=== PATIENT | female | born 1945 | race Caucasian/White ===

== ENCOUNTER 2018-06-01 12:47 | Emergency (ER) | payer MEDICARE, OTHER ==
--- NOTE | 2018-06-01 13:11 | ED ---
General Adult HPI - General Chief complaint: Extremity Injury, Lower Stated complaint: Lt leg pain Time Seen by Provider: 06/01/18 12:50 Source: EMS, RN notes reviewed Mode of arrival: EMS Limitations: altered mental status - History of Present Illness Initial comments: This is a 73-year-old female was sent to the emergency department to rule out DVT. Patient is unable give any history because she is alert and oriented times one and the only thing that she tells me is that she has no leg pain anymore she would like to go back to her room. According to the reports she has been complaining about leg pain today so the doctor [facility] and to rule out DVT of the left leg. There is been no report of any difficulty breathing leg swelling or leg redness. Patient has not had any reported fevers. There is no caregiver or family member with the patient so no further history is available currently - Related Data Previous Rx's Medication Instructions Recorded Acetaminophen Tab [Tylenol] 650 mg PO Q4HR PRN #0 tab 05/26/15 Ensure Complete 1 can PO TID-W/MEALS liquid 05/26/15 Hydrocortisone Cream 1 applic TOPICAL TID PRN #0 applic 05/26/15 [Hydrocortisone 2.5% Cream] Melatonin 3 mg PO HS tab 05/26/15 Metoprolol Tartrate [Lopressor] 12.5 mg PO BID tab 05/26/15 Levofloxacin [Levaquin] 250 mg PO 1600 #8 tab 05/27/15 Allergies Allergy/AdvReac Type Severity Reaction Status Date / Time aspirin Allergy Mild Nausea Verified 06/01/18 12:49 codeine Allergy Mild Nausea Verified 06/01/18 12:49 Penicillins Allergy Unknown Verified 06/01/18 12:49 cod Allergy Severe Unknown Uncoded 06/01/18 12:49 Review of Systems ROS Statement: Those systems with pertinent positive or pertinent negative responses have been documented in the HPI. ROS Other: All systems not noted in ROS Statement are negative. Past Medical History Past Medical History: Asthma, Chest Pain / Angina, Dementia, Hypertension, Memory Impairment, Sleep Apnea/CPAP/BIPAP Additional Past Medical History / Comment(s): recent fracture humerus/ compression fracture, constipation, diverticulitis(per colonoscopy), ddd lumbar spine, History of Any Multi-Drug Resistant Organisms: None Reported Past Surgical History: Back Surgery, Orthopedic Surgery Past Anesthesia/Blood Transfusion Reactions: No Reported Reaction Past Psychological History: Anxiety, Depression Smoking Status: Former smoker Past Alcohol Use History: Heavy Past Drug Use History: None Reported - Past Family History Father Family Medical History: Cancer Mother Additional Family Medical History / Comment(s): HEART DISEASE General Exam - General Exam Comments Initial Comments: GENERAL: Patient is well-developed and well-nourished. Patient is nontoxic and well- hydrated and is in no acute distress. ENT: Neck is soft and supple. No significant lymphadenopathy is noted. Oropharynx is clear. Moist mucous membranes. EYES: The sclera were anicteric and conjunctiva were pink and moist. Extraocular movements were intact and pupils were equal round and reactive to light. Eyelids were unremarkable. PULMONARY: Unlabored respirations. Good breath sounds bilaterally. No audible rales rhonchi or wheezing was noted. CARDIOVASCULAR: There is a regular rate and rhythm ABDOMEN: Soft and nontender with normal bowel sounds. SKIN: Skin is clear with no lesions or rashes and otherwise unremarkable. NEUROLOGIC: Patient is alert and oriented times one. Cranial nerves II through XII are grossly intact. Motor and sensory are also intact. Normal speech and volume. Symmetrical smile. MUSCULOSKELETAL: Normal extremities with adequate strength and full range of motion. No lower extremity swelling or edema. No calf tenderness. Patient has no calf tenderness and there is no swelling LYMPHATICS: No significant lymphadenopathy is noted PSYCHIATRIC: Normal psychiatric evaluation. Limitations: altered mental status Course Vital Signs 06/01/18 12:48 Temperature 98.5 F Pulse Rate 60 Respiratory 18 Rate Blood Pressure 165/79 O2 Sat by Pulse 95 Oximetry Medical Decision Making - Medical Decision Making Bilateral ultrasounds were negative for DVT. Bilateral legs were done because the daughter stated that the patient complained of right leg pain. The [facility] stated that. Patient complains of left leg pain. I went back in the room and reevaluated the patient the daughter was present patient had no complaints at this time. Patient and full range of motion of both hips knees and ankles. Disposition Clinical Impression: Leg pain Disposition: HOME SELF-CARE Condition: Good Instructions: Leg Pain (ED) Is patient prescribed a controlled substance at d/c from ED?: No Referrals: Rory Ferguson DO [Primary Care Provider] - 1-2 days Time of Disposition: 14:08
--- NOTE | 2018-06-01 14:01 | US ---
EXAMINATION TYPE: US venous doppler duplex LE BI DATE OF EXAM: 06/01/2018 1:53 PM COMPARISON: NONE CLINICAL HISTORY: Pain. Leg pain SIDE PERFORMED: Bilateral TECHNIQUE: The lower extremity deep venous system is examined utilizing real time linear array sonog jerilyn with graded compression, doppler sonography and color-flow sonography. VESSELS IMAGED: External Iliac Vein (EIV) Common Femoral Vein Deep Femoral Vein Greater Saphenous Vein * Femoral Vein Popliteal Vein Small Saphenous Vein * Proximal Calf Veins (* superficial vessels) Right Leg: Appears negative for DVT Left Leg: Appears negative for DVT IMPRESSION: 1. No diagnostic evidence of DVT as visualized.
[2018-06-01 15:57] VITALS: BP 149/79; PULSE 66; RESP 20; TEMP 98
== END 2018-06-01 15:55 | disposition home or self-care (01) ==
LOC: EC 12:47
DX: M79.605 Pain in left leg (principal); G47.30 Sleep apnea, unspecified; Z88.0 Allergy status to penicillin; Z88.5 Allergy status to narcotic agent; Z88.6 Allergy status to analgesic agent; Z91.013 Allergy to seafood; Z87.891 Personal history of nicotine dependence
CPT/HCPCS: 93970; 99284

== ENCOUNTER 2018-08-19 14:48 | Observation (INO) | payer MEDICARE ==
--- NOTE | 2018-08-19 15:40 | ED ---
General Adult HPI - General Chief complaint: Psychiatric Symptoms Stated complaint: Mental Health Time Seen by Provider: 08/19/18 14:54 Source: EMS Mode of arrival: EMS Limitations: altered mental status - History of Present Illness Initial comments: Dictation was produced using [employer] dictation software. please excuse any grammatical, word or spelling errors. Chief Complaint: 33-year-old female past medical history of dementia, memory impairment, sleep apnea, psychiatric disease presents with aggressive and combative behavior at residential. History of Present Illness: Patient is 73-year-old female. Patient has history of psychiatric disease, dementia. She was seen today the swelling abnormal behavior. The report that patient has been more confused and combative recently. Patient has been refusing to take her medications. Daughter who is at bedside with patient reports that she had smeared feces on her room chair. Patient also has been hiding her medications in her mouth and spitting them out. Patient has no complaints at this time. Per daughter patient is acting within reasonable limits. The ROS documented in this emergency department record has been reviewed and confirmed by me. Those systems with pertinent positive or negative responses have been documented in the HPI. All other systems are other negative and/or noncontributory. PHYSICAL EXAM: General Impression: Alert and oriented x3, not in acute distress HEENT: Normocephalic atraumatic, extra-ocular movements intact, pupils equal and reactive to light bilaterally, mucous membranes moist. Cardiovascular: Heart regular rate and rhythm, S1&S2 audible, no murmurs, rubs or gallops Chest: Lungs clear to auscultation bilaterally, no rhonchi, no wheeze, no rales Abdomen: Bowel sounds present, abdomen soft, non-tender, non-distended, no organomegaly Musculoskeletal: Pulses present and equal in all extremities, no peripheral edema Motor: Power 5/5 bilaterally, no focal deficits noted Neurological: CN II-XII grossly intact, no focal motor or sensory deficits noted Skin: Intact with no visualized rashes Psych: Pleasant ED course: 73-year-old female presents with combativeness, medication noncompliance and aggressive behavior at residential. As upon arrival are within acceptable limits.Laboratory evaluation obtained. Leukocytosis of 14.4. Rest of CBC unremarkable. Metabolic panel is grossly unremarkable. Urinalysis consistent with urinary tract infection. Rapid urine drug screen is negative. Given patient's symptoms of acute delirium in abnormal behavior. This is likely secondary to urinary tract infection. Patient be admitted. She is given IV antibiotics. Psychiatry to be on consult. She reevaluated found in stable medical condition. Patient continues to be pleasant and responsive. No aggressive or combative behavior noted while patient was in emergency department. - Related Data Home Medications Medication Instructions Recorded Confirmed Acetaminophen Tab [Tylenol] 500 mg PO QID 06/01/18 08/19/18 Acetaminophen [Tylenol Arthritis] 650 mg PO Q8HR PRN 06/01/18 08/19/18 Albuterol Nebulized [Ventolin 2.5 mg INHALATION RT-Q6H PRN 06/01/18 08/19/18 Nebulized] Cholecalciferol (Vitamin D3) 2,000 unit PO DAILY@1300 06/01/18 08/19/18 [Vitamin D3] Lactulose 10 gm PO Q12HR 06/01/18 08/19/18 Sertraline [Zoloft] 50 mg PO DAILY@0900 06/01/18 08/19/18 risperiDONE [Risperdal M-Tab] 0.5 mg PO DAILY@1700 06/01/18 08/19/18 Metoprolol Tartrate [Lopressor] 12.5 mg PO BID 08/19/18 08/19/18 Multivitamins, Thera [Multivitamin 1 tab PO DAILY 08/19/18 08/19/18 (formulary)] diphenhydrAMINE [Benadryl] 25 mg PO Q8H PRN 08/19/18 08/19/18 Allergies Allergy/AdvReac Type Severity Reaction Status Date / Time aspirin Allergy Mild Nausea Verified 08/19/18 15:07 codeine Allergy Mild Nausea Verified 08/19/18 15:07 Penicillins Allergy Unknown Verified 08/19/18 15:07 cod Allergy Severe Unknown Uncoded 08/19/18 14:59 Review of Systems ROS Statement: Those systems with pertinent positive or pertinent negative responses have been documented in the HPI. ROS Other: All systems not noted in ROS Statement are negative. Past Medical History Past Medical History: Asthma, Chest Pain / Angina, Dementia, Hypertension, Memory Impairment, Sleep Apnea/CPAP/BIPAP Additional Past Medical History / Comment(s): recent fracture humerus/ compression fracture, constipation, diverticulitis(per colonoscopy), ddd lumbar spine, History of Any Multi-Drug Resistant Organisms: None Reported Past Surgical History: Back Surgery, Orthopedic Surgery Past Anesthesia/Blood Transfusion Reactions: No Reported Reaction Past Psychological History: Anxiety, Depression Smoking Status: Former smoker Past Alcohol Use History: Heavy Past Drug Use History: None Reported - Past Family History Father Family Medical History: Cancer Mother Additional Family Medical History / Comment(s): HEART DISEASE General Exam Limitations: altered mental status Course Vital Signs 08/19/18 14:56 Temperature 99.0 F Pulse Rate 77 Respiratory 18 Rate Blood Pressure 150/92 O2 Sat by Pulse 96 Oximetry Medical Decision Making - Lab Data Result diagrams: 08/19/18 17:20 08/19/18 17:20 Lab Results 08/19/18 08/19/18 08/19/18 Range/Units 17:20 17:20 17:50 WBC 14.4 H (3.8-10.6) k/uL RBC 3.81 (3.80-5.40) m/uL Hgb 13.2 (11.4-16.0) gm/dL Hct 39.1 (34.0-46.0) % MCV 102.7 H (80.0-100.0) fL MCH 34.6 (25.0-35.0) pg MCHC 33.7 (31.0-37.0) g/dL RDW 13.5 (11.5-15.5) % Plt Count 395 (150-450) k/uL Neutrophils % 68 % Lymphocytes % 21 % Monocytes % 5 % Eosinophils % 4 % Basophils % 0 % Neutrophils # 9.7 H (1.3-7.7) k/uL Lymphocytes # 3.0 (1.0-4.8) k/uL Monocytes # 0.8 (0-1.0) k/uL Eosinophils # 0.6 (0-0.7) k/uL Basophils # 0.1 (0-0.2) k/uL Macrocytosis Slight Sodium 142 (137-145) mmol/L Potassium 4.0 (3.5-5.1) mmol/L Chloride 108 H (98-107) mmol/L Carbon Dioxide 26 (22-30) mmol/L Anion Gap 8 mmol/L BUN 19 H (7-17) mg/dL Creatinine 0.71 (0.52-1.04) mg/dL Est GFR (CKD-EPI)AfAm >90 (>60 ml/min/1.73 sqM) Est GFR (CKD-EPI)NonAf 86 (>60 ml/min/1.73 sqM) Glucose 125 H (74-99) mg/dL Calcium 9.6 (8.4-10.2) mg/dL Urine Color Yellow Urine Appearance Cloudy H (Clear) Urine pH 5.5 (5.0-8.0) Ur Specific [place] 1.026 (1.001-1.035) Urine Protein Trace H (Negative) Urine Glucose (UA) Negative (Negative) Urine Ketones Negative (Negative) Urine Blood Moderate H (Negative) Urine Nitrite Positive H (Negative) Urine Bilirubin Negative (Negative) Urine Urobilinogen <2.0 (<2.0) mg/dL Ur Leukocyte Esterase Small H (Negative) Urine RBC 8 H (0-5) /hpf Urine WBC 55 H (0-5) /hpf Ur Squamous Epith Cells 4 (0-4) /hpf Amorphous Sediment Occasional H (None) /hpf Urine Bacteria Many H (None) /hpf Urine Mucus Few H (None) /hpf Urine Opiates Screen Not Detected (NotDetected) Ur Oxycodone Screen Not Detected (NotDetected) Urine Methadone Screen Not Detected (NotDetected) Ur Propoxyphene Screen Not Detected (NotDetected) Ur Barbiturates Screen Not Detected (NotDetected) U Tricyclic Antidepress Not Detected (NotDetected) Ur Phencyclidine Scrn Not Detected (NotDetected) Ur Amphetamines Screen Not Detected (NotDetected) U Methamphetamines Scrn Not Detected (NotDetected) U Benzodiazepines Scrn Not Detected (NotDetected) Urine Cocaine Screen Not Detected (NotDetected) U Marijuana (THC) Screen Not Detected (NotDetected) Disposition Clinical Impression: UTI (urinary tract infection), Acute delirium Disposition: ADMITTED IP TO THIS HOSP Condition: Fair Referrals: Luis Wan MD [Primary Care Provider] - 1-2 days Decision Time: 19:07
--- NOTE | 2018-08-19 17:01 | XR ---
EXAMINATION TYPE: XR chest 2V DATE OF EXAM: 08/19/2018 COMPARISON: 05/21/2015 HISTORY: Confusion TECHNIQUE: Frontal and lateral views of the chest are obtained. FINDINGS: There is no heart failure nor confluent pneumonic infiltrate. Costophrenic angles are rodriguez r. Bony thorax is intact. IMPRESSION: No active cardiopulmonary disease. Cardiac silhouette increased compared to last exam. T here is probably mild cardiomegaly.
[2018-08-19 17:44] LABS: Anion Gap 8 mmol/L; Blood Urea Nitrogen 19 mg/dL (7-17); Calcium 9.6 mg/dL (8.4-10.2); Carbon Dioxide 26 mmol/L (22-30); Chloride 108 mmol/L (98-107); Glucose 125 mg/dL (74-99); Sodium 142 mmol/L (137-145)
[2018-08-19 17:45] LABS: Basophils # (A) 0.1 k/uL (0-0.2); Basophils % (A) 0 %; Eosinophils # (A) 0.6 k/uL (0-0.7); Eosinophils % (A) 4 %; HCT 39.1 % (34.0-46.0); HGB 13.2 gm/dL (11.4-16.0); Lymphocytes % (A) 21 %; MCH 34.6 pg (25.0-35.0); MCHC 33.7 g/dL (31.0-37.0); MCV 102.7 fL (80.0-100.0); Macrocytosis Slight; Monocytes # (A) 0.8 k/uL (0-1.0); Monocytes % (A) 5 %; Neutrophils # (A) 9.7 k/uL (1.3-7.7); Neutrophils % (A) 68 %; Platelet Count 395 k/uL (150-450); RBC 3.81 m/uL (3.80-5.40); RDW 13.5 % (11.5-15.5); WBC 14.4 k/uL (3.8-10.6)
[2018-08-19 18:13] LABS: Amorphous Sediment,Urine Occasional /hpf; Appearance,Urine Cloudy (Clear); Bacteria,Urine Many /hpf; Bilirubin,Urine Negative (Negative); Blood,Urine Moderate (Negative); Color,Urine Yellow; Glucose,Urine (UA) Negative (Negative); Ketones,Urine Negative (Negative); Leukocyte Esterase,Urine Small (Negative); Mucus,Urine Few /hpf; Nitrite,Urine Positive (Negative); PH, Urine 5.5 (5.0-8.0); Protein,Urine Trace (Negative); RBC,Urine 8 /hpf (0-5); Specific Gravity,Urine 1.026 (1.001-1.035); Squamous Epithelial Cell,Urine 4 /hpf (0-4); Urobilinogen,Urine <2.0 mg/dL (<2.0)
[2018-08-19 18:20] LABS: Cocaine Screen,Urine Not Detected (NotDetected); Opiate Screen,Urine Not Detected (NotDetected); Phencyclidine Screen,Urine Not Detected (NotDetected); Urn Cannabinoid Scrn Not Detected (NotDetected)
[2018-08-19 18:21] LABS: Amphetamine Screen,Urine Not Detected (NotDetected); Barbiturate Screen,Urine Not Detected (NotDetected); Benzodiazepines Screen,Urine Not Detected (NotDetected); Methadone Screen, Urine Not Detected (NotDetected); Oxycodone Screen, Urine Not Detected (NotDetected); Tricyclic Antidepressant,Urine Not Detected (NotDetected)
[2018-08-19] MEDS ORDERED: NALOXONE 0.4 MG/ML 1 ML VIAL IV PRN (19:07)
[2018-08-19] MEDS ORDERED: NON-FORMULARY DRUG (Acetaminophen [Tylenol Arthritis] 650 MG) PO PRN (19:10)
[2018-08-19] MEDS ORDERED: ALBUTEROL NEBULIZED 2.5 MG/3 ML INHALATION PRN (19:10)
[2018-08-19] MEDS: SODIUM CHLORIDE 0.9% 1,000 ML IV SCH (19:16)
[2018-08-19] MEDS: ACETAMINOPHEN TAB 325 MG TAB PO PRN (22:09)
[2018-08-19] MEDS: METOPROLOL TARTRATE 12.5 MG TAB PO SCH (22:09)
[2018-08-20] MEDS: SERTRALINE 50 MG TAB PO SCH (08:27)
[2018-08-20] MEDS: METOPROLOL TARTRATE 12.5 MG TAB PO SCH ×2 (08:27→20:29)
[2018-08-20] MEDS: ACETAMINOPHEN TAB 325 MG TAB PO PRN ×2 (10:31→20:23)
[2018-08-20 11:53] VITALS: BMI 33.3
[2018-08-20] MEDS ORDERED: ALPRAZolam 0.25 MG TAB PO PRN (15:44)
[2018-08-20] MEDS ORDERED: TEMAZEPAM 15 MG CAP PO PRN (15:44)
[2018-08-20] MEDS ORDERED: LORazepam 2 MG/ML INJ IV PRN (15:44)
[2018-08-20] MEDS ORDERED: LORazepam 0.5 MG TAB PO PRN (15:44)
--- NOTE | 2018-08-20 16:07 | HP ---
HISTORY AND PHYSICAL DATE OF SERVICE: 08/20/2018. CHIEF COMPLAINT: Change in mental status. HISTORY OF PRESENT ILLNESS: This 73-year-old woman with a past medical history of multiple medical problems including history of asthma, history of dementia, hypertension, history of sleep apnea, history of back surgery, history of anxiety and depression, being followed by Dr. Wan in the outpatient setting, was admitted with change in mental status. The patient has multiple psychiatric illness also. The patient was found to be aggressive and combative at the [facility]. The patient has UTI with sepsis. The patient is being closely monitored. There is no history of fevers or rigors. No history of headache, loss of consciousness, seizures. PAST MEDICAL HISTORY: History of asthma, dementia, hypertension, sleep apnea, history of back surgery, anxiety and depression. MEDICATIONS: Prior to admission include home medications of: 1. Risperdal 0.5 mg p.o. daily. 2. Benadryl 25 mg q.i.d. 3. Zoloft 50 mg p.o. daily. 4. Multivitamins daily. 5. Lopressor 2.5 mg b.i.d. 6. Lactulose 10 mg p.o. b.i.d. 7. Vitamin D3, 2000 daily. 8. Ventolin 2.5 every 6 hours p.r.n. 9. Tylenol 500 mg q.i.d. 10.Tylenol 650 every 8 p.r.n. ALLERGIES: ASPIRIN, CODEINE, PENICILLIN. FAMILY HISTORY: History of heart disease in the family. SOCIAL HISTORY: No history of smoking. No history of alcohol intake. REVIEW OF SYSTEMS: ENT: No diminished vision or hearing. CARDIOVASCULAR: No angina. GI: As mentioned. : No dysuria. NERVOUS SYSTEM: No numbness or weakness. MUSCULOSKELETAL: As mentioned. HEMATOLOGY: As mentioned. ENDOCRINE: As mentioned. CONSTITUTIONAL: As mentioned. PSYCHIATRY: As mentioned. PHYSICAL EXAMINATION: Alert, oriented x2. Pulse 74, blood pressure 150/74, respirations 16, temperature 98.3, pulse ox 97% on room air. HEENT/NECK: Conjunctivae normal. CARDIOVASCULAR: S1 and S2 muffled. LUNGS: Breath sounds diminished in the bases. Scattered rhonchi and crackles. ABDOMEN: Soft, nontender. No mass. EXTREMITIES: Legs no edema. No swelling. NERVOUS SYSTEM: Higher functions as mentioned earlier. Moves all 4 limbs. No focal deficits. LYMPHATICS: No lymph nodes palpable in the neck or axillae. SKIN: No bruises. LAB STUDIES: WBC 14.4, sodium 142, potassium 4. UA noted. ASSESSMENT: 1. Acute urinary tract infection with sepsis present on admission. 2. Change in mental status acute on chronic metabolic encephalopathy secondary to urinary tract infection. 3. Increased WBC. 4. History of asthma. 5. History of chest pain. 6. History dementia. 7. Hypertension. 8. History of sleep apnea. 9. History of recent humerus fracture. 10.History of constipation. 11.History of back surgery. 12.Anxiety and depression. RECOMMENDATIONS AND DISCUSSION: In this 73-year-old woman who presented with multiple complex medical issues, at this time I recommend to continue current medications and symptomatic treatment. Otherwise, I would recommend broad-spectrum IV antibiotics. Resume the home medications. Follow the cultures. Otherwise, symptomatic treatment. Further recommendations to follow. MMODL / IJN: [id number] /
[2018-08-20] MEDS ORDERED: risperiDONE ODT 1 MG TAB PO SCH (17:00)
--- NOTE | 2018-08-20 17:26 | P.CN ---
Psychiatric Consult - . Consult date: 08/20/18 Consult:: 08/20/18 17:21 Chief Complaint : Altered Mental status HPI : Ms. Ahn is 73 yo single female with h/o Dementia admitted here secondary to worsening confusion. She is diagnosed with UTI and has been treated accordingly. Patient is pleasantly confused and poor historian. Majority of history provided from her daughter whom I had detailed discussion. She is concerned about her current medications. Patient has long h/o Frontal Lobe dementia and recent UTI. MSE : Alert, awake, interactive. Poor eye contact. Speech few words. Mood anxious with congruent affect Denies having any auditory and visual hallucinations. Has no suicidal ideation. Insight and judgment impaired. Plan : Delirium secondary to UTI Dementia associated behaviors Will discontinue Risperdal due to major side effects and per family wishes. Will start trial of Abilify 2 mg po qam and use Atican 0.5 mg po TOD to help with sun downing. Psychiatry will follow.
[2018-08-20] MEDS: ARIPiprazole 2 MG TAB PO SCH (18:32)
[2018-08-20] MEDS: PHENAZOPYRIDINE 100 MG TAB PO SCH ×2 (18:32→20:24)
[2018-08-20] MEDS: HEPARIN SODIUM,PORCINE 5,000 UNIT/ML 1 ML VIAL SQ SCH (20:23)
[2018-08-20] MEDS: LACTULOSE 20 GM/30 ML CUP PO SCH (20:23)
[2018-08-20] MEDS: SODIUM CHLORIDE 0.9% 1,000 ML IV SCH (20:24)
[2018-08-20 21:28] VITALS: RESP 18
[2018-08-20] MEDS: LORazepam 0.5 MG TAB PO SCH (23:51)
[2018-08-21] MEDS: METOPROLOL TARTRATE 12.5 MG TAB PO SCH ×2 (09:39→21:30)
[2018-08-21] MEDS: LACTULOSE 20 GM/30 ML CUP PO SCH ×2 (09:39→21:25)
[2018-08-21] MEDS: LORazepam 0.5 MG TAB PO SCH ×3 (09:39→21:30)
[2018-08-21] MEDS: PANTOPRAZOLE 40 MG TABLET PO SCH (09:39)
[2018-08-21] MEDS: CHOLECALCIFEROL 1,000 UNIT TAB PO SCH (09:39)
[2018-08-21] MEDS: FOLIC ACID 1 MG TAB PO SCH (09:40)
[2018-08-21] MEDS: PHENAZOPYRIDINE 100 MG TAB PO SCH ×3 (09:40→21:30)
[2018-08-21] MEDS: THIAMINE 100 MG TAB PO SCH (09:40)
[2018-08-21] MEDS: ARIPiprazole 2 MG TAB PO SCH (09:41)
[2018-08-21] MEDS: HEPARIN SODIUM,PORCINE 5,000 UNIT/ML 1 ML VIAL SQ SCH ×2 (09:41→21:32)
[2018-08-21] MEDS: SERTRALINE 50 MG TAB PO SCH (09:41)
[2018-08-21] MEDS: MULTIVITAMINS, THERA 1 EACH TAB PO SCH (09:44)
[2018-08-21] MEDS: cefTRIAXone 1,000 MG VIAL (IM USE) IM SCH (11:22)
[2018-08-21 16:29] LABS: Anion Gap 9 mmol/L; Blood Urea Nitrogen 12 mg/dL (7-17); Calcium 9.6 mg/dL (8.4-10.2); Carbon Dioxide 27 mmol/L (22-30); Chloride 109 mmol/L (98-107); Glucose 124 mg/dL (74-99); Potassium 4.1 mmol/L (3.5-5.1); Sodium 145 mmol/L (137-145)
[2018-08-21 16:37] LABS: Basophils % (A) 0 %; Eosinophils # (A) 0.4 k/uL (0-0.7); Eosinophils % (A) 4 %; HGB 13.3 gm/dL (11.4-16.0); Lymphocytes # (A) 2.4 k/uL (1.0-4.8); Lymphocytes % (A) 22 %; MCH 35.4 pg (25.0-35.0); MCHC 33.1 g/dL (31.0-37.0); MCV 106.9 fL (80.0-100.0); Macrocytosis Moderate; Mean Platelet Volume 7.1; Monocytes # (A) 0.5 k/uL (0-1.0); Monocytes % (A) 5 %; Neutrophils # (A) 7.6 k/uL (1.3-7.7); Neutrophils % (A) 68 %; Platelet Count 365 k/uL (150-450); RBC 3.74 m/uL (3.80-5.40); RDW 13.3 % (11.5-15.5); WBC 11.1 k/uL (3.8-10.6)
--- NOTE | 2018-08-21 17:05 | PN ---
PROGRESS NOTE DATE OF SERVICE: 08/21/2018 This 73-year-old woman who was admitted with acute UTI with sepsis also had change in mental status also. The patient is confused. The patient pulled IV. Psychiatry also saw the patient. Patient is receiving IV Rocephin at this time. The cultures showed gram-negative bacilli. No chest pain. No palpitations. Medications adjusted per Psychiatry. EXAM: Alert and oriented x1. Pulse 82, blood pressure 172/90, respirations 18, temperature 97.2, pulse ox 94% on room air. HEENT: Conjunctivae normal. NECK: No jugular venous distention. CARDIOVASCULAR: S1, S2 muffled. RESPIRATORY: Breath sounds diminished in the bases. Scattered rhonchi. ABDOMEN: Soft. NERVOUS SYSTEM: No focal deficits. LAB STUDIES: WBC 14.4. UA noted. Urine culture noted. ASSESSMENT: 1. Acute urinary tract infection with sepsis, present on admission. 2. Change in mental status acute metabolic secondary to urinary tract infection. 3. Increased WBC. 4. History of asthma. 5. History of dementia. 6. History of chest pain. 7. Hypertension. 8. History of sleep apnea. 9. History of recent humerus fracture. 10.History of constipation. 11.History of back surgery. 12.Anxiety, depression. RECOMMENDATIONS AND DISCUSSION: I recommend to continue current management, continue monitoring and symptomatic treatment. Otherwise at this time I recommend continue the antibiotics. Await culture report. Guarded prognosis. Further recommendations to follow. MMODL / IJN: [id number] /
[2018-08-21] MEDS: SODIUM CHLORIDE 0.9% 1,000 ML IV SCH (21:25)
[2018-08-21] MEDS: ACETAMINOPHEN TAB 325 MG TAB PO PRN (21:30)
[2018-08-22 02:10] LABS: Glucose,Whole Blood 122 mg/dL (75-99)
[2018-08-22] MEDS: LORazepam 0.5 MG TAB PO SCH ×2 (07:56→17:30)
[2018-08-22] MEDS: ACETAMINOPHEN TAB 325 MG TAB PO PRN (07:58)
[2018-08-22] MEDS: PANTOPRAZOLE 40 MG TABLET PO SCH (07:58)
[2018-08-22] MEDS: cefTRIAXone 1,000 MG VIAL (IM USE) IM SCH (08:09)
[2018-08-22] MEDS: HEPARIN SODIUM,PORCINE 5,000 UNIT/ML 1 ML VIAL SQ SCH (08:09)
[2018-08-22] MEDS: ARIPiprazole 2 MG TAB PO SCH (08:10)
[2018-08-22] MEDS: PHENAZOPYRIDINE 100 MG TAB PO SCH ×2 (08:10→17:30)
[2018-08-22] MEDS: SERTRALINE 50 MG TAB PO SCH (08:11)
[2018-08-22] MEDS: METOPROLOL TARTRATE 12.5 MG TAB PO SCH (08:15)
[2018-08-22] MEDS: LACTULOSE 20 GM/30 ML CUP PO SCH (08:15)
[2018-08-22 09:15] LABS: Basophils % (A) 0 %; Eosinophils # (A) 0.6 k/uL (0-0.7); Eosinophils % (A) 6 %; HCT 42.1 % (34.0-46.0); HGB 13.7 gm/dL (11.4-16.0); Lymphocytes % (A) 31 %; MCH 34.3 pg (25.0-35.0); MCHC 32.5 g/dL (31.0-37.0); MCV 105.5 fL (80.0-100.0); Macrocytosis Slight; Mean Platelet Volume 6.6; Monocytes # (A) 0.5 k/uL (0-1.0); Monocytes % (A) 5 %; Neutrophils # (A) 5.5 k/uL (1.3-7.7); Neutrophils % (A) 56 %; Platelet Count 417 k/uL (150-450); RBC 3.99 m/uL (3.80-5.40); RDW 13.3 % (11.5-15.5); WBC 9.8 k/uL (3.8-10.6)
[2018-08-22 09:39] LABS: Anion Gap 11 mmol/L; Blood Urea Nitrogen 14 mg/dL (7-17); Calcium 9.7 mg/dL (8.4-10.2); Carbon Dioxide 26 mmol/L (22-30); Chloride 107 mmol/L (98-107); Glucose 124 mg/dL (74-99); Potassium 3.8 mmol/L (3.5-5.1); Sodium 144 mmol/L (137-145)
--- NOTE | 2018-08-22 11:50 | P.DS ---
Providers Date of admission: 08/19/18 19:07 Expected date of discharge: 08/22/18 Attending physician: Aster Edwards Consults: 08/19/18 19:08 Consult Physician Routine Consulting Provider: Aston Borrego Consult Reason/Comments: altered mental status Do you want consulting provider notified?: Yes 08/21/18 16:35 Consult Physician Routine Consulting Provider: Aston Borrego Consult Reason/Comments: legal guardian would like meds adjusted back to home meds and dose Do you want consulting provider notified?: Yes, Notify in am Primary care physician: Luis Wan Hospital Course: Final Diagnoses: -Sepsis secondary to Acute UTI with E. coli, present on admission -Continue mental status, acute metabolic encephalopathy secondary to acute UTI -Hypertension -History of recurrent humerus fracture -Anxiety, depression Hospital course: This is a 73-year-old female in with acute UTI, E. coli with sepsis, with change in mental status. Pleasantly confused. Evaluated by psychiatry with medications adjusted. Significant clinical improvement. Patient has been cleared by psychiatry for discharge. Patient is being discharged to [facility] subacute rehab in a stable condition with guarded prognosis. EXAM: GENERAL: Alert and oriented 1, no acute distress CARDIOVASCULAR: S1, S2 muffled. No murmur RESPIRATION: Breath sounds diminished in the bases. Scattered rhonchi. ABDOMEN: Soft, nontender . No guarding. Bowel sounds heard. NERVOUS SYSTEM: No focal deficits. The impression and plan of care has been dictated as directed. : I performed a history and examination of this patient, discussed the same with the dictator. I agree with the dictator's note ,documented as a scribe. Any additional findings or plans will be noted. Time taken: 35 minutes Patient Condition at Discharge: Stable Plan - Discharge Summary Discharge Rx Participant: Yes New Discharge Prescriptions: New Amoxicillin/Potassium Clav [Augmentin 875-125 Tablet] 1 tab PO Q12HR #10 tab LORazepam [Ativan] 0.5 mg PO Q8HR #9 tab Continue Albuterol Nebulized [Ventolin Nebulized] 2.5 mg INHALATION RT-Q6H PRN PRN Reason: Shortness Of Breath Acetaminophen Tab [Tylenol] 500 mg PO QID Lactulose 10 gm PO Q12HR Sertraline [Zoloft] 50 mg PO DAILY@0900 Cholecalciferol (Vitamin D3) [Vitamin D3] 2,000 unit PO DAILY@1300 risperiDONE [Risperdal M-Tab] 0.5 mg PO DAILY@1700 Acetaminophen [Tylenol Arthritis] 650 mg PO Q8HR PRN PRN Reason: Pain diphenhydrAMINE [Benadryl] 25 mg PO Q8H PRN PRN Reason: SWELLING Metoprolol Tartrate [Lopressor] 12.5 mg PO BID Multivitamins, Thera [Multivitamin (formulary)] 1 tab PO DAILY Discharge Medication List Acetaminophen Tab [Tylenol] 500 mg PO QID 06/01/18 [History] Acetaminophen [Tylenol Arthritis] 650 mg PO Q8HR PRN 06/01/18 [History] Albuterol Nebulized [Ventolin Nebulized] 2.5 mg INHALATION RT-Q6H PRN 06/01/18 [ History] Cholecalciferol (Vitamin D3) [Vitamin D3] 2,000 unit PO DAILY@1300 06/01/18 [ History] Lactulose 10 gm PO Q12HR 06/01/18 [History] Sertraline [Zoloft] 50 mg PO DAILY@0900 06/01/18 [History] risperiDONE [Risperdal M-Tab] 0.5 mg PO DAILY@1700 06/01/18 [History] Metoprolol Tartrate [Lopressor] 12.5 mg PO BID 08/19/18 [History] Multivitamins, Thera [Multivitamin (formulary)] 1 tab PO DAILY 08/19/18 [History ] diphenhydrAMINE [Benadryl] 25 mg PO Q8H PRN 08/19/18 [History] Amoxicillin/Potassium Clav [Augmentin 875-125 Tablet] 1 tab PO Q12HR #10 tab [Rx] LORazepam [Ativan] 0.5 mg PO Q8HR #9 tab 08/22/18 [Rx] Follow up Appointment(s)/Referral(s): Luis Wan MD [Primary Care Provider] - 3 Days Activity/Diet/Wound Care/Special Instructions: Storm CUEVAS, BMP in 3 days
[2018-08-22 12:04] VITALS: BP 162/84; PULSE 68; TEMP 97.5
[2018-08-22] MEDS: THIAMINE 100 MG TAB PO SCH (13:31)
[2018-08-22] MEDS: MULTIVITAMINS, THERA 1 EACH TAB PO SCH (13:31)
[2018-08-22] MEDS: FOLIC ACID 1 MG TAB PO SCH (13:31)
[2018-08-22] MEDS: CHOLECALCIFEROL 1,000 UNIT TAB PO SCH (13:32)
[2018-08-22] MEDS: SODIUM CHLORIDE 0.9% 1,000 ML IV SCH (13:40)
== END 2018-08-22 19:38 ==
LOC: EC 14:48 → INTOOBSV 19:07 → 3NMEDONC 19:07
PROVIDERS: ADMIT Hospitalist; ATTEND Hospitalist
DX: A41.51 Sepsis due to Escherichia coli [E. coli] (principal); N39.0 Urinary tract infection, site not specified; G93.41 Metabolic encephalopathy; I10 Essential (primary) hypertension; F41.9 Anxiety disorder, unspecified; F32.9 Major depressive disorder, single episode, unspecified; J45.909 Unspecified asthma, uncomplicated; G47.30 Sleep apnea, unspecified; Z99.89 Dependence on other enabling machines and devices; F03.90 Unspecified dementia, unspecified severity, without behavioral disturbance, psychotic disturbance, mood disturbance, and anxiety; K59.00 Constipation, unspecified; R41.3 Other amnesia; Z91.14 Patient's other noncompliance with medication regimen; M51.36 Other intervertebral disc degeneration, lumbar region; Z79.899 Other long term (current) drug therapy; Z87.891 Personal history of nicotine dependence; Z88.5 Allergy status to narcotic agent; Z88.0 Allergy status to penicillin; Z88.6 Allergy status to analgesic agent; Z91.018 Allergy to other foods; Z82.49 Family history of ischemic heart disease and other diseases of the circulatory system; Z80.9 Family history of malignant neoplasm, unspecified
CPT/HCPCS: 96365; 96366; 96372 ×2; 96373; 99285; 51798; 36415; 80048 ×3; 85025 ×3; 81001; 80306; 87086; 87077; 87186; 71046; G0378 ×5; J1644 ×3; J0696 ×4

== ENCOUNTER 2018-11-08 17:35 | Emergency (ER) | payer MEDICARE, OTHER ==
[2018-11-08 17:58] VITALS: PULSE 83; TEMP 97.6
[2018-11-08] MEDS ORDERED: diphenhydrAMINE 25 MG CAP PO STA (18:13)
[2018-11-08] MEDS ORDERED: FAMOTIDINE 20 MG TAB PO STA (18:13)
--- NOTE | 2018-11-08 18:19 | ED ---
General Adult HPI - General Chief complaint: Recheck/Abnormal Lab/Rx Stated complaint: Swollen Lip Time Seen by Provider: 11/08/18 17:48 Source: patient, EMS, RN notes reviewed, old records reviewed Mode of arrival: EMS Limitations: no limitations, altered mental status - History of Present Illness Initial comments: 73-year-old female history of dementia presents with lower lip swelling. History is unable to contribute to history. She has no complaints. She is confused but pleasant. Reveal transfer documentation indicates the patient developed lower lip swelling which is predominantly on the right side. There is no reported dyspnea. Review the medical record is not indicated the use of any PONCE inhibitor's. EMS does not report any trauma. - Related Data Home Medications Medication Instructions Recorded Confirmed Acetaminophen [Tylenol Arthritis] 650 mg PO Q8HR PRN 06/01/18 11/08/18 Cholecalciferol (Vitamin D3) 2,000 unit PO DAILY@1200 06/01/18 11/08/18 [Vitamin D3] Lactulose 10 gm PO BID@0900,2100 06/01/18 11/08/18 Sertraline [Zoloft] 50 mg PO DAILY@0900 06/01/18 11/08/18 Metoprolol Tartrate [Lopressor] 12.5 mg PO BID@0900,2100 08/19/18 11/08/18 Multivitamins, Thera [Multivitamin 1 tab PO DAILY@1200 08/19/18 11/08/18 (formulary)] Pantoprazole [Protonix] 40 mg PO DAILY@0600 11/08/18 11/08/18 Previous Rx's Medication Instructions Recorded Folic Acid 1 mg PO DAILY@1200 tab 08/22/18 Thiamine [Vitamin B-1] 100 mg PO DAILY@1200 tab 08/22/18 Allergies Allergy/AdvReac Type Severity Reaction Status Date / Time aspirin Allergy Mild Nausea Verified 11/08/18 17:40 codeine Allergy Mild Nausea Verified 11/08/18 17:40 Penicillins Allergy Unknown Verified 11/08/18 17:40 cod Allergy Severe Unknown Uncoded 08/19/18 14:59 Review of Systems ROS Statement: Those systems with pertinent positive or pertinent negative responses have been documented in the HPI. ROS Other: All systems not noted in ROS Statement are negative. Past Medical History Past Medical History: Asthma, Chest Pain / Angina, Dementia, Hypertension, Memory Impairment, Sleep Apnea/CPAP/BIPAP Additional Past Medical History / Comment(s): recent fracture humerus/compression fracture, constipation, diverticulitis(per colonoscopy), ddd lumbar spine, History of Any Multi-Drug Resistant Organisms: None Reported Past Surgical History: Back Surgery, Orthopedic Surgery Past Anesthesia/Blood Transfusion Reactions: No Reported Reaction Past Psychological History: Anxiety, Depression Smoking Status: Unknown if ever smoked Past Alcohol Use History: Heavy Past Drug Use History: None Reported - Past Family History Father Family Medical History: Cancer Mother Additional Family Medical History / Comment(s): HEART DISEASE General Exam Limitations: no limitations, altered mental status General appearance: alert, in no apparent distress Head exam: Present: atraumatic, normocephalic Eye exam: Present: normal appearance ENT exam: Present: other (Bright lower lip swelling, no laceration, no dental injury, no bony tenderness on the mandible or maxilla. No signs of facial trauma.) Respiratory exam: Present: normal lung sounds bilaterally. Absent: respiratory distress, wheezes Cardiovascular Exam: Present: regular rate, normal rhythm GI/Abdominal exam: Present: soft. Absent: distended, tenderness, guarding Extremities exam: Present: normal inspection, normal capillary refill. Absent: pedal edema Neurological exam: Present: alert. Absent: motor sensory deficit Psychiatric exam: Present: normal affect, normal mood Skin exam: Present: warm, dry, intact. Absent: cyanosis, diaphoretic Course Vital Signs 11/08/18 17:54 Temperature 97.6 F Pulse Rate 83 O2 Sat by Pulse 96 Oximetry Medical Decision Making - Medical Decision Making 73 presenting with lower lip swelling. No respiratory compromise, no tongue or uvular swelling. No current PONCE inhibitor's on review the medical record. Patient may have had minor trauma versus ALLERGIC reaction. She is well- appearing in her usual state of health, pleasant, no acute distress. She is observed in the emergency department for 90 minutes. There is no deterioration in her status. There is no change in her lip swelling. She will return to the [place] [facility], can be observed in the [place] [facility] and should return with worsening or changing symptoms. Disposition Clinical Impression: Contusion, lip Disposition: HOME SELF-CARE Condition: Good Instructions (If sedation given, give patient instructions): Contusion in Adults (ED) Is patient prescribed a controlled substance at d/c from ED?: No Referrals: Luis Wan MD [Primary Care Provider] - 1-2 days Time of Disposition: 18:54
== END 2018-11-08 21:18 | disposition home or self-care (01) ==
LOC: EC 17:35
DX: S00.531A Contusion of lip, initial encounter (principal); R41.0 Disorientation, unspecified; I10 Essential (primary) hypertension; F41.9 Anxiety disorder, unspecified; F32.9 Major depressive disorder, single episode, unspecified; G47.30 Sleep apnea, unspecified; Z87.81 Personal history of (healed) traumatic fracture; Z87.19 Personal history of other diseases of the digestive system; Z98.890 Other specified postprocedural states; Z99.89 Dependence on other enabling machines and devices; Z79.899 Other long term (current) drug therapy; Z88.0 Allergy status to penicillin; Z88.5 Allergy status to narcotic agent; Z88.6 Allergy status to analgesic agent; Z91.013 Allergy to seafood; X58.XXXA Exposure to other specified factors, initial encounter
CPT/HCPCS: 99283

== ENCOUNTER 2019-10-04 12:22 | Inpatient (IN) | payer MEDICARE, OTHER ==
[2019-10-04] MEDS ORDERED: diphenhydrAMINE 50 MG/ML 1 ML VIAL IVP STA (12:36)
[2019-10-04] MEDS ORDERED: methylPREDNISolone SOD SUCCI 125 MG/2 ML VIAL IV STA (12:46)
[2019-10-04] MEDS ORDERED: FAMOTIDINE 20 MG/2 ML VIAL IV STA (12:46)
--- NOTE | 2019-10-04 12:50 | ED ---
General Adult HPI - General Chief complaint: Allergic Reaction Stated complaint: Allergic reaction Time Seen by Provider: 10/04/19 12:37 Source: patient, EMS, RN notes reviewed Mode of arrival: EMS Limitations: altered mental status - History of Present Illness Initial comments: Patient is a pleasantly demented 74-year-old female presenting to the emergency Department with swelling. Onset of symptoms was reported as this morning after taking her medications. Patient is a extremely poor historian and unable to provide any significant history. Patient has no complaints at this time. Patient denies any dyspnea. Unclear if there is history of similar symptoms previously. - Related Data Home Medications Medication Instructions Recorded Confirmed Lactulose 10 gm PO BID@0900,209906/01/18 10/04/19 Metoprolol Tartrate [Lopressor] 12.5 mg PO BID@0900,209908/19/18 10/04/19 Atorvastatin [Lipitor] 20 mg PO HS@209910/04/19 10/04/19 Famotidine 20 mg PO HS@209910/04/19 10/04/19 Folic Acid 1 mg PO DAILY@0900 10/04/19 10/04/19 buPROPion HCL [Wellbutrin XL] 150 mg PO DAILY@0900 10/04/19 10/04/19 diphenhydrAMINE HCL [Benadryl] 25 mg PO Q6H PRN 10/04/19 10/04/19 metFORMIN HCL [Glucophage] 500 mg PO BID@0900,2100 10/04/19 10/04/19 Allergies Allergy/AdvReac Type Severity Reaction Status Date / Time aspirin Allergy Mild Nausea Verified 10/04/19 12:57 codeine Allergy Mild Nausea Verified 10/04/19 12:57 Penicillins Allergy Unknown Verified 10/04/19 12:57 cod Allergy Severe Unknown Uncoded 08/19/18 14:59 Review of Systems ROS Statement: Those systems with pertinent positive or pertinent negative responses have been documented in the HPI. ROS Other: All systems not noted in ROS Statement are negative. Constitutional: Denies: fever Eyes: Denies: eye pain ENT: Reports: other (Tongue swelling). Denies: ear pain Respiratory: Denies: cough, dyspnea Cardiovascular: Denies: chest pain Endocrine: Denies: fatigue Gastrointestinal: Denies: abdominal pain Genitourinary: Denies: dysuria Musculoskeletal: Denies: back pain Skin: Denies: rash Neurological: Denies: weakness Past Medical History Past Medical History: Asthma, Chest Pain / Angina, Dementia, Hypertension, Memory Impairment, Sleep Apnea/CPAP/BIPAP Additional Past Medical History / Comment(s): recent fracture humerus/compression fracture, constipation, diverticulitis(per colonoscopy), ddd lumbar spine, History of Any Multi-Drug Resistant Organisms: None Reported Past Surgical History: Back Surgery, Orthopedic Surgery Past Anesthesia/Blood Transfusion Reactions: No Reported Reaction Past Psychological History: Anxiety, Depression Smoking Status: Unknown if ever smoked Past Alcohol Use History: Heavy Past Drug Use History: None Reported - Past Family History Father Family Medical History: Cancer Mother Additional Family Medical History / Comment(s): HEART DISEASE General Exam Limitations: no limitations General appearance: alert, in no apparent distress Head exam: Present: normocephalic Eye exam: Present: PERRL, EOMI, other (Trace edema inferior orbital region) ENT exam: Present: other (Moderate edema of the tongue. Normal posterior pharynx and uvula on limited exam secondary to patient noncompliance. No edema of the lips.) Neck exam: Present: normal inspection, other (No edema or swelling of the neck). Absent: tenderness Respiratory exam: Present: normal lung sounds bilaterally. Absent: respiratory distress Cardiovascular Exam: Present: regular rate, normal rhythm GI/Abdominal exam: Present: soft. Absent: tenderness Extremities exam: Present: normal inspection Neurological exam: Present: alert Psychiatric exam: Present: normal affect, normal mood Skin exam: Present: normal color Course Vital Signs 10/04/19 10/04/19 12:24 12:26 Temperature 98.7 F Pulse Rate 78 Respiratory 16 16 Rate Blood Pressure 159/100 132/90 O2 Sat by Pulse 98 Oximetry Medical Decision Making - Medical Decision Making Patient reevaluated and is improved however not completely resolved. Patient updated on plan. Patient is not in the restaurant compromise however not feel comfortable with discharge of patient without hospital observation. Case was d iscussed in detail with Dr. Todd, who will admit covering for Dr. Wan. Disposition Clinical Impression: Angioedema Disposition: ADMITTED IP TO THIS HOSP Is patient prescribed a controlled substance at d/c from ED?: No Referrals: Luis Wan MD [Primary Care Provider] - 1-2 days Decision Time: 13:55
[2019-10-04] MEDS ORDERED: LORazepam 2 MG/ML INJ IV STA (12:56)
[2019-10-04] MEDS ORDERED: NALOXONE 0.4 MG/ML 1 ML VIAL IV PRN (13:55)
[2019-10-04 14:20] LABS: Basophils % (A) 0 %; Eosinophils # (A) 1.9 k/uL (0-0.7); Eosinophils % (A) 13 %; HCT 41.6 % (34.0-46.0); HGB 13.6 gm/dL (11.4-16.0); Lymphocytes % (A) 21 %; MCH 33.5 pg (25.0-35.0); MCHC 32.6 g/dL (31.0-37.0); MCV 102.7 fL (80.0-100.0); Macrocytosis Slight; Mean Platelet Volume 8.1; Monocytes # (A) 0.6 k/uL (0-1.0); Monocytes % (A) 4 %; Neutrophils # (A) 8.9 k/uL (1.3-7.7); Neutrophils % (A) 61 %; Platelet Count 443 k/uL (150-450); RBC 4.05 m/uL (3.80-5.40); RDW 13.1 % (11.5-15.5); WBC 14.5 k/uL (3.8-10.6)
[2019-10-04] MEDS: SODIUM CHLORIDE 0.9% 1,000 ML IV SCH (14:24)
[2019-10-04 14:29] LABS: African American GFR (CKD) >90 (>60 ml/min/1.73 sqM); Anion Gap 11 mmol/L; Blood Urea Nitrogen 14 mg/dL (7-17); Calcium 9.4 mg/dL (8.4-10.2); Carbon Dioxide 23 mmol/L (22-30); Chloride 106 mmol/L (98-107); Glucose 109 mg/dL (74-99); Non-African American GFR(CKD) 88 (>60 ml/min/1.73 sqM); Sodium 140 mmol/L (137-145)
[2019-10-04 14:30] LABS: Potassium 4.8 mmol/L (3.5-5.1)
[2019-10-04] MEDS ORDERED: diphenhydrAMINE 25 MG CAP PO PRN (14:58)
[2019-10-04] MEDS: diphenhydrAMINE 50 MG/ML 1 ML VIAL IVP SCH ×2 (17:53→23:46)
[2019-10-04] MEDS: methylPREDNISolone SOD SUCCI 125 MG/2 ML VIAL IV SCH ×2 (17:53→23:46)
[2019-10-04 20:09] LABS: Appearance,Urine Cloudy (Clear); Bilirubin,Urine Negative (Negative); Blood,Urine Moderate (Negative); Color,Urine Yellow; Glucose,Urine (UA) Negative (Negative); Ketones,Urine Negative (Negative); Leukocyte Esterase,Urine Trace (Negative); Nitrite,Urine Positive (Negative); PH, Urine 6.5 (5.0-8.0); Protein,Urine Trace (Negative); RBC,Urine 154 /hpf (0-5); Specific Gravity,Urine 1.017 (1.001-1.035); Sperm,Urine Few /hpf; Squamous Epithelial Cell,Urine 30 /hpf (0-4); Urobilinogen,Urine <2.0 mg/dL (<2.0); WBC,Urine 9 /hpf (0-5)
[2019-10-04] MEDS ORDERED: LACTULOSE 200 GM/300 ML (FROM 1/2 GAL JUG) PO SCH (21:00)
[2019-10-04] MEDS: FAMOTIDINE 20 MG/2 ML VIAL IV SCH (22:23)
[2019-10-04] MEDS: ATORVASTATIN 20 MG TAB PO SCH (22:23)
[2019-10-04] MEDS: LACTULOSE 20 GM/30 ML CUP PO SCH (22:24)
[2019-10-04] MEDS: METOPROLOL TARTRATE 12.5 MG TAB PO SCH (22:24)
[2019-10-04] MEDS: metFORMIN 500 MG TAB PO SCH (22:24)
[2019-10-04] MEDS ORDERED: LEVOFLOXACIN IVPB SCH (23:00)
[2019-10-04] MEDS ORDERED: WATER IVPB SCH (23:00)
[2019-10-04] MEDS ORDERED: DEXTROSE IVPB SCH (23:00)
[2019-10-04] MEDS ORDERED: PMX IVPB SCH (23:00)
--- NOTE | 2019-10-05 00:28 | P.HPIM ---
History of Present Illness This is a pleasant 74 years old female with past medical history of dementia, hyperlipidemia, hypertension, osteoarthritis, sleep apnea, diabetes mellitus, recurrent UTI. Was sent from [facility] because of tongue swelling, patient receives treatment in the emergency room included steroids, Benadryl and Pepcid, her tongue swelling is improved however ED attending did not feel comfortable sending the patient back to [facility] so I decided to admit her to the hospital for monitoring. Patient is poor historian and what ever question we asked her she just smiles and knots inverted as he is. She cannot come to [facility] and she does not follow commands however she looks with normal activities. Sitter at bedside for safety and patient was trying to get out of bed, the orientation is provided. Her airway looks patent and she has mild tongue swelling Patient is breathing quietly, no cough or dyspnea is noted, no abdominal pain or tenderness on examination Vitals stable, labs showed leukocytosis of 14.5 K, rest of labs were unremarkable including BMP, urinalysis is suspicious for infection Review of Systems n/a Past Medical History Past Medical History: Chest Pain / Angina, Dementia, Hyperlipidemia, Hypertension, Memory Impairment, Osteoarthritis (OA), Sleep Apnea/CPAP/BIPAP Additional Past Medical History / Comment(s): Frontal lobe impairment, confused most of the time, impulsive, NIDDM type II, UTIs, UTI with sepsis, protein calorie malnutrition, iron anemia, hypokalemia, vitamin D deficiency, constipation, diverticular disease, DDD, low back pain, occasional incontinence, ubaldo denied hx of asthma. History of Any Multi-Drug Resistant Organisms: None Reported Past Surgical History: Back Surgery Additional Past Surgical History / Comment(s): Colonoscopy Past Anesthesia/Blood Transfusion Reactions: No Reported Reaction Smoking Status: Former smoker - Past Family History Father Family Medical History: Cancer Additional Family Medical History / Comment(s): Ubaldo does not know type of cancer. Mother Additional Family Medical History / Comment(s): HEART DISEASE Medications and Allergies Home Medications Medication Instructions Recorded Confirmed Type Lactulose 10 gm PO BID@0900,2100 06/01/18 10/04/19 History Metoprolol Tartrate [Lopressor] 12.5 mg PO BID@0900,2100 08/19/10/04/19 H istory Atorvastatin [Lipitor] 20 mg PO HS@209910/04/19 10/04/19 History Famotidine 20 mg PO HS@2100 10/04/19 10/04/19 History Folic Acid 1 mg PO DAILY@0900 10/04/19 10/04/19 History buPROPion HCL [Wellbutrin XL] 150 mg PO DAILY@0900 10/04/19 10/04/19 History diphenhydrAMINE HCL [Benadryl] 25 mg PO Q6H PRN 10/04/19 10/04/19 History metFORMIN HCL [Glucophage] 500 mg PO BID@0900,2100 10/04/19 10/04/19 History Allergies Allergy/AdvReac Type Severity Reaction Status Date / Time aspirin Allergy Mild Nausea Verified 10/04/19 12:57 codeine Allergy Mild Nausea Verified 10/04/19 12:57 Penicillins Allergy Unknown Verified 10/04/19 12:57 cod Allergy Severe Unknown Uncoded 08/19/18 14:59 Physical Exam Vitals: Vital Signs Temp Pulse Pulse Resp BP BP Pulse Ox 10/04/19 16:00 81 16 10/04/19 15:00 98.6 F 81 16 136/80 95 10/04/19 12:26 78 16 132/90 98 10/04/19 12:24 98.7 F 16 159/100 Intake and Output 10/04/19 10/04/19 10/04/19 06:59 14:59 22:59 Other: Voiding Method Toilet Weight 99.79 kg 99.79 kg -GENERAL: The patient is alert but confused which looks like it is her baseline, however patient looks pleasant and smiling, not in any acute distress. Obese HEENT: Pupils are round and equally reacting to light. EOMI. No scleral icterus. No conjunctival pallor. Normocephalic, atraumatic. No pharyngeal erythema. No thyromegaly. CARDIOVASCULAR: S1 and S2 present. No murmurs, rubs, or gallops. PULMONARY: Chest is clear to auscultation, no wheezing or crackles. ABDOMEN: Soft, nontender, nondistended, normoactive bowel sounds. No palpable organomegaly. MUSCULOSKELETAL: No joint swelling or deformity. EXTREMITIES: No cyanosis, clubbing, or pedal edema. NEUROLOGICAL: Gross neurological examination did not reveal any focal deficits. SKIN: No rashes. No petechiae Results CBC & Chem 7: 10/04/19 12:43 10/04/19 12:43 Labs: Abnormal Lab Results - Last 24 Hours (Table) 10/04/19 10/04/19 Range/Units 12:43 12:43 WBC 14.5 H (3.8-10.6) k/uL MCV 102.7 H (80.0-100.0) fL Neutrophils # 8.9 H (1.3-7.7) k/uL Eosinophils # 1.9 H (0-0.7) k/uL Glucose 109 H (74-99) mg/dL Thrombosis Risk Factor Assmnt - Choose All That Apply Any of the Below Risk Factors Present?: Yes Each Factor Represents 1 point: Obesity (BMI >25) Other Risk Factors: Yes Each Risk Factor Represents 2 Points: Age 61-74 years Other congenital or acquired thrombophilia - If yes, enter type in comment: No Thrombosis Risk Factor Assessment Total Risk Factor Score: 3 Thrombosis Risk Factor Assessment Level: Moderate Risk Assessment and Plan Assessment: Tongue swelling, suspicious for angioedema Acute urinary tract infection Dementia Hypertension Hyperlipidemia Primary osteoarthritis Sleep apnea Diabetes mellitus The current UTI Plan: This is a pleasant 74 resulting female who presents with tongue swelling and UTI. She got steroids, we'll keep monitoring her tongue. Also she was started on Levaquin for UTI, her penicillin ALLERGY limits the number of antibiotics can be safely used. Follow-up urine culture Labs and medication were reviewed.. Continue same treatment. Continue with symptomatic treatment. Resume home medication. Monitor lytes and vitals. DVT and GI prophylaxis. Further recommendations of the clinical course of the patient DVT prophylaxis: Subcutaneous heparin GI Prophylaxis: Pepcid Prognosis is guarded
[2019-10-05] MEDS: MELATONIN 5 MG TABLET PO PRN ×2 (01:36→20:49)
[2019-10-05] MEDS: diphenhydrAMINE 50 MG/ML 1 ML VIAL IVP SCH (05:27)
[2019-10-05] MEDS: methylPREDNISolone SOD SUCCI 125 MG/2 ML VIAL IV SCH (05:27)
[2019-10-05] MEDS: SODIUM CHLORIDE 0.9% 1,000 ML IV SCH ×2 (05:28→23:21)
[2019-10-05 06:24] LABS: Basophils % (A) 0 %; Eosinophils # (A) 0.1 k/uL (0-0.7); Eosinophils % (A) 1 %; HCT 41.3 % (34.0-46.0); HGB 13.4 gm/dL (11.4-16.0); Lymphocytes # (A) 1.7 k/uL (1.0-4.8); Lymphocytes % (A) 16 %; MCH 33.4 pg (25.0-35.0); MCHC 32.5 g/dL (31.0-37.0); MCV 102.9 fL (80.0-100.0); Macrocytosis Slight; Mean Platelet Volume 7.9; Monocytes # (A) 0.2 k/uL (0-1.0); Monocytes % (A) 2 %; Neutrophils # (A) 8.9 k/uL (1.3-7.7); Neutrophils % (A) 82 %; Platelet Count 473 k/uL (150-450); RBC 4.01 m/uL (3.80-5.40); WBC 10.9 k/uL (3.8-10.6)
[2019-10-05 06:54] LABS: Glucose,Whole Blood 171 mg/dL (75-99)
[2019-10-05] MEDS: LACTULOSE 20 GM/30 ML CUP PO SCH ×2 (08:27→20:44)
[2019-10-05] MEDS: METOPROLOL TARTRATE 12.5 MG TAB PO SCH ×2 (08:27→20:44)
[2019-10-05] MEDS: FAMOTIDINE 20 MG/2 ML VIAL IV SCH (08:27)
[2019-10-05] MEDS: buPROPion XL 150 MG TAB.ER.24H PO SCH (08:27)
[2019-10-05] MEDS: HEPARIN SODIUM,PORCINE 5,000 UNIT/ML 1 ML VIAL SQ SCH ×2 (08:28→20:43)
[2019-10-05] MEDS: metFORMIN 500 MG TAB PO SCH ×2 (08:28→20:44)
[2019-10-05] MEDS ORDERED: LORazepam 0.5 MG TAB PO PRN (08:47)
[2019-10-05] MEDS ORDERED: LACTULOSE 20 GM/30 ML CUP PO SCH (09:00)
[2019-10-05] MEDS ORDERED: predniSONE 20 MG TAB PO SCH (11:00)
[2019-10-05 11:19] LABS: Glucose,Whole Blood 180 mg/dL (75-99)
--- NOTE | 2019-10-05 14:21 | P.PN ---
Subjective This is a pleasant 74 years old female with past medical history of dementia, hyperlipidemia, hypertension, osteoarthritis, sleep apnea, diabetes mellitus, recurrent UTI. Was sent from [facility] because of tongue swelling, patient receives treatment in the emergency room included steroids, Benadryl and Pepcid, her tongue swelling is improved however ED attending did not feel comfortable sending the patient back to [facility] so I decided to admit her to the hospital for monitoring. Patient is poor historian and what ever question we as ked her she just smiles and knots inverted as he is. She cannot come to [facility] and she does not follow commands however she looks with normal activities. Sitter at bedside for safety and patient was trying to get out of bed, the orientation is provided. Her airway looks patent and she has mild tongue swelling Patient is breathing quietly, no cough or dyspnea is noted, no abdominal pain or tenderness on examination Vitals stable, labs showed leukocytosis of 14.5 K, rest of labs were unremarkable including BMP, urinalysis is suspicious for infection 10/05/2019 Patient is getting agitation at times since last night, mostly related to her metabolic encephalopathy from her UTI, sitter at bedside, patient is on Benadryl and Ativan as needed. However patient is fully awake and looks pleasant and calm most of the time. No more tongue swelling. And switch some withdrawal to per oral prednisone with short taper upon discharge Leukocytosis is improving Continue with Rocephin and follow-up urine culture Review of system: N/a Active Medications Generic Name Dose Route Start Last Admin Trade Name Freq PRN Reason Stop Dose Admin Atorvastatin Calcium 20 mg 10/04/19 21:00 10/04/19 22:23 Lipitor PO 20 mg HS@2100 KOREY Administration Bupropion HCl 150 mg 10/05/19 09:00 10/05/19 08:27 Wellbutrin Xl PO 150 mg DAILY@0900 KOREY Administration Diphenhydramine HCl 25 mg 10/04/19 14:58 Benadryl PO Q6H PRN Allergy Symptoms Famotidine 20 mg 10/05/19 21:00 Pepcid PO Q12HR KOREY Heparin Sodium (Porcine) 5,000 unit 10/05/19 09:00 10/05/19 08:28 Heparin SQ 5,000 unit Q12HR KOREY Administration Sodium Chloride 1,000 mls @ 50 mls/hr 10/04/19 14:00 10/05/19 05:28 Saline 0.9% IV 50 mls/hr .Q20H KOREY Administration Lactulose 10 gm 10/04/19 22:00 10/05/19 08:27 Cephulac PO 10 gm BID@0900,2100 KOREY Administration Levofloxacin 500 mg 10/05/19 23:00 Levaquin PO 2300 KOREY Lorazepam 0.5 mg 10/05/19 08:47 Ativan PO Q6HR PRN Anxiety Melatonin 5 mg 10/05/19 01:29 10/05/19 01:36 Melatonin PO 5 mg HS PRN Administration Insomnia Metformin HCl 500 mg 10/04/19 21:00 10/05/19 08:28 Glucophage PO 500 mg BID@0900,2100 KOREY Administration Metoprolol Tartrate 12.5 mg 10/04/19 21:00 10/05/19 08:27 Lopressor PO 12.5 mg BID@0900,2100 KOREY Administration Naloxone HCl 0.2 mg 10/04/19 13:55 Narcan IV Q2M PRN Opioid Reversal Prednisone 40 mg 10/05/19 11:00 10/05/19 12:15 PO 40 mg DAILY KOREY Administration Objective - Vital Signs Vital signs: Vital Signs Temp 98.9 F 10/05/19 11:48 Pulse 98 10/05/19 11:48 Resp 18 10/05/19 11:48 BP 167/98 10/05/19 11:48 Pulse Ox 97 10/05/19 11:48 Intake & Output 10/04/19 10/05/19 10/05/19 18:59 06:59 18:59 Intake Total 360 1180 Balance 360 1180 Weight 99.79 kg Intake: Oral 360 1180 Other: Voiding Method Toilet Toilet # Voids 2 - Exam -GENERAL: The patient is alert but confused which looks like it is her baseline, however patient looks pleasant and smiling, not in any acute distress. Obese. Sitter at bedside HEENT: Pupils are round and equally reacting to light. EOMI. No scleral icterus. No conjunctival pallor. Normocephalic, atraumatic. No pharyngeal erythema. No thyromegaly. CARDIOVASCULAR: S1 and S2 present. No murmurs, rubs, or gallops. PULMONARY: Chest is clear to auscultation, no wheezing or crackles. ABDOMEN: Soft, nontender, nondistended, normoactive bowel sounds. No palpable organomegaly. MUSCULOSKELETAL: No joint swelling or deformity. EXTREMITIES: No cyanosis, clubbing, or pedal edema. NEUROLOGICAL: Gross neurological examination did not reveal any focal deficits. SKIN: No rashes. No petechiae - Labs CBC & Chem 7: 10/05/19 05:47 10/04/19 12:43 Labs: Abnormal Lab Results - Last 24 Hours (Table) 10/04/19 10/04/19 10/04/19 Range/Units 12:43 12:43 19:45 WBC 14.5 H (3.8-10.6) k/uL MCV 102.7 H (80.0-100.0) fL Plt Count (150-450) k/uL Neutrophils # 8.9 H (1.3-7.7) k/uL Eosinophils # 1.9 H (0-0.7) k/uL Glucose 109 H (74-99) mg/dL POC Glucose (mg/dL) (75-99) mg/dL Urine Appearance Cloudy H (Clear) Urine Protein Trace H (Negative) Urine Blood Moderate H (Negative) Urine Nitrite Positive H (Negative) Ur Leukocyte Esterase Trace H (Negative) Urine RBC 154 H (0-5) /hpf Urine WBC 9 H (0-5) /hpf Ur Squamous Epith Cells 30 H (0-4) /hpf Urine Sperm Few H (None) /hpf 10/05/19 10/05/19 10/05/19 Range/Units 05:47 06:52 11:16 WBC 10.9 H (3.8-10.6) k/uL MCV 102.9 H (80.0-100.0) fL Plt Count 473 H (150-450) k/uL Neutrophils # 8.9 H (1.3-7.7) k/uL Eosinophils # (0-0.7) k/uL Glucose (74-99) mg/dL POC Glucose (mg/dL) 171 H 180 H (75-99) mg/dL Urine Appearance (Clear) Urine Protein (Negative) Urine Blood (Negative) Urine Nitrite (Negative) Ur Leukocyte Esterase (Negative) Urine RBC (0-5) /hpf Urine WBC (0-5) /hpf Ur Squamous Epith Cells (0-4) /hpf Urine Sperm (None) /hpf Microbiology - Last 24 Hours (Table) 10/04/19 19:41 Urine Culture - Preliminary Urine,Voided Assessment and Plan Assessment: Tongue swelling, suspicious for angioedema, improving Acute urinary tract infection Dementia Hypertension Hyperlipidemia Primary osteoarthritis Sleep apnea Diabetes mellitus The current UTI Plan: This is a pleasant 74 resulting female who presents with tongue swelling and UTI. She got steroids, we'll keep monitoring her tongue. Also she was started on Levaquin for UTI, her penicillin ALLERGY limits the number of antibiotics can be safely used. Follow-up urine culture Labs and medication were reviewed.. Continue same treatment. Continue with symptomatic treatment. Resume home medication. Monitor lytes and vitals. DVT and GI prophylaxis. Further recommendations of the clinical course of the patient DVT prophylaxis: Subcutaneous heparin GI Prophylaxis: Pepcid Prognosis is guarded
[2019-10-05 17:05] LABS: Glucose,Whole Blood 183 mg/dL (75-99)
[2019-10-05 20:01] LABS: Glucose,Whole Blood 227 mg/dL (75-99)
[2019-10-05] MEDS: FAMOTIDINE 20 MG TAB PO SCH (20:43)
[2019-10-05] MEDS: ATORVASTATIN 20 MG TAB PO SCH (20:43)
[2019-10-05] MEDS ORDERED: MELATONIN 5 MG TABLET PO SCH (21:00)
[2019-10-05] MEDS: LEVOFLOXACIN 500 MG TAB PO SCH (23:19)
[2019-10-06 06:41] LABS: Basophils % (A) 0 %; Eosinophils # (A) 0.2 k/uL (0-0.7); Eosinophils % (A) 1 %; HCT 38.6 % (34.0-46.0); HGB 12.4 gm/dL (11.4-16.0); Lymphocytes # (A) 3.1 k/uL (1.0-4.8); Lymphocytes % (A) 16 %; MCH 33.2 pg (25.0-35.0); MCHC 32.1 g/dL (31.0-37.0); MCV 103.6 fL (80.0-100.0); Macrocytosis Slight; Monocytes # (A) 0.8 k/uL (0-1.0); Monocytes % (A) 4 %; Neutrophils # (A) 15.7 k/uL (1.3-7.7); Neutrophils % (A) 78 %; Platelet Count 478 k/uL (150-450); RBC 3.72 m/uL (3.80-5.40); RDW 13.2 % (11.5-15.5); WBC 20.1 k/uL (3.8-10.6)
[2019-10-06 07:06] LABS: Glucose,Whole Blood 114 mg/dL (75-99)
[2019-10-06] MEDS ORDERED: predniSONE 20 MG TAB PO SCH (09:00)
[2019-10-06] MEDS: buPROPion XL 150 MG TAB.ER.24H PO SCH (09:07)
[2019-10-06] MEDS: METOPROLOL TARTRATE 12.5 MG TAB PO SCH (09:07)
[2019-10-06] MEDS: metFORMIN 500 MG TAB PO SCH ×2 (09:07→21:48)
[2019-10-06] MEDS: HEPARIN SODIUM,PORCINE 5,000 UNIT/ML 1 ML VIAL SQ SCH ×2 (09:08→21:47)
[2019-10-06] MEDS: FAMOTIDINE 20 MG TAB PO SCH ×2 (09:08→21:48)
[2019-10-06] MEDS: LACTULOSE 20 GM/30 ML CUP PO SCH ×2 (09:08→21:47)
[2019-10-06] MEDS ORDERED: METOPROLOL TARTRATE 12.5 MG TAB PO STA (10:21)
[2019-10-06 11:47] LABS: Glucose,Whole Blood 127 mg/dL (75-99)
--- NOTE | 2019-10-06 11:52 | P.PN ---
Subjective This is a pleasant 74 years old female with past medical history of dementia, hyperlipidemia, hypertension, osteoarthritis, sleep apnea, diabetes mellitus, recurrent UTI. [facility] from [facility] because of tongue swelling, patient receives treatment in the emergency room included steroids, Benadryl and Pepcid, her tongue swelling is improved however ED attending did not feel comfortable sending the patient back to [facility] so I decided to admit her to the hospital for monitoring. Patient is poor historian and what ever question we as ked her she just smiles and knots inverted as he is. She cannot come to [facility] and she does not follow commands however she looks with normal activities. Sitter at bedside for safety and patient was trying to get out of bed, the orientation is provided. Her airway looks patent and she has mild tongue swelling Patient is breathing quietly, no cough or dyspnea is noted, no abdominal pain or tenderness on examination Vitals stable, labs showed leukocytosis of 14.5 K, rest of labs were unremarkable including BMP, urinalysis is suspicious for infection 10/05/2019 Patient is getting agitation at times since last night, mostly related to her metabolic encephalopathy from her UTI, sitter at bedside, patient is on Benadryl and Ativan as needed. However patient is fully awake and looks pleasant and calm most of the time. No more tongue swelling. And switch some withdrawal to per oral prednisone with short taper upon discharge Leukocytosis is improving Continue with Rocephin and follow-up urine culture 10/06/2019 Patient is more, sleepy today, however sitter at bedside remains for safety, patient at baseline confused and tried to get out of bed. Patient cannot come to [facility] and provide information due to her dementia. Vitals are stable, left showing worsening leukocytosis however she is on steroids which is tapered off, today she does prednisone 20 mg only and then stopped. WBCs 20 K. No more tongue swelling. He got to repeat urine analysis well urine culture is growing gram-negative bacilli and final result is pending. She remains on Levaquin for now pending final results of the culture and repeat testing. Patient states is from [facility] and they request and patient to be tested twice negative for covid before she was sent back however patient does not have respiratory symptoms suggesting Covid infection, she does not have upper respiratory symptoms, no dyspnea or cough and or chest pain. She is breathing quietly. She saturating 97% on room air. Discussed with staff and healthcare social worker on the case Review of system: N/a Active Medications Generic Name Dose Route Start Last Admin Trade Name Freq PRN Reason Stop Dose Admin Atorvastatin Calcium 20 mg 10/04/19 21:00 10/05/19 20:43 Lipitor PO 20 mg HS@2100 KOREY Administration Bupropion HCl 150 mg 10/05/19 09:00 10/06/19 09:07 Wellbutrin Xl PO 150 mg DAILY@0900 KOREY Administration Diphenhydramine HCl 25 mg 10/04/19 14:58 10/05/19 17:42 Benadryl PO 25 mg Q6H PRN Administration Allergy Symptoms Famotidine 20 mg 10/05/19 21:00 10/06/19 09:08 Pepcid PO 20 mg Q12HR KOREY Administration Heparin Sodium (Porcine) 5,000 unit 10/05/19 09:00 10/06/19 09:08 Heparin SQ Not Given Q12HR KOREY Sodium Chloride 1,000 mls @ 50 mls/hr 10/04/19 14:00 10/05/19 23:21 Saline 0.9% IV Not Given .Q20H KOREY Lactulose 10 gm 10/04/19 22:00 10/06/19 09:08 Cephulac PO 10 gm BID@0900,2100 KOREY Administration Levofloxacin 500 mg 10/05/19 23:00 10/05/19 23:19 Levaquin PO 500 mg 2300 KOREY Administration Lorazepam 0.5 mg 10/05/19 08:47 Ativan PO Q6HR PRN Anxiety Melatonin 5 mg 10/05/19 01:29 10/05/19 20:49 Melatonin PO 5 mg HS PRN Administration Insomnia Metformin HCl 500 mg 10/04/19 21:00 10/06/19 09:07 Glucophage PO 500 mg BID@0900,2100 KOREY Administration Metoprolol Tartrate 25 mg 10/06/19 21:00 Lopressor PO BID@0900,2100 KOREY Naloxone HCl 0.2 mg 10/04/19 13:55 Narcan IV Q2M PRN Opioid Reversal Objective - Vital Signs Vital signs: Vital Signs Temp 98.0 F 10/06/19 05:29 Pulse 71 10/06/19 05:29 Resp 16 10/06/19 05:29 BP 195/89 04/03/20 05:29 Pulse Ox 97 10/06/19 05:29 Intake & Output 10/05/19 10/06/19 10/06/19 18:59 06:59 18:59 Intake Total 240 Balance 240 Intake: Oral 240 Other: Voiding Method Toilet Toilet # Voids 3 2 - Exam -GENERAL: The patient is alert but confused which looks like it is her baseline, however patient looks pleasant and smiling, not in any acute distress. Obese. Sitter at bedside HEENT: Pupils are round and equally reacting to light. EOMI. No scleral icterus. No conjunctival pallor. Normocephalic, atraumatic. No pharyngeal erythema. No thyromegaly. CARDIOVASCULAR: S1 and S2 present. No murmurs, rubs, or gallops. PULMONARY: Chest is clear to auscultation, no wheezing or crackles. ABDOMEN: Soft, nontender, nondistended, normoactive bowel sounds. No palpable organomegaly. MUSCULOSKELETAL: No joint swelling or deformity. EXTREMITIES: No cyanosis, clubbing, or pedal edema. NEUROLOGICAL: Gross neurological examination did not reveal any focal deficits. SKIN: No rashes. No petechiae - Labs CBC & Chem 7: 10/06/19 05:56 10/04/19 12:43 Labs: Abnormal Lab Results - Last 24 Hours (Table) 10/05/19 10/05/19 10/06/19 Range/Units 17:00 19:59 05:56 WBC 20.1 H (3.8-10.6) k/uL RBC 3.72 L (3.80-5.40) m/uL MCV 103.6 H (80.0-100.0) fL Plt Count 478 H (150-450) k/uL Neutrophils # 15.7 H (1.3-7.7) k/uL POC Glucose (mg/dL) 183 H 227 H (75-99) mg/dL 10/06/19 Range/Units 07:02 WBC (3.8-10.6) k/uL RBC (3.80-5.40) m/uL MCV (80.0-100.0) fL Plt Count (150-450) k/uL Neutrophils # (1.3-7.7) k/uL POC Glucose (mg/dL) 114 H (75-99) mg/dL Microbiology - Last 24 Hours (Table) 10/04/19 19:41 Urine Culture - Preliminary Urine,Voided Gram Neg Bacilli Assessment and Plan Assessment: Tongue swelling, suspicious for angioedema, improved Acute urinary tract infection Dementia Hypertension Hyperlipidemia Primary osteoarthritis Sleep apnea Diabetes mellitus The current UTI Plan: This is a pleasant 74 resulting female who presents with tongue swelling and UTI. stopsteroids, we'll keep monitoring her tongue. Also she was started on Levaquin for UTI, her penicillin ALLERGY limits the number of antibiotics can be safely used. Follow-up urine culture Labs and medication were reviewed.. Continue same treatment. Continue with symptomatic treatment. Resume home medication. Monitor lytes and vitals. DVT and GI prophylaxis. Further recommendations of the clinical course of the patient DVT prophylaxis: Subcutaneous heparin GI Prophylaxis: Pepcid Prognosis is guarded
[2019-10-06 17:09] LABS: Glucose,Whole Blood 146 mg/dL (75-99)
[2019-10-06 17:19] LABS: Appearance,Urine Clear (Clear); Bacteria,Urine Moderate /hpf; Bilirubin,Urine Negative (Negative); Blood,Urine Small (Negative); Calcium Oxalate Crystals,Urine Rare /hpf; Color,Urine Yellow; Glucose,Urine (UA) Negative (Negative); Ketones,Urine Negative (Negative); Leukocyte Esterase,Urine Trace (Negative); Mucus,Urine Rare /hpf; Nitrite,Urine Negative (Negative); PH, Urine 5.5 (5.0-8.0); Protein,Urine Negative (Negative); RBC,Urine 3 /hpf (0-5); Specific Gravity,Urine 1.022 (1.001-1.035); Squamous Epithelial Cell,Urine 1 /hpf (0-4); Urobilinogen,Urine <2.0 mg/dL (<2.0); WBC,Urine 5 /hpf (0-5)
[2019-10-06] MEDS: SODIUM CHLORIDE 0.9% 1,000 ML IV SCH (19:20)
[2019-10-06 20:19] LABS: Glucose,Whole Blood 182 mg/dL (75-99)
[2019-10-06] MEDS: ATORVASTATIN 20 MG TAB PO SCH (21:48)
[2019-10-06] MEDS: METOPROLOL TARTRATE 25 MG TAB PO SCH (21:48)
[2019-10-06] MEDS: LEVOFLOXACIN 500 MG TAB PO SCH (22:00)
[2019-10-07 06:52] LABS: HCT 39.8 % (34.0-46.0); MCH 33.6 pg (25.0-35.0); MCHC 32.7 g/dL (31.0-37.0); MCV 102.7 fL (80.0-100.0); Macrocytosis Slight; Mean Platelet Volume 7.6; Platelet Count 415 k/uL (150-450); RBC 3.87 m/uL (3.80-5.40); RDW 13.1 % (11.5-15.5); WBC 13.7 k/uL (3.8-10.6)
[2019-10-07 06:59] LABS: Glucose,Whole Blood 100 mg/dL (75-99)
[2019-10-07] MEDS: LACTULOSE 20 GM/30 ML CUP PO SCH ×2 (08:10→20:46)
[2019-10-07] MEDS: FAMOTIDINE 20 MG TAB PO SCH ×2 (08:11→20:45)
[2019-10-07] MEDS: metFORMIN 500 MG TAB PO SCH ×2 (08:11→20:46)
[2019-10-07] MEDS: HEPARIN SODIUM,PORCINE 5,000 UNIT/ML 1 ML VIAL SQ SCH ×2 (08:11→20:45)
[2019-10-07] MEDS: METOPROLOL TARTRATE 25 MG TAB PO SCH ×2 (08:11→20:46)
[2019-10-07] MEDS: SODIUM CHLORIDE 0.9% 1,000 ML IV SCH (08:12)
[2019-10-07] MEDS: buPROPion XL 150 MG TAB.ER.24H PO SCH (08:12)
[2019-10-07 11:20] LABS: Eosinophils # (M) 0.14 k/uL (0-0.7); Lymphocytes # (M) 5.34 k/uL (1.0-4.8); Monocytes # (M) 0.69 k/uL (0-1.0); Neutrophils # (M) 7.54 k/uL (1.3-7.7); Neutrophils % (M) 55 %; Nucleated Red Blood Cells 0 /100 WBC (0-0); Total Cells Counted 100
--- NOTE | 2019-10-07 11:44 | P.PN ---
Subjective This is a pleasant 74 years old female with past medical history of dementia, hyperlipidemia, hypertension, osteoarthritis, sleep apnea, diabetes mellitus, recurrent UTI. Was [facility] from [facility] because of tongue swelling, patient receives treatment in the emergency room included steroids, Benadryl and Pepcid, her tongue swelling is improved however ED attending did not feel comfortable sending the patient back to [facility] so I decided to admit her to the hospital for monitoring. Patient is poor historian and what ever question we as ked her she just smiles and knots inverted as he is. She cannot come to [facility] and she does not follow commands however she looks with normal activities. Sitter at bedside for safety and patient was trying to get out of bed, the orientation is provided. Her airway looks patent and she has mild tongue swelling Patient is breathing quietly, no cough or dyspnea is noted, no abdominal pain or tenderness on examination Vitals stable, labs showed leukocytosis of 14.5 K, rest of labs were unremarkable including BMP, urinalysis is suspicious for infection 10/05/2019 Patient is getting agitation at times since last night, mostly related to her metabolic encephalopathy from her UTI, sitter at bedside, patient is on Benadryl and Ativan as needed. However patient is fully awake and looks pleasant and calm most of the time. No more tongue swelling. And switch some withdrawal to per oral prednisone with short taper upon discharge Leukocytosis is improving Continue with Rocephin and follow-up urine culture 10/06/2019 Patient is more, sleepy today, however sitter at bedside remains for safety, patient at baseline confused and tried to get out of bed. Patient cannot come to [facility] and provide information due to her dementia. Vitals are stable, left showing worsening leukocytosis however she is on steroids which is tapered off, today she does prednisone 20 mg only and then stopped. WBCs 20 K. No more tongue swelling. He got to repeat urine analysis well urine culture is growing gram-negative bacilli and final result is pending. She remains on Levaquin for now pending final results of the culture and repeat testing. Patient states is from [facility] and they request and patient to be tested twice negative for covid before she was sent back however patient does not have respiratory symptoms suggesting Covid infection, she does not have upper respiratory symptoms, no dyspnea or cough and or chest pain. She is breathing quietly. She saturating 97% on room air. Discussed with staff and case management social worker on the case 10/07/19 Patient is fully awake and oriented, she looks comfortable and asymptomatic. Vitals and labs are stable. Her urine culture is growing E. coli which is s ensitive to Rocephin and ciprofloxacin, and Levaquin. Continue with Levaquin and monitor WBC which is trending down to 13.1 K Patient is medically stable for discharge, pending placement Objective - Vital Signs Vital signs: Vital Signs Temp 98.6 F 10/07/19 04:59 Pulse 62 10/07/19 04:59 Resp 16 10/07/19 04:59 BP 158/78 10/07/19 04:59 Pulse Ox 97 10/07/19 04:59 Intake & Output 10/06/19 10/07/19 10/07/19 18:59 06:59 18:59 Intake Total 240 900 Balance 240 900 Intake: Oral 240 900 Other: Voiding Method Toilet Toilet Toilet Diaper Diaper # Voids 2 3 # Bowel Movements 2 1 - Exam -GENERAL: The patient is alert but confused which looks like it is her baseline, however patient looks pleasant and smiling, not in any acute distress. Obese. Sitter at bedside HEENT: Pupils are round and equally reacting to light. EOMI. No scleral icterus. No conjunctival pallor. Normocephalic, atraumatic. No pharyngeal erythema. No thyromegaly. CARDIOVASCULAR: S1 and S2 present. No murmurs, rubs, or gallops. PULMONARY: Chest is clear to auscultation, no wheezing or crackles. ABDOMEN: Soft, nontender, nondistended, normoactive bowel sounds. No palpable organomegaly. MUSCULOSKELETAL: No joint swelling or deformity. EXTREMITIES: No cyanosis, clubbing, or pedal edema. NEUROLOGICAL: Gross neurological examination did not reveal any focal deficits. SKIN: No rashes. No petechiae - Labs CBC & Chem 7: 10/07/19 06:29 10/04/19 12:43 Labs: Abnormal Lab Results - Last 24 Hours (Table) 10/06/19 10/06/19 10/06/19 Range/Units 11:37 17:00 17:06 WBC (3.8-10.6) k/uL MCV (80.0-100.0) fL Lymphocytes # (Manual) (1.0-4.8) k/uL POC Glucose (mg/dL) 127 H 146 H (75-99) mg/dL Urine Blood Small H (Negative) Ur Leukocyte Esterase Trace H (Negative) Calcium Oxalate Crystal Rare H (None) /hpf Urine Bacteria Moderate H (None) /hpf Urine Mucus Rare H (None) /hpf 10/06/19 10/07/19 10/07/19 Range/Units 20:17 06:29 06:54 WBC 13.7 H (3.8-10.6) k/uL MCV 102.7 H (80.0-100.0) fL Lymphocytes # (Manual) 5.34 H (1.0-4.8) k/uL POC Glucose (mg/dL) 182 H 100 H (75-99) mg/dL Urine Blood (Negative) Ur Leukocyte Esterase (Negative) Calcium Oxalate Crystal (None) /hpf Urine Bacteria (None) /hpf Urine Mucus (None) /hpf Microbiology - Last 24 Hours (Table) 10/04/19 19:41 Urine Culture - Final Urine,Voided Escherichia coli Assessment and Plan Assessment: Tongue swelling, suspicious for angioedema, improved Acute urinary tract infection Dementia Hypertension Hyperlipidemia Primary osteoarthritis Sleep apnea Diabetes mellitus The current UTI Plan: This is a pleasant 74 resulting female who presents with tongue swelling and UTI. stopsteroids, we'll keep monitoring her tongue. Also she was started on Levaquin for UTI, her penicillin ALLERGY limits the number of antibiotics can be safely used. Labs and medication were reviewed.. Continue same treatment. Continue with symptomatic treatment. Resume home medication. Monitor lytes and vitals. DVT and GI prophylaxis. Further recommendations of the clinical course of the patient DVT prophylaxis: Subcutaneous heparin GI Prophylaxis: Pepcid Patient is medically stable for discharge, pending placement
[2019-10-07 12:00] LABS: Glucose,Whole Blood 121 mg/dL (75-99)
[2019-10-07 17:02] LABS: Glucose,Whole Blood 102 mg/dL (75-99)
[2019-10-07 20:28] LABS: Glucose,Whole Blood 117 mg/dL (75-99)
[2019-10-07] MEDS: ATORVASTATIN 20 MG TAB PO SCH (20:45)
[2019-10-07] MEDS: MELATONIN 5 MG TABLET PO PRN (20:46)
[2019-10-07] MEDS: LEVOFLOXACIN 500 MG TAB PO SCH (22:06)
[2019-10-08 06:55] LABS: Glucose,Whole Blood 117 mg/dL (75-99)
[2019-10-08] MEDS: METOPROLOL TARTRATE 25 MG TAB PO SCH ×2 (10:32→20:01)
[2019-10-08] MEDS: FAMOTIDINE 20 MG TAB PO SCH ×2 (10:33→20:01)
[2019-10-08] MEDS: metFORMIN 500 MG TAB PO SCH ×2 (10:33→20:01)
[2019-10-08] MEDS: HEPARIN SODIUM,PORCINE 5,000 UNIT/ML 1 ML VIAL SQ SCH ×2 (10:33→20:01)
[2019-10-08] MEDS: buPROPion XL 150 MG TAB.ER.24H PO SCH (10:33)
[2019-10-08] MEDS: LACTULOSE 20 GM/30 ML CUP PO SCH ×2 (10:34→20:01)
[2019-10-08 11:46] LABS: Glucose,Whole Blood 125 mg/dL (75-99)
--- NOTE | 2019-10-08 13:00 | P.PN ---
Subjective This is a pleasant 74 years old female with past medical history of dementia, hyperlipidemia, hypertension, osteoarthritis, sleep apnea, diabetes mellitus, recurrent UTI. [facility] because of [facility] swelling, patient receives treatment in the emergency room included steroids, Benadryl and Pepcid, her tongue swelling is improved however ED attending did not feel comfortable sending the patient back to [facility] so I decided to admit her to the hospital for monitoring. Patient is poor historian and what ever question we as ked her she just smiles and knots inverted as he is. She cannot come to [facility] and she does not follow commands however she looks with normal activities. Sitter at bedside for safety and patient was trying to get out of bed, the orientation is provided. Her airway looks patent and she has mild tongue swelling Patient is breathing quietly, no cough or dyspnea is noted, no abdominal pain or tenderness on examination Vitals stable, labs showed leukocytosis of 14.5 K, rest of labs were unremarkable including BMP, urinalysis is suspicious for infection 10/05/2019 Patient is getting agitation at times since last night, mostly related to her metabolic encephalopathy from her UTI, sitter at bedside, patient is on Benadryl and Ativan as needed. However patient is fully awake and looks pleasant and calm most of the time. No more tongue swelling. And switch some withdrawal to per oral prednisone with short taper upon discharge Leukocytosis is improving Continue with Rocephin and follow-up urine culture 10/06/2019 Patient is more, sleepy today, however sitter at bedside remains for safety, patient at baseline confused and tried to get out of bed. Patient cannot come to [facility] and provide information due to her dementia. Vitals are stable, left showing worsening leukocytosis however she is on steroids which is tapered off, today she does prednisone 20 mg only and then stopped. WBCs 20 K. No more tongue swelling. He got to repeat urine analysis well urine culture is growing gram-negative bacilli and final result is pending. She remains on Levaquin for now pending final results of the culture and repeat testing. Patient states is from [facility] and they request and patient to be tested twice negative for covid before she was sent back however patient does not have respiratory symptoms suggesting Covid infection, she does not have upper respiratory symptoms, no dyspnea or cough and or chest pain. She is breathing quietly. She saturating 97% on room air. Discussed with staff and psych social worker on the case 10/07/19 Patient is fully awake and oriented, she looks comfortable and asymptomatic. Vitals and labs are stable. Her urine culture is growing E. coli which is s ensitive to Rocephin and ciprofloxacin, and Levaquin. Continue with Levaquin and monitor WBC which is trending down to 13.1 K Patient is medically stable for discharge, pending placement 10/08/2019 Patient is clinically stable, she is afebrile, no other new complaints. No sitter at bedside No labs from today Patient is medically stable pending placement Objective - Vital Signs Vital signs: Vital Signs Temp 98.0 F 10/08/19 11:40 Pulse 71 10/08/19 11:40 Resp 16 10/08/19 11:40 BP 163/90 10/08/19 11:40 Pulse Ox 96 10/08/19 11:40 Intake & Output 10/07/19 10/08/19 10/08/19 18:59 06:59 18:59 Intake Total 900 Balance 900 Intake: Oral 900 Other: Voiding Method Toilet Toilet Diaper Diaper # Voids 3 1 1 # Bowel Movements 1 - Exam -GENERAL: The patient is alert but confused which looks like it is her baseline, however patient looks pleasant and smiling, not in any acute distress. Obese. Sitter at bedside HEENT: Pupils are round and equally reacting to light. EOMI. No scleral icterus. No conjunctival pallor. Normocephalic, atraumatic. No pharyngeal erythema. No thyromegaly. CARDIOVASCULAR: S1 and S2 present. No murmurs, rubs, or gallops. PULMONARY: Chest is clear to auscultation, no wheezing or crackles. ABDOMEN: Soft, nontender, nondistended, normoactive bowel sounds. No palpable organomegaly. MUSCULOSKELETAL: No joint swelling or deformity. EXTREMITIES: No cyanosis, clubbing, or pedal edema. NEUROLOGICAL: Gross neurological examination did not reveal any focal deficits. SKIN: No rashes. No petechiae - Labs CBC & Chem 7: 10/07/19 06:29 10/04/19 12:43 Labs: Abnormal Lab Results - Last 24 Hours (Table) 10/07/19 10/07/19 10/08/19 Range/Units 16:59 20:27 06:53 POC Glucose (mg/dL) 102 H 117 H 117 H (75-99) mg/dL 10/08/19 Range/Units 11:43 POC Glucose (mg/dL) 125 H (75-99) mg/dL Microbiology - Last 24 Hours (Table) 10/04/19 19:41 Urine Culture - Final Urine,Voided Escherichia coli Assessment and Plan Assessment: Tongue swelling, suspicious for angioedema, improved Acute urinary tract infection Dementia Hypertension Hyperlipidemia Primary osteoarthritis Sleep apnea Diabetes mellitus The current UTI Plan: This is a pleasant 74 resulting female who presents with tongue swelling and UTI. stopsteroids, we'll keep monitoring her tongue. Also she was started on Levaquin for UTI, her penicillin ALLERGY limits the number of antibiotics can be safely used. Labs and medication were reviewed.. Continue same treatment. Continue with symptomatic treatment. Resume home medication. Monitor lytes and vitals. DVT and GI prophylaxis. Further recommendations of the clinical course of the patient DVT prophylaxis: Subcutaneous heparin GI Prophylaxis: Pepcid Patient is medically stable for discharge, pending placement
[2019-10-08 17:03] LABS: Glucose,Whole Blood 127 mg/dL (75-99)
[2019-10-08] MEDS: MELATONIN 5 MG TABLET PO PRN (20:01)
[2019-10-08] MEDS: ATORVASTATIN 20 MG TAB PO SCH (20:01)
[2019-10-08 20:14] LABS: Glucose,Whole Blood 126 mg/dL (75-99)
[2019-10-08] MEDS: LEVOFLOXACIN 500 MG TAB PO SCH (23:31)
[2019-10-09 06:43] LABS: Basophils % (A) 0 %; Eosinophils # (A) 1.1 k/uL (0-0.7); Eosinophils % (A) 7 %; HCT 44.8 % (34.0-46.0); HGB 14.8 gm/dL (11.4-16.0); Lymphocytes # (A) 4.2 k/uL (1.0-4.8); Lymphocytes % (A) 26 %; MCH 33.5 pg (25.0-35.0); MCHC 33.1 g/dL (31.0-37.0); MCV 101.2 fL (80.0-100.0); Mean Platelet Volume 7.8; Monocytes # (A) 0.9 k/uL (0-1.0); Monocytes % (A) 6 %; Neutrophils # (A) 9.5 k/uL (1.3-7.7); Neutrophils % (A) 60 %; Platelet Count 497 k/uL (150-450); RBC 4.43 m/uL (3.80-5.40); WBC 15.9 k/uL (3.8-10.6)
[2019-10-09 06:57] LABS: Glucose,Whole Blood 127 mg/dL (75-99)
[2019-10-09] MEDS: LEVOFLOXACIN 500 MG TAB PO SCH (10:21)
[2019-10-09] MEDS: buPROPion XL 150 MG TAB.ER.24H PO SCH (10:21)
[2019-10-09] MEDS: FAMOTIDINE 20 MG TAB PO SCH ×2 (10:21→20:43)
[2019-10-09] MEDS: HEPARIN SODIUM,PORCINE 5,000 UNIT/ML 1 ML VIAL SQ SCH ×2 (10:21→20:43)
[2019-10-09] MEDS: LACTULOSE 20 GM/30 ML CUP PO SCH ×2 (10:21→20:43)
[2019-10-09] MEDS: METOPROLOL TARTRATE 25 MG TAB PO SCH ×2 (10:22→20:43)
[2019-10-09] MEDS: metFORMIN 500 MG TAB PO SCH ×2 (10:22→20:43)
[2019-10-09 11:09] LABS: Glucose,Whole Blood 135 mg/dL (75-99)
--- NOTE | 2019-10-09 14:41 | DS ---
DISCHARGE SUMMARY DATE OF ADMISSION: 10/04/2019 DATE OF DISCHARGE: 10/09/2019 FINAL DIAGNOSES: 1. Acute allergic reaction with angioedema cause unknown. 2. Acute urinary tract infection from cystitis from E coli. 3. Severe cognitive impairment from likely late onset Alzheimer's dementia. 4. Hyperlipidemia. 5. Essential hypertension. 6. Primary osteoarthritis. 7. Diabetes mellitus type 2 on oral hypoglycemic. 8. Anxiety, depression, not otherwise specified. 9. Obesity; body mass index 35.5. 10.Colonic diverticulosis asymptomatic. 11.Chronic urinary incontinence. HOSPITAL COURSE: This patient presented with tongue swelling to the ER. It was not felt to be safe to let her go back. She was admitted for the same. Patient UTI came back positive for E coli, treated for the same. The patient is tolerating a diet. The patient has no respiratory symptoms. No cough. No shortness of breath. Pulse ox is good. Today, there was a concern from the [facility] about the patient returning with negative COVID testing. I did call the medical record to Dr. Bernardo Watson informed me that this state he did have called [facility] to take the patient back. The patient has no respiratory symptoms at all. She has been in a private room in the hospital itself and has not been in contact with any other patient in the hospital. Otherwise, patient is pleasantly confused I also discussed with the urban planner. Discussion and discharge planning more than 35 minutes. PHYSICAL EXAMINATION: Temperature 98.8, pulse 78, respiration 16, blood pressure 155/90, pulse ox 95% on room air. Sitting up, comfortable. LUNGS: Fair air entry. CARDIOVASCULAR: First and second sounds are normal. PSYCH: Patient is a talking, but often times does not make sense. INVESTIGATIONS: White count 15.9, hemoglobin 14.8, platelets 197. UA positive. Urine culture positive for E coli. Creatinine 0.68. DISCHARGE MEDICATIONS: 1. Lactulose 10 g p.o. b.i.d. 2. Lipitor 20 mg q.h.s. 3. Pepcid 20 mg q.h.s.. 4. Folic acid 1 mg daily. 5. Wellbutrin XL 150 mg daily. 6. Benadryl 25 mg q.6 p.r.n. 7. Metformin 500 mg b.i.d. 8. Levaquin 500 mg daily for 3 days. 9. Melatonin 5 mg q.h.s. p.r.n. 10.Lopressor 25 mg b.i.d. DISPOSITION: [facility]. FOLLOWUP: Follow up with Dr. Wan at the [facility]. VIJAY / NATO: [id number] /
[2019-10-09 16:58] LABS: Glucose,Whole Blood 116 mg/dL (75-99)
[2019-10-09 20:07] LABS: Glucose,Whole Blood 133 mg/dL (75-99)
[2019-10-09] MEDS: ATORVASTATIN 20 MG TAB PO SCH (20:43)
--- NOTE | 2019-10-09 22:03 | P.PN ---
Progress Note - Text Progress Note Date: 10/09/19 Presenting complaint: Tongue swelling Interval history: This patient presented with non-defined ALLERGIC reaction with tongue swelling. Was treated responded well. Also found to have UTI. Patient is baseline confused. Has had no respiratory symptoms. Today-sitting up in bed. Comfortable. Denies any respiratory symptoms. Informed with the ECF liaison and the social media community manager to the ECF is requiring a COVID negative testing. Again patient has no respiratory symptoms. Progress review of systems unable to be done as patient is pleasantly confused Active Medications Atorvastatin Calcium (Lipitor) 20 mg PO HS@2100 [facility] Last Admin: 10/09/19 20:43 Dose: 20 mg Documented by: Bupropion HCl (Wellbutrin Xl) 150 mg PO DAILY@0900 [facility] Last Admin: 10/09/19 10:21 Dose: 150 mg Documented by: Diphenhydramine HCl (Benadryl) 25 mg PO Q6H PRN PRN Reason: Allergy Symptoms Last Admin: 10/05/19 17:42 Dose: 25 mg Documented by: Famotidine (Pepcid) 20 mg PO Q12HR [facility] Last Admin: 10/09/19 20:43 Dose: 20 mg Documented by: Heparin Sodium (Porcine) (Heparin) 5,000 unit SQ Q12HR [facility] Last Admin: 10/09/19 20:43 Dose: 5,000 unit Documented by: Lactulose (Cephulac) 10 gm PO BID@0900,2099 [facility] Last Admin: 10/09/19 20:43 Dose: 10 gm Documented by: Levofloxacin (Levaquin) 500 mg PO DAILY [facility] Last Admin: 10/09/19 10:21 Dose: 500 mg Documented by: Lorazepam (Ativan) 0.5 mg PO Q6HR PRN PRN Reason: Anxiety Melatonin (Melatonin) 5 mg PO HS PRN PRN Reason: Insomnia Last Admin: 10/08/19 20:01 Dose: 5 mg Documented by: Metformin HCl (Glucophage) 500 mg PO BID@0900,2099 [facility] Last Admin: 10/09/19 20:43 Dose: 500 mg Documented by: Metoprolol Tartrate (Lopressor) 25 mg PO BID@0900,2100 [facility] Last Admin: 10/09/19 20:43 Dose: 25 mg Documented by: Naloxone HCl (Narcan) 0.2 mg IV Q2M PRN PRN Reason: Opioid Reversal On examination: VITAL SIGNS: 98.8, 78, 16, 155/90, 95% on room air GENERAL APPEARANCE: Sitting over the bed, comfortable HEENT: Normal external appearance of nose and ear. Oral cavity normal EYES: Pupils equal. Conjunctiva normal. NECK: JVD not raised. Mass not palpable. RESPIRATORY: Respiratory effort normal. Lungs clear to auscultation. CARDIOVASCULAR: First and second sounds normal. No edema. ABDOMEN: Soft. Liver and spleen not palpable. No tenderness. No mass palpable. PSYCHIATRY: Pleasantly confused Investigations: White count 15.9 hemoglobin 14.8 platelets 197 UA positive Urine culture-E. coli Creatinine 0.68 Assessment: -Acute ALLERGIC reaction with angioedema cause unknown -Acute UTI from cystitis from E. coli -Severe cognitive impairment likely from late onset Alzheimer's dementia and frontal lobe dementia -Hyperlipidemia -Essential hypertension -Primary osteoarthritis -Diabetes with his type II on oral hypoglycemic -Anxiety depression otherwise specified -Obesity BMI 35.5 g -colonic diverticulosis asymptomatic -Chronic urinary incontinence Plan: On clinical grounds patient has no respiratory symptoms. She was admitted here for acute ALLERGIC reaction and a UTI. She is not hypoxic nor tachycardic. I do not see a need for COVID testing. Did discuss this with the social media community manager. Also spoke to Dr. Bernardo robison Dir. about the same. Even if was to come back positive patient is asymptomatic. Treatment will still include social distancing and other parameters use for possible infectious to other. Had completed the discharge. Later was informed that patient has been held back due to administrative intervention. More than 40 minutes was spent including 25 minutes of discussion.
[2019-10-10 07:01] LABS: Glucose,Whole Blood 127 mg/dL (75-99)
[2019-10-10] MEDS: HEPARIN SODIUM,PORCINE 5,000 UNIT/ML 1 ML VIAL SQ SCH ×2 (08:04→21:08)
[2019-10-10] MEDS: LACTULOSE 20 GM/30 ML CUP PO SCH ×2 (08:04→21:08)
[2019-10-10] MEDS: LEVOFLOXACIN 500 MG TAB PO SCH (08:05)
[2019-10-10] MEDS: METOPROLOL TARTRATE 25 MG TAB PO SCH ×2 (08:05→21:08)
[2019-10-10] MEDS: metFORMIN 500 MG TAB PO SCH ×2 (08:05→21:08)
[2019-10-10] MEDS: FAMOTIDINE 20 MG TAB PO SCH ×2 (08:05→21:08)
[2019-10-10] MEDS: buPROPion XL 150 MG TAB.ER.24H PO SCH (08:14)
[2019-10-10 11:35] LABS: Glucose,Whole Blood 128 mg/dL (75-99)
[2019-10-10 20:13] LABS: Glucose,Whole Blood 130 mg/dL (75-99)
[2019-10-10] MEDS: ATORVASTATIN 20 MG TAB PO SCH (21:08)
--- NOTE | 2019-10-10 21:51 | P.PN ---
Progress Note - Text Progress Note Date: 10/10/19 Presenting complaint: Tongue swelling Interval history: This patient presented with non-defined ALLERGIC reaction with tongue swelling. Was treated responded well. Also found to have UTI. Patient is baseline confused. Has had no respiratory symptoms. Today-laying in bed. Comfortable. Tolerating a diet. COVID 19 sample sent yesterday was not good. Repeated today Progress review of systems unable to be done as patient is pleasantly confused Active Medications Atorvastatin Calcium (Lipitor) 20 mg PO HS@2100 [facility] Last Admin: 10/10/19 21:08 Dose: 20 mg Documented by: Bupropion HCl (Wellbutrin Xl) 150 mg PO DAILY@0900 [facility] Last Admin: 10/10/19 08:14 Dose: 150 mg Documented by: Diphenhydramine HCl (Benadryl) 25 mg PO Q6H PRN PRN Reason: Allergy Symptoms Last Admin: 10/05/19 17:42 Dose: 25 mg Documented by: Famotidine (Pepcid) 20 mg PO Q12HR [facility] Last Admin: 10/10/19 21:08 Dose: 20 mg Documented by: Heparin Sodium (Porcine) (Heparin) 5,000 unit SQ Q12HR [facility] Last Admin: 10/10/19 21:08 Dose: 5,000 unit Documented by: Lactulose (Cephulac) 10 gm PO BID@0900,2099 [facility] Last Admin: 10/10/19 21:08 Dose: 10 gm Documented by: Levofloxacin (Levaquin) 500 mg PO DAILY [facility] Last Admin: 10/10/19 08:05 Dose: 500 mg Documented by: Lorazepam (Ativan) 0.5 mg PO Q6HR PRN PRN Reason: Anxiety Melatonin (Melatonin) 5 mg PO HS PRN PRN Reason: Insomnia Last Admin: 10/08/19 20:01 Dose: 5 mg Documented by: Metformin HCl (Glucophage) 500 mg PO BID@0900,2099 [facility] Last Admin: 10/10/19 21:08 Dose: 500 mg Documented by: Metoprolol Tartrate (Lopressor) 25 mg PO BID@0900,2100 [facility] Last Admin: 10/10/19 21:08 Dose: 25 mg Documented by: Naloxone HCl (Narcan) 0.2 mg IV Q2M PRN PRN Reason: Opioid Reversal On examination: VITAL SIGNS: 98.2, 70, 17, 111/65, 98% room air GENERAL APPEARANCE: Laying in bed comfortable HEENT: Normal external appearance of nose and ear. Oral cavity normal EYES: Pupils equal. Conjunctiva normal. NECK: JVD not raised. Mass not palpable. RESPIRATORY: Respiratory effort normal. Lungs clear to auscultation. CARDIOVASCULAR: First and second sounds normal. No edema. ABDOMEN: Soft. Liver and spleen not palpable. No tenderness. No mass palpable. PSYCHIATRY: Pleasantly confused Investigations: White count 15.9 hemoglobin 14.8 platelets 197 UA positive Urine culture-E. coli Creatinine 0.68 Assessment: -Acute ALLERGIC reaction with angioedema cause unknown -Acute UTI from cystitis from E. coli -Severe cognitive impairment likely from late onset Alzheimer's dementia and frontal lobe dementia -Hyperlipidemia -Essential hypertension -Primary osteoarthritis -Diabetes with his type II on oral hypoglycemic -Anxiety depression otherwise specified -Obesity BMI 35.5 g -colonic diverticulosis asymptomatic -Chronic urinary incontinence Plan: Continue current medication treatment plan. Awaiting COVID 19 results. To be negative before patient will be taking back to the ECF.
[2019-10-11 07:05] LABS: Glucose,Whole Blood 151 mg/dL (75-99)
[2019-10-11] MEDS: LACTULOSE 20 GM/30 ML CUP PO SCH (08:47)
[2019-10-11] MEDS: buPROPion XL 150 MG TAB.ER.24H PO SCH (08:47)
[2019-10-11] MEDS: METOPROLOL TARTRATE 25 MG TAB PO SCH (08:47)
[2019-10-11] MEDS: LEVOFLOXACIN 500 MG TAB PO SCH (08:47)
[2019-10-11] MEDS: FAMOTIDINE 20 MG TAB PO SCH (08:47)
[2019-10-11] MEDS: metFORMIN 500 MG TAB PO SCH (08:47)
[2019-10-11] MEDS: HEPARIN SODIUM,PORCINE 5,000 UNIT/ML 1 ML VIAL SQ SCH (08:47)
[2019-10-11 11:33] LABS: Glucose,Whole Blood 123 mg/dL (75-99)
[2019-10-11 11:44] VITALS: BP 152/93; PULSE 81; RESP 18; TEMP 98.7
--- NOTE | 2019-10-11 13:50 | P.DS ---
Providers Date of admission: 10/06/19 08:52 Expected date of discharge: 10/11/19 Attending physician: Fco De La Rosa [facility]: Presenting complaint: Tongue swelling Interval history: This patient presented with non-defined ALLERGIC reaction with tongue swelling. Was treated responded well. Also found to have UTI. Patient is baseline confused. Has had no respiratory symptoms. Today-no new issues. Comfortable in bed. Watching TV. Baseline confused. COVID-19 came back negative On examination: VITAL SIGNS: 98.7, 81, 18, 152/93, 93% on room air GENERAL APPEARANCE: Laying in bed comfortable HEENT: Normal external appearance of nose and ear. Oral cavity normal EYES: Pupils equal. Conjunctiva normal. NECK: JVD not raised. Mass not palpable. RESPIRATORY: Respiratory effort normal. Lungs clear to auscultation. CARDIOVASCULAR: First and second sounds normal. No edema. ABDOMEN: Soft. Liver and spleen not palpable. No tenderness. No mass palpable. PSYCHIATRY: Pleasantly confused Investigations: White count 15.9 hemoglobin 14.8 platelets 197 UA positive Urine culture-E. coli Creatinine 0.68 Coronavirus-PCR negative Assessment: -Acute ALLERGIC reaction with angioedema cause unknown -Acute UTI from cystitis from E. coli -Severe cognitive impairment likely from late onset Alzheimer's dementia and frontal lobe dementia -Hyperlipidemia -Essential hypertension -Primary osteoarthritis -Diabetes with his type II on oral hypoglycemic -Anxiety depression otherwise specified -Obesity BMI 35.5 -colonic diverticulosis asymptomatic -Chronic urinary incontinence -Coronavirus-PCR negative [facility]position: [facility] Patient Condition at Discharge: Stable Plan - Discharge Summary Discharge Rx Participant: No New Discharge Prescriptions: New Melatonin 5 mg PO HS PRN tablet PRN Reason: Insomnia Levofloxacin [Levaquin] 500 mg PO DAILY 1 Days #1 tab Continue Lactulose 10 gm PO BID@0900,2100 diphenhydrAMINE HCL [Benadryl] 25 mg PO Q6H PRN PRN Reason: Allergy Symptoms metFORMIN HCL [Glucophage] 500 mg PO BID@0900,2100 buPROPion HCL [Wellbutrin XL] 150 mg PO DAILY@0900 Folic Acid 1 mg PO DAILY@0900 Famotidine 20 mg PO HS@2100 Atorvastatin [Lipitor] 20 mg PO HS@2100 Changed Metoprolol Tartrate [Lopressor] 25 mg PO BID@0900,2100 #0 Discharge Medication List Lactulose 10 gm PO BID@899,209906/01/18 [History] Atorvastatin [Lipitor] 20 mg PO HS@209910/04/19 [History] Famotidine 20 mg PO HS@209910/04/19 [History] Folic Acid 1 mg PO DAILY@89910/04/19 [History] buPROPion HCL [Wellbutrin XL] 150 mg PO DAILY@89910/04/19 [History] diphenhydrAMINE HCL [Benadryl] 25 mg PO Q6H PRN 10/04/19 [History] metFORMIN HCL [Glucophage] 500 mg PO BID@899,209910/04/19 [History] Melatonin 5 mg PO HS PRN tablet 10/09/19 [Rx] Metoprolol Tartrate [Lopressor] 25 mg PO BID@899,2099 #0 10/09/19 [Rx] Levofloxacin [Levaquin] 500 mg PO DAILY 1 Days #1 tab 10/11/19 [Rx] Follow up Appointment(s)/Referral(s): Luis Wan MD [Primary Care Provider] - 1-2 days
== END 2019-10-11 15:15 | DRG 915 ==
LOC: EC 12:22 → 5NMEDONC 14:04 → OBSVTOIN 10-06 08:52 → 5NMEDONC 10-10 21:37
PROVIDERS: ADMIT Hospitalist; ATTEND Hospitalist
DX: T78.3XXA Angioneurotic edema, initial encounter (principal); G93.41 Metabolic encephalopathy; B96.20 Unspecified Escherichia coli [E. coli] as the cause of diseases classified elsewhere; E11.9 Type 2 diabetes mellitus without complications; E66.9 Obesity, unspecified; E78.5 Hyperlipidemia, unspecified; F02.80 Dementia in other diseases classified elsewhere, unspecified severity, without behavioral disturbance, psychotic disturbance, mood disturbance, and anxiety; F41.9 Anxiety disorder, unspecified; G30.1 Alzheimer's disease with late onset; G31.09 Other frontotemporal neurocognitive disorder; G47.00 Insomnia, unspecified; G47.30 Sleep apnea, unspecified; I10 Essential (primary) hypertension; J45.909 Unspecified asthma, uncomplicated; K57.30 Diverticulosis of large intestine without perforation or abscess without bleeding; M19.91 Primary osteoarthritis, unspecified site; N30.90 Cystitis, unspecified without hematuria; Z68.35 Body mass index [BMI] 35.0-35.9, adult; Z79.84 Long term (current) use of oral hypoglycemic drugs; Z79.899 Other long term (current) drug therapy; Z87.440 Personal history of urinary (tract) infections; Z87.891 Personal history of nicotine dependence; Z88.0 Allergy status to penicillin; Z82.49 Family history of ischemic heart disease and other diseases of the circulatory system; Z20.828 Contact with and (suspected) exposure to other viral communicable diseases
CPT/HCPCS: 36415; 80048; 81001; 84145; 85025; 87077; 87086; 87186; 87635; 93005; 96374; 96375; 99284

== ENCOUNTER 2020-02-08 22:43 | Emergency (ER) | payer MEDICARE, OTHER ==
--- NOTE | 2020-02-08 23:45 | CT ---
EXAMINATION TYPE: CT brain cspine wo con DATE OF EXAM: 02/08/2020 COMPARISON: CT brain 02/20/2011 HISTORY: FALL Headache. Neck pain CT DLP: 1026.2 mGycm Automated exposure control for dose reduction was used. There is cerebral cortical atrophy. There is no mass effect nor midline shift. There is no sign of in tracranial hemorrhage. Calvarium is intact. Skull base is intact. Cervical vertebra show fairly normal alignment. There is no significant disc space narrowing. Facet j oints are intact. There is multilevel mild facet hypertrophic arthropathy. Prevertebral soft tissues are intact. IMPRESSION: Cerebral atrophy that has progressed compared to old exam. No acute intracranial abnormality. No acute abnormality of the cervical spine. Mild degenerative changes.
--- NOTE | 2020-02-08 23:50 | CT ---
EXAMINATION TYPE: CT facial bones wo con DATE OF EXAM: 02/08/2020 COMPARISON: None HISTORY: FALL Pain CT DLP: 260.1 mGycm Automated exposure control for dose reduction was used. The mandibular ring is intact. Temporomandibular joints are intact. Zygomatic arches appear normal. M axilla is intact. There are small mucus retention cysts in both maxillary sinuses. There is normal ae ration of the mastoid sinuses. The skull base is intact. There is no evidence of a blowout fracture. Orbital margins are intact. Ethmoid sinuses appear normal. Frontal sinuses appear normal. There is fracture of the nasal bone which is deviated slightly to the right side. There is soft tissu e air bubbles at the nasal bone fracture. There is some soft tissue swelling and debris in the anteri or nasopharynx. The globes are symmetric. There is no evidence of retro-orbital mass. IMPRESSION: Mildly displaced nasal bone fracture. Displacement is 2 mm. Small mucus retention cysts in the maxill fabian sinuses. No evidence of orbital fracture.
--- NOTE | 2020-02-08 23:53 | XR ---
EXAMINATION TYPE: XR chest 1V DATE OF EXAM: 02/08/2020 COMPARISON: 08/19/2018 HISTORY: Chest pain. Trauma. TECHNIQUE: 2 views FINDINGS: Heart is normal. Lungs are clear of consolidation. Thoracic aorta is atheromatous. There ar e no hilar masses. There is no heart failure. Costophrenic angles are clear. IMPRESSION: No active cardiopulmonary disease. No change compared to old exam.
[2020-02-08] MEDS ORDERED: LIDOCAINE 1% INJ 10MG/ML (20 ML MDV) SQ STA (23:59)
[2020-02-09] MEDS: CEPHALEXIN 500 MG CAP PO STA ×2 (00:27→01:14)
[2020-02-09] MEDS ORDERED: ceFAZolin 1,000 MG VIAL (IM USE) IM STA (00:48)
[2020-02-09] MEDS ORDERED: DIPH,PERTUS(ACELL)TETVAC-LF 0.5 ML VIAL IM ONE (01:12)
--- NOTE | 2020-02-09 01:12 | ED ---
General Adult HPI - General Chief complaint: Fall Stated complaint: Fall, facial injury Time Seen by Provider: 02/08/20 22:52 Source: patient, EMS, RN notes reviewed, old records reviewed Mode of arrival: EMS Limitations: altered mental status - History of Present Illness Initial comments: 74-year-old female patient presents to ED chief complaint mechanical fall. Patient has a history of dementia. No blood thinners. Fall was witnessed. Patient stated he fell forward hitting her face on the ground. Other injury was noted. Systemic: Pt denies fatigue, fever/chills, rash. Pt denies weakness, night sweats, weight loss. Neuro: Pt denies headache, visual disturbances, syncope or pre-syncope. HEENT: Pt denies ocular discharge or irritation, otalgia, rhinorrhea, pharyngitis or notable lymphadenopathy. Cardiopulmonary: Pt denies chest pain, SOB, heart palpitations, dyspnea on exertion. Abdominal/GI: Pt denies abdominal pain, n/v/d. : Pt denies dysuria, burning w/ urination, frequency/urgency. Denies new onset urinary or bowel incontinence. MSK: Pt denies myalgia, loss of strength or function in extremities. Neuro: Pt denies new onset weakness, paresthesias. - Related Data Home Medications Medication Instructions Recorded Confirmed Lactulose 10 gm PO BID@0900,209906/01/18 02/08/20 Atorvastatin [Lipitor] 20 mg PO HS@209910/04/19 02/08/20 Famotidine 20 mg PO HS@209910/04/19 02/08/20 Folic Acid 1 mg PO DAILY@89910/04/19 02/08/20 buPROPion HCL [Wellbutrin XL] 150 mg PO DAILY@89910/04/19 02/08/20 diphenhydrAMINE HCL [Benadryl] 25 mg PO Q6H PRN 10/04/19 02/08/20 metFORMIN HCL [Glucophage] 500 mg PO BID@899,209910/04/19 02/08/20 Metoprolol Tartrate [Lopressor] 12.5 mg PO BID@0900,209902/08/20 02/08/20 Previous Rx's Medication Instructions Recorded Melatonin 5 mg PO HS PRN tablet 10/09/19 Cephalexin [Keflex] 500 mg PO Q6HR 10 Days #40 cap 02/09/20 Allergies Allergy/AdvReac Type Severity Reaction Status Date / Time aspirin Allergy Mild Nausea Verified 02/08/20 23:26 codeine Allergy Mild Nausea Verified 02/08/20 23:26 Penicillins Allergy Unknown Verified 02/08/20 23:26 cod Allergy Severe Unknown Uncoded 08/19/18 14:59 Review of Systems ROS Statement: Those systems with pertinent positive or pertinent negative responses have been documented in the HPI. ROS Other: All systems not noted in ROS Statement are negative. Past Medical History Past Medical History: Chest Pain / Angina, Dementia, Hyperlipidemia, Hypertension, Memory Impairment, Osteoarthritis (OA), Sleep Apnea/CPAP/BIPAP Additional Past Medical History / Comment(s): Frontal lobe impairment, confused most of the time, impulsive, NIDDM type II, UTIs, UTI with sepsis, protein calorie malnutrition, iron anemia, hypokalemia, vitamin D deficiency, constipation, diverticular disease, DDD, low back pain, occasional incontinence, ubaldo denied hx of asthma. History of Any Multi-Drug Resistant Organisms: None Reported Past Surgical History: Back Surgery Additional Past Surgical History / Comment(s): Colonoscopy Past Anesthesia/Blood Transfusion Reactions: No Reported Reaction Past Psychological History: Anxiety, Depression Smoking Status: Unknown if ever smoked Past Alcohol Use History: Occasional Past Drug Use History: None Reported - Past Family History Father Family Medical History: Cancer Additional Family Medical History / Comment(s): Ubaldo does not know type of cancer. Mother Additional Family Medical History / Comment(s): HEART DISEASE General Exam - General Exam Comments Initial Comments: Constitutional: NAD, Pt has pleasant affect. Pleasantly demented. HEENT: NC/AT, trachea midline, neck supple, no lymphadenopathy. Posterior pharynx non erythematous, without exudates. External ears appear normal, without discharge. Mucous membranes moist. Eyes PERRLA, EOM intact. There is no scleral icterus. No pallor noted. Mild abrasion to bridge of nose with some soft tiss ue swelling. There irrigated and cleaned. No septal hematoma Cardiopulmonary: RRR, no murmurs, rubs or gallops, no JVD noted. Lungs CTAB in anterior and posterior aguiar. No peripheral edema. Abdominal exam: Abdomen soft and non-distended. Abdomen non-tender to palpation in all 4 quadrants. Bowel sounds active in LLQ. No hepatosplenomegaly. No ecchymosis Neuro: CN II-XII grossly intact. No nuchal rigidity. No raccon eyes, no sullivan sign, no hemotympanum. No cervical spinal tenderness. MSK: Full active ROM in upper and lower extremities, 5/5 stregnth. Limitations: altered mental status Course Vital Signs 02/08/20 02/09/20 02/09/20 22:45 00:33 00:48 Temperature 97.1 F L Pulse Rate 90 90 Respiratory 18 18 Rate Blood Pressure 151/88 179/94 173/92 O2 Sat by Pulse 95 96 Oximetry 02/09/20 02/09/20 01:15 01:51 Temperature 98.1 F Pulse Rate 88 85 Respiratory 18 16 Rate Blood Pressure 166/85 160/83 O2 Sat by Pulse 95 95 Oximetry Medical Decision Making - Medical Decision Making 74-year-old female patient was ED for evaluation of a mechanical fall with nose injury. Patient vital signs display mild hypertension. Physical exam doesn't display swelling with mild bleeding from bridge of nose. CT brain and C-spine display any acute cranial abnormality. No acute abnormalities cervical spine. CT facial bones without contrast display mildly displaced nasal bone fracture displaces 2 mm. Small mucous retention cyst. No evidence of orbital fracture. Chest x-ray negative for acute process. Patient did not take a pill was 1 g of Ancef. Intramuscularly. Tetanus was updated. Patient was discharged with outpatient follow-up and return precautions. Case discussed with Dr. Mccartney. Disposition Clinical Impression: Nasal bone fracture Disposition: HOME SELF-CARE Condition: Stable Instructions (If sedation given, give patient instructions): Nasal Fracture (ED) Additional Instructions: Follow up with PCP and ENT tomorrow. Return to ED if any worsening symptoms. No nose blowing. Take antibiotics as directed. Prescriptions: Cephalexin [Keflex] 500 mg PO Q6HR 10 Days #40 cap Is patient prescribed a controlled substance at d/c from ED?: No Referrals: Luis Wan MD [Primary Care Provider] - 1-2 days Mic Simental DO [Doctor of Osteopathic Medicine] - 1-2 days
[2020-02-09 01:54] VITALS: BP 160/83; PULSE 85; RESP 16; TEMP 98.1
== END 2020-02-09 02:18 | disposition home or self-care (01) ==
LOC: EC 22:43
DX: S02.2XXA Fracture of nasal bones, initial encounter for closed fracture (principal); F03.90 Unspecified dementia, unspecified severity, without behavioral disturbance, psychotic disturbance, mood disturbance, and anxiety; F41.9 Anxiety disorder, unspecified; F32.9 Major depressive disorder, single episode, unspecified; E78.5 Hyperlipidemia, unspecified; E11.9 Type 2 diabetes mellitus without complications; G47.30 Sleep apnea, unspecified; I10 Essential (primary) hypertension; Z79.84 Long term (current) use of oral hypoglycemic drugs; Z79.899 Other long term (current) drug therapy; Z88.0 Allergy status to penicillin; Z88.5 Allergy status to narcotic agent; Z88.6 Allergy status to analgesic agent; Z99.89 Dependence on other enabling machines and devices; W01.198A Fall on same level from slipping, tripping and stumbling with subsequent striking against other object, initial encounter; Y92.89 Other specified places as the place of occurrence of the external cause
CPT/HCPCS: 99284; 96372; 90471; 71045; 72125; 70486; 70450; 90715; J0690; J2001

== ENCOUNTER 2020-02-09 21:10 | Emergency (ER) | payer MEDICARE, OTHER ==
--- NOTE | 2020-02-09 21:16 | ED ---
General Adult HPI - General Stated complaint: arm pain Time Seen by Provider: 02/09/20 21:16 - History of Present Illness Initial comments: Patient is 74-year-old female with history of dementia presenting to the emergency Department with chief complaint of arm pain. Patient had a fall yesterday with some facial injuries. There is no significant findings on imaging. Patient complained of right arm pain today at [facility] where she lives. The facility staff obtained a portable x-ray of the right arm which revealed a possible right humeral fracture. Patient was sent to the ED for further imaging. Patient has moderate to severe dementia and is not answering questions appropriately. She is alert. Patient has no complaints of pain at this time. Patient does not appear to be in discomfort when at rest. - Related Data Home Medications Medication Instructions Recorded Confirmed Lactulose 10 gm PO BID@0900,209906/01/18 02/08/20 Atorvastatin [Lipitor] 20 mg PO HS@209910/04/19 02/08/20 Famotidine 20 mg PO HS@209910/04/19 02/08/20 Folic Acid 1 mg PO DAILY@0900 10/04/19 02/08/20 buPROPion HCL [Wellbutrin XL] 150 mg PO DAILY@0900 10/04/19 02/08/20 diphenhydrAMINE HCL [Benadryl] 25 mg PO Q6H PRN 10/04/19 02/08/20 metFORMIN HCL [Glucophage] 500 mg PO BID@0900,209910/04/19 02/08/20 Metoprolol Tartrate [Lopressor] 12.5 mg PO BID@0900,209902/08/20 02/08/20 Previous Rx's Medication Instructions Recorded Melatonin 5 mg PO HS PRN tablet 10/09/19 Cephalexin [Keflex] 500 mg PO Q6HR 10 Days #40 cap 02/09/20 Allergies Allergy/AdvReac Type Severity Reaction Status Date / Time aspirin Allergy Mild Nausea Verified 02/08/20 23:26 codeine Allergy Mild Nausea Verified 02/08/20 23:26 Penicillins Allergy Unknown Verified 02/08/20 23:26 cod Allergy Severe Unknown Uncoded 08/19/18 14:59 Review of Systems ROS Statement: Those systems with pertinent positive or pertinent negative responses have been documented in the HPI. ROS Other: All systems not noted in ROS Statement are negative. Past Medical History Past Medical History: Chest Pain / Angina, Dementia, Hyperlipidemia, Hypertension, Memory Impairment, Osteoarthritis (OA), Sleep Apnea/CPAP/BIPAP Additional Past Medical History / Comment(s): Frontal lobe impairment, confused most of the time, impulsive, NIDDM type II, UTIs, UTI with sepsis, protein calorie malnutrition, iron anemia, hypokalemia, vitamin D deficiency, cons tipation, diverticular disease, DDD, low back pain, occasional incontinence, ubaldo denied hx of asthma. History of Any Multi-Drug Resistant Organisms: None Reported Past Surgical History: Back Surgery Additional Past Surgical History / Comment(s): Colonoscopy Past Anesthesia/Blood Transfusion Reactions: No Reported Reaction Past Psychological History: Anxiety, Depression Smoking Status: Unknown if ever smoked Past Alcohol Use History: Occasional Past Drug Use History: None Reported - Past Family History Father Family Medical History: Cancer Additional Family Medical History / Comment(s): Ubaldo does not know type of cancer. Mother Additional Family Medical History / Comment(s): HEART DISEASE General Exam Limitations: language barrier General appearance: alert, in no apparent distress Head exam: Present: atraumatic, normocephalic. Absent: normal inspection (Some periorbital ecchymosis) Eye exam: Present: normal appearance, PERRL, EOMI Pupils: Present: normal accommodation ENT exam: Present: normal exam, normal oropharynx, mucous membranes moist Neck exam: Present: normal inspection, full ROM. Absent: tenderness Respiratory exam: Present: normal lung sounds bilaterally. Absent: respiratory distress, wheezes, rales Cardiovascular Exam: Present: regular rate, normal rhythm, normal heart sounds Extremities exam: Present: normal inspection, tenderness (Limited range of motion in the right upper extremity due to pain. Mid humeral tenderness to palpation.), normal capillary refill, other (+2 ulnar and radial pulses bilaterally. She responds to pain in the right upper extremity). Absent: full ROM Back exam: Present: normal inspection, full ROM. Absent: tenderness Neurological exam: Present: alert Psychiatric exam: Present: normal affect, normal mood Skin exam: Present: warm, dry, intact, normal color Course Vital Signs 02/09/20 02/09/20 21:14 23:04 Temperature 98.0 F 97.8 F Pulse Rate 103 H 108 H Respiratory 16 18 Rate Blood Pressure 150/110 157/127 O2 Sat by Pulse 96 100 Oximetry Procedures - Orthopedic Splinting/Casting Injury #1 Side: right Upper Extremity Injury Location: long arm Upper Extremity Immobilizer: sling/shoulder immobilizer, posterior splint, Shola wrap, synthetic pre-padded splint Medical Decision Making - Medical Decision Making Patient is 74-year-old female presenting to the emergency department for right arm pain. Patient has history of dementia and is not answer questions appropriately although this appears to be her baseline. The staff from [facility] sent her to the emergency department to obtain a repeat x-rays of the right humerus. X-rays obtained shows angulated displaced oblique fracture of the midshaft of the humerus. Her last viral fracture proximal shaft of the humerus. She is vascularly intact. She does respond to pain in the right upper extremity patient did not complain of any pain unless pressure was applied to the injured arm. I spoke with who advised placement of a splint, sling and he will see her on Wednesday in an outpatient setting. Posterior long- arm splint applied. Sling applied. Case discussed with Disposition Clinical Impression: Proximal humerus fracture, Fracture of humeral shaft, right, closed Disposition: HOME SELF-CARE Condition: Stable Instructions (If sedation given, give patient instructions): ORIF (DC) Additional Instructions: Follow-up with an Dr Hamilton on Wednesday. Return to emergency department if symptoms worsen. Is patient prescribed a controlled substance at d/c from ED?: No Referrals: Luis Wan MD [Primary Care Provider] - 1-2 days Vinnie Padilla DO [Doctor of Osteopathic Medicine] - 1-2 days Time of Disposition: 23:10
--- NOTE | 2020-02-09 22:22 | XR ---
EXAMINATION TYPE: XR humerus RT DATE OF EXAM: 02/09/2020 COMPARISON: NONE HISTORY: Fracture. Pain. TECHNIQUE: 2 views FINDINGS: There is an oblique fracture mid shaft of the right humerus. There is separation of the fra gments up to 13 mm. There is mild lateral angulation at the fracture site. There is also nondisplaced hairline spiral fracture proximal shaft of the humerus. The elbow joint is anatomic. There is no dis location at the shoulder joint. IMPRESSION: Angulated displaced oblique fracture mid shaft of the humerus. Hairline spiral fracture p roximal shaft of the humerus.
[2020-02-09 23:07] VITALS: TEMP 97.8
[2020-02-10 00:57] VITALS: BP 140/94; PULSE 104; RESP 17
== END 2020-02-10 01:20 | disposition home or self-care (01) ==
LOC: EC 21:10
DX: S42.331A Displaced oblique fracture of shaft of humerus, right arm, initial encounter for closed fracture (principal); S42.294A Other nondisplaced fracture of upper end of right humerus, initial encounter for closed fracture; F03.90 Unspecified dementia, unspecified severity, without behavioral disturbance, psychotic disturbance, mood disturbance, and anxiety; F41.9 Anxiety disorder, unspecified; F32.9 Major depressive disorder, single episode, unspecified; E78.5 Hyperlipidemia, unspecified; I10 Essential (primary) hypertension; I25.2 Old myocardial infarction; M19.90 Unspecified osteoarthritis, unspecified site; D50.9 Iron deficiency anemia, unspecified; E11.9 Type 2 diabetes mellitus without complications; Z79.84 Long term (current) use of oral hypoglycemic drugs; Z79.899 Other long term (current) drug therapy; Z88.6 Allergy status to analgesic agent; Z88.5 Allergy status to narcotic agent; Z88.0 Allergy status to penicillin; Z91.018 Allergy to other foods; W18.30XA Fall on same level, unspecified, initial encounter
CPT/HCPCS: 29105; 99283

== ENCOUNTER 2020-04-29 09:00 | Emergency (ER) | payer MEDICARE, OTHER ==
[2020-04-29 09:24] VITALS: TEMP 97.7
--- NOTE | 2020-04-29 10:03 | XR ---
EXAMINATION TYPE: XR soft tissue neck DATE OF EXAM: 04/29/2020 COMPARISON: None HISTORY: 75-year-old female possible foreign body ingestion TECHNIQUE: AP and lateral views FINDINGS: The nasopharynx and oropharynx are clear. No prevertebral soft tissue thickening. Epiglottis is kait l. No retained radiopaque foreign body is identified. No narrowing of the subglottic airway. IMPRESSION: No radiopaque foreign body identified. No airway compromise.
--- NOTE | 2020-04-29 10:04 | XR ---
EXAMINATION TYPE: XR chest 2V DATE OF EXAM: 04/29/2020 COMPARISON: 02/08/2020 HISTORY: 75-year-old female swollen tongue, possible foreign body ingestion TECHNIQUE: AP and lateral views FINDINGS: Patient is rotated towards the right ovary than normal cardiac and mediastinal contours. Heart is upp er limits of normal in size. Mild elongation thoracic aorta. On the lateral view, possible enlargemen t of the right main pulmonary artery. No consolidation or pleural effusion seen. Epicardial fat pad a t the cardiac apex. IMPRESSION: Rotated exam. Borderline heart size. Possible underlying pulmonary arterial hypertension. No definite acute process.
[2020-04-29 10:06] LABS: Basophils % (A) 0 %; Eosinophils # (A) 0.4 k/uL (0-0.7); Eosinophils % (A) 3 %; HCT 38.6 % (34.0-46.0); HGB 12.7 gm/dL (11.4-16.0); Lymphocytes # (A) 2.7 k/uL (1.0-4.8); Lymphocytes % (A) 24 %; MCH 35.1 pg (25.0-35.0); MCHC 32.9 g/dL (31.0-37.0); MCV 106.7 fL (80.0-100.0); Macrocytosis Moderate; Mean Platelet Volume 7.1; Monocytes # (A) 0.6 k/uL (0-1.0); Monocytes % (A) 5 %; Neutrophils # (A) 7.6 k/uL (1.3-7.7); Neutrophils % (A) 67 %; Platelet Count 415 k/uL (150-450); RBC 3.62 m/uL (3.80-5.40); WBC 11.4 k/uL (3.8-10.6)
[2020-04-29 10:24] LABS: ALT 15 U/L (4-34); AST 20 U/L (14-36); African American GFR (CKD) >90 (>60 ml/min/1.73 sqM); Albumin 3.5 g/dL (3.5-5.0); Alkaline Phosphatase 88 U/L (38-126); Anion Gap 6 mmol/L; Blood Urea Nitrogen 9 mg/dL (7-17); Calcium 9.5 mg/dL (8.4-10.2); Carbon Dioxide 25 mmol/L (22-30); Chloride 108 mmol/L (98-107); Glucose 142 mg/dL (74-99); Non-African American GFR(CKD) >90 (>60 ml/min/1.73 sqM); Potassium 4.1 mmol/L (3.5-5.1); Sodium 139 mmol/L (137-145); Total Bilirubin 0.6 mg/dL (0.2-1.3); Total Protein 6.4 g/dL (6.3-8.2)
--- NOTE | 2020-04-29 10:31 | ED ---
General Adult HPI - General Chief complaint: Allergic Reaction Stated complaint: allergic reaction Source: EMS Mode of arrival: EMS Limitations: altered mental status - History of Present Illness Initial comments: Patient is a 75-year-old female, history dementia, sent in to the emergency Department from [facility] for a swollen tongue. The resident states that she has had this before, history of pica. She was having no difficulty breathing, no difficulty speaking. She did receive 50mg of Benadryl by EMS prior to arrival. Patient is showing no signs of acute distress, she denies any pain. She has no other family members here to help with history. There are no further complaints. Upon arrival to the ER, her vitals are stable. - Related Data Home Medications Medication Instructions Recorded Confirmed Lactulose 10 gm PO BID@0900,209906/01/18 04/29/20 Atorvastatin [Lipitor] 20 mg PO HS@209910/04/19 04/29/20 Famotidine 20 mg PO HS@209910/04/19 04/29/20 Folic Acid 1 mg PO DAILY@0910/04/19 04/29/20 metFORMIN HCL [Glucophage] 500 mg PO BID@0900,209910/04/19 04/29/20 Metoprolol Tartrate [Lopressor] 12.5 mg PO BID@0900,209902/08/20 04/29/20 Acetaminophen Tab [Tylenol Tab] 500 mg PO Q8H PRN 04/29/20 04/29/20 Acetaminophen Tab [Tylenol] 650 mg PO Q4H PRN 04/29/20 04/29/20 Acetaminophen [Tylenol] 500 mg PO DAILY PRN 04/29/20 04/29/20 Calcium Carb-Vit D 500Mg-200Un 1 tab PO BID 04/29/20 04/29/20 [Oscal 500+D] HYDROcodone/APAP 5-325MG [[place] 1 tab PO TID PRN 04/29/20 04/29/20 5-325] buPROPion SR [Wellbutrin Sr] 100 mg PO DAILY 04/29/20 04/29/20 Allergies Allergy/AdvReac Type Severity Reaction Status Date / Time aspirin Allergy Mild Nausea Verified 04/29/20 09:35 codeine Allergy Mild Nausea Verified 04/29/20 09:35 Penicillins Allergy Unknown Verified 04/29/20 09:35 cod Allergy Severe Unknown Uncoded 04/29/20 09:35 Review of Systems ROS Statement: Those systems with pertinent positive or pertinent negative responses have been documented in the HPI. ROS Other: All systems not noted in ROS Statement are negative. Past Medical History Past Medical History: Chest Pain / Angina, Dementia, Hyperlipidemia, Hypertension, Memory Impairment, Osteoarthritis (OA), Sleep Apnea/CPAP/BIPAP Additional Past Medical History / Comment(s): Frontal lobe impairment, confused most of the time, impulsive, NIDDM type II, UTIs, UTI with sepsis, protein calorie malnutrition, iron anemia, hypokalemia, vitamin D deficiency, constipation, diverticular disease, DDD, low back pain, occasional incontinence, ubaldo denied hx of asthma. History of Any Multi-Drug Resistant Organisms: None Reported Past Surgical History: Back Surgery Additional Past Surgical History / Comment(s): Colonoscopy Past Anesthesia/Blood Transfusion Reactions: No Reported Reaction Past Psychological History: Anxiety, Depression Smoking Status: Unknown if ever smoked Past Alcohol Use History: Occasional Past Drug Use History: None Reported - Past Family History Father Family Medical History: Cancer Additional Family Medical History / Comment(s): Ubaldo does not know type of cancer. Mother Additional Family Medical History / Comment(s): HEART DISEASE General Exam - General Exam Comments Initial Comments: GENERAL: Patient is well-developed and well-nourished. Patient is nontoxic and in no acute distress. HEAD: Atraumatic, normocephalic. EYES: Pupils equal round and reactive to light, extraocular movements intact, sclera anicteric, conjunctiva are normal. Eyelids were unremarkable. ENT: TMs normal, nares patent, oropharynx clear without exudates. Moist mucous membranes. NECK: Normal range of motion, supple without lymphadenopathy or JVD. LUNGS: Unlabored respirations. Breath sounds clear to auscultation bilaterally and equal. No wheezes rales or rhonchi. HEART: Regular rate and rhythm without murmurs, rubs or gallops. ABDOMEN: Soft, nontender, normoactive bowel sounds. No guarding, no rebound. No masses appreciated. : Deferred MUSCULOSKELETAL: Normal extremities with adequate strength and normal range of motion, no pitting or edema. No clubbing or cyanosis. NEUROLOGICAL: Patient is alert and oriented x 1. Symmetrical smile. History of dementia. PSYCH: Normal mood, normal affect. SKIN: Warm, Dry, normal turgor, no rashes or lesions noted. Limitations: altered mental status Course Vital Signs 04/29/20 04/29/20 04/29/20 09:17 10:00 11:17 Temperature 97.7 F Pulse Rate 75 69 Respiratory 18 18 97 H Rate Blood Pressure 138/73 128/87 O2 Sat by Pulse 99 96 98 Oximetry Medical Decision Making - Medical Decision Making Patient is a 75-year-old female with history dementia sent in by her residence for swelling of the tongue. She does history of pica. She was in no acute distress, no trouble breathing. Her vital signs are stable. Her exam is unremarkable, no facial swelling, no tongue swelling. History is limited secondary to dementia and no family members present. I did do an x-ray, soft tissue neck x-ray which reveals no acute abnormalities. Her lab work is stable. Patient vital signs remained stable in the ER. She is stable to discharge. She will go back to [facility] the [facility] via EMS. Case discussed with Dr. Hoskins. - Lab Data Result diagrams: 04/29/20 09:46 04/29/20 09:46 Lab Results 04/29/20 04/29/20 Range/Units 09:46 09:46 WBC 11.4 H (3.8-10.6) k/uL RBC 3.62 L (3.80-5.40) m/uL Hgb 12.7 (11.4-16.0) gm/dL Hct 38.6 (34.0-46.0) % MCV 106.7 H (80.0-100.0) fL MCH 35.1 H (25.0-35.0) pg MCHC 32.9 (31.0-37.0) g/dL RDW 13.0 (11.5-15.5) % Plt Count 415 (150-450) k/uL Neutrophils % 67 % Lymphocytes % 24 % Monocytes % 5 % Eosinophils % 3 % Basophils % 0 % Neutrophils # 7.6 (1.3-7.7) k/uL Lymphocytes # 2.7 (1.0-4.8) k/uL Monocytes # 0.6 (0-1.0) k/uL Eosinophils # 0.4 (0-0.7) k/uL Basophils # 0.0 (0-0.2) k/uL Macrocytosis Moderate Sodium 139 (137-145) mmol/L Potassium 4.1 (3.5-5.1) mmol/L Chloride 108 H (98-107) mmol/L Carbon Dioxide 25 (22-30) mmol/L Anion Gap 6 mmol/L BUN 9 (7-17) mg/dL Creatinine 0.56 (0.52-1.04) mg/dL Est GFR (CKD-EPI)AfAm >90 (>60 ml/min/1.73 sqM) Est GFR (CKD-EPI)NonAf >90 (>60 ml/min/1.73 sqM) Glucose 142 H (74-99) mg/dL Calcium 9.5 (8.4-10.2) mg/dL Total Bilirubin 0.6 (0.2-1.3) mg/dL AST 20 (14-36) U/L ALT 15 (4-34) U/L Alkaline Phosphatase 88 (38-126) U/L Total Protein 6.4 (6.3-8.2) g/dL Albumin 3.5 (3.5-5.0) g/dL Disposition Clinical Impression: Mild tongue swelling Disposition: HOME SELF-CARE Condition: Stable Instructions (If sedation given, give patient instructions): Normal Exam (ED) Additional Instructions: Please return to the Emergency Department if symptoms worsen or any other concerns. Workup today was normal. May give additional Benadryl dose every 4-6 hours for additional swelling. Is patient prescribed a controlled substance at d/c from ED?: No Referrals: Luis Wan MD [Primary Care Provider] - 1-2 days
[2020-04-29 11:19] VITALS: BP 128/87; PULSE 69; RESP 97
== END 2020-04-29 11:26 | disposition home or self-care (01) ==
LOC: EC 09:00
DX: R22.0 Localized swelling, mass and lump, head (principal); I10 Essential (primary) hypertension; E11.9 Type 2 diabetes mellitus without complications; I20.9 Angina pectoris, unspecified; E78.5 Hyperlipidemia, unspecified; M54.5 Low back pain; G47.30 Sleep apnea, unspecified; F41.9 Anxiety disorder, unspecified; F32.9 Major depressive disorder, single episode, unspecified; Z79.84 Long term (current) use of oral hypoglycemic drugs; Z79.899 Other long term (current) drug therapy; Z88.6 Allergy status to analgesic agent; Z88.5 Allergy status to narcotic agent; Z88.0 Allergy status to penicillin; Z99.89 Dependence on other enabling machines and devices
CPT/HCPCS: 36415; 70360; 71046; 80053; 85025; 99285

== ENCOUNTER 2020-07-24 07:28 | Emergency (ER) | payer MEDICARE, OTHER ==
[2020-07-24 07:38] VITALS: RESP 16; TEMP 98
--- NOTE | 2020-07-24 07:52 | ED ---
General Adult HPI - General Chief complaint: Allergic Reaction Stated complaint: allergic reaction Time Seen by Provider: 07/24/20 07:32 Source: patient, EMS Mode of arrival: EMS Limitations: no limitations - History of Present Illness Initial comments: Dictation was produced using [employer] (powering [employer]) dictation software. please excuse any grammatical, word or spelling errors. This patient was cared for during a federal and state declared state of emergency secondary to Covid 19 Chief Complaint: 75-year-old female brought in by EMS from [facility] for foreign body ingestion and right facial swelling History of Present Illness: 75-year-old female presents to the emergency department after concern for foreign body ingestion. Patient has a history of swallowing pieces of drywall and keys. Patient is a extensive history of dem entia and frontal lobe impairment. She has history of PICA. It is unclear what patient may have swallowed. Patient unable to provide history at this time given history of baseline mental status. There is concern that perhaps patient's right-sided facial swelling was secondary to ALLERGY. She received Benadryl from [facility] staff. Unable to obtain secondary to mental status. PHYSICAL EXAM: General Impression: Alert, not in acute distress HEENT: Normocephalic atraumatic, extra-ocular movements intact, pupils equal and reactive to light bilaterally, mucous membranes moist., No drooling, slight non-erythematous swelling to the right anterior mandible, is nontender, oral examination shows no buccal erythema or swelling, neither is there any gingival swelling Cardiovascular: Heart regular rate and rhythm Chest: Able to complete full sentences, no retractions, no tachypnea Abdomen: abdomen soft, non-tender, non-distended, no organomegaly Musculoskeletal: Pulses present and equal in all extremities, no peripheral edema Motor: no focal deficits noted Neurological: CN II-XII grossly intact, no focal motor or sensory deficits noted Skin: Intact with no visualized rashes Psych: Normal affect and mood ED course: 75-year-old female presents to the emergency Department for suspicion of foreign body ingestion and right facial swelling. Vital signs upon arrival are within acceptable limits. Patient's well-appearing. She is looking around. She is not showing any signs of respiratory distress. She is not drooling. She is resting comfortably at the bedside.Basic laboratory evaluation obtained found to be within acceptable limits. Acute abdominal series is unremarkable. No foreign body identified. Patient observed in the emergency department for approximately 2 hours in stable medical condition. Patient will be discharged. Advised to follow-up with primary care physician. At this point is unclear what is causing patient's mandible or swelling. It's very unlikely to be ALLERGIC reaction concerning is nonerythematous there is no other rashes patient not exhibiting any signs of ALLERGY. EKG interpretation: Ventricular rate 76, normal sinus rhythm,. Interval 170, QRS 90, QTC 461. No ID prolongation, no QTC prolongation, no ST or T-wave changes noted. Overall, this EKG is unremarkable - Related Data Home Medications Medication Instructions Recorded Confirmed Lactulose 10 gm PO BID@0900,209906/01/18 07/24/20 Atorvastatin [Lipitor] 20 mg PO HS@209910/04/19 07/24/20 Famotidine 20 mg PO HS@209910/04/19 07/24/20 metFORMIN HCL [Glucophage] 500 mg PO BID@0900,209910/04/19 07/24/20 Metoprolol Tartrate [Lopressor] 12.5 mg PO BID@0900,209902/08/20 07/24/20 Acetaminophen Tab [Tylenol Tab] 500 mg PO Q8H 04/29/20 07/24/20 Calcium Carb-Vit D 500Mg-5Mcg 1 tab PO BID@00,209904/29/20 07/24/20 [Oscal 500+D] HYDROcodone/APAP 5-325MG [[place] 1 tab PO TID PRN 04/29/20 07/24/20 5-325] buPROPion SR [Wellbutrin Sr] 100 mg PO DAILY@89904/29/20 07/24/20 Cholecalciferol [Vitamin D3 (25 50 mcg PO DAILY@89907/24/20 07/24/20 Mcg = 1000 Iu)] Clotrimazole/Betamethasone Dip 1 applic TOPICAL Q12H 07/24/20 07/24/20 [Lotrisone Cream] Folic Acid 0.4 mg PO DAILY@89907/24/20 07/24/20 Lactose-Reduced Food [Ensure Plus] 1 can PO BID@0900,1700 07/24/20 07/24/20 Allergies Allergy/AdvReac Type Severity Reaction Status Date / Time aspirin Allergy Mild Nausea Verified 07/24/20 07:33 codeine Allergy Mild Nausea Verified 07/24/20 07:33 Penicillins Allergy Unknown Verified 07/24/20 07:33 cod Allergy Severe Unknown Uncoded 04/29/20 09:35 Review of Systems ROS Statement: Those systems with pertinent positive or pertinent negative responses have been documented in the HPI. ROS Other: All systems not noted in ROS Statement are negative. Past Medical History Past Medical History: Chest Pain / Angina, Dementia, Hyperlipidemia, Hypertension, Memory Impairment, Osteoarthritis (OA), Sleep Apnea/CPAP/BIPAP Additional Past Medical History / Comment(s): Frontal lobe impairment, confused most of the time, impulsive, NIDDM type II, UTIs, UTI with sepsis, protein calorie malnutrition, iron anemia, hypokalemia, vitamin D deficiency, constipation, diverticular disease, DDD, low back pain, occasional incontinence, ubaldo denied hx of asthma. History of Any Multi-Drug Resistant Organisms: None Reported Past Surgical History: Back Surgery Additional Past Surgical History / Comment(s): Colonoscopy Past Anesthesia/Blood Transfusion Reactions: No Reported Reaction Past Psychological History: Anxiety, Depression Smoking Status: Unknown if ever smoked Past Alcohol Use History: Occasional Past Drug Use History: None Reported - Past Family History Father Family Medical History: Cancer Additional Family Medical History / Comment(s): Ubaldo does not know type of cancer. Mother Additional Family Medical History / Comment(s): HEART DISEASE General Exam Limitations: no limitations Course Vital Signs 07/24/20 07/24/20 07:31 08:04 Temperature 98.0 F Pulse Rate 82 Respiratory 16 16 Rate Blood Pressure 178/95 O2 Sat by Pulse 97 Oximetry Medical Decision Making - Lab Data Result diagrams: 07/24/20 08:11 07/24/20 08:11 Lab Results 07/24/20 07/24/20 Range/Units 08:11 08:11 WBC 9.8 (3.8-10.6) k/uL RBC 3.72 L (3.80-5.40) m/uL Hgb 13.0 (11.4-16.0) gm/dL Hct 39.2 (34.0-46.0) % MCV 105.4 H (80.0-100.0) fL MCH 35.0 (25.0-35.0) pg MCHC 33.2 (31.0-37.0) g/dL RDW 13.1 (11.5-15.5) % Plt Count 452 H (150-450) k/uL MPV 7.4 Neutrophils % 53 % Lymphocytes % 27 % Monocytes % 4 % Eosinophils % 14 % Basophils % 1 % Neutrophils # 5.2 (1.3-7.7) k/uL Lymphocytes # 2.7 (1.0-4.8) k/uL Monocytes # 0.4 (0-1.0) k/uL Eosinophils # 1.4 H (0-0.7) k/uL Basophils # 0.1 (0-0.2) k/uL Macrocytosis Slight Sodium 140 (137-145) mmol/L Potassium 4.3 (3.5-5.1) mmol/L Chloride 107 (98-107) mmol/L Carbon Dioxide 28 (22-30) mmol/L Anion Gap 5 mmol/L BUN 12 (7-17) mg/dL Creatinine 0.56 (0.52-1.04) mg/dL Est GFR (CKD-EPI)AfAm >90 (>60 ml/min/1.73 sqM) Est GFR (CKD-EPI)NonAf >90 (>60 ml/min/1.73 sqM) Glucose 105 H (74-99) mg/dL Calcium 9.5 (8.4-10.2) mg/dL Disposition Clinical Impression: Facial swelling, Well adult health check Disposition: HOME SELF-CARE Condition: Good Instructions (If sedation given, give patient instructions): Foreign Body Ingestion (ED) Is patient prescribed a controlled substance at d/c from ED?: No Referrals: Luis Wan MD [Primary Care Provider] - 1-2 days Time of Disposition: 09:12
--- NOTE | 2020-07-24 08:18 | XR ---
EXAMINATION TYPE: XR abdomen acute w cxr DATE OF EXAM: 07/24/2020 CLINICAL HISTORY: Foreign body ingestion. TECHNIQUE: Single frontal view of chest is obtained. Supine and upright views of the abdomen are acq uired. COMPARISON: Chest x-ray. FINDINGS: Improved inspiration current study. The lungs remain grossly clear without pleural effusion or pneumothorax. Calcified left hilar lymph nodes redemonstrated. Cardiac silhouette size appears st able and upper limits of normal with slightly ectatic aorta. Osseous structures remain somewhat jeramie neralized. Gas is noted in nondistended small bowel loops. Gas and fecal material is seen in nondistended colon . Postsurgical changes L3-L5 levels with interpedicular rods and screws. No free air. Scattered phleb oliths. [id number] axial joint space loss in both hips right greater than left. No obvious meta llic foreign body. IMPRESSION: 1. Chronic changes without acute pulmonary process. 2. Overall nonobstructive bowel gas pattern.
[2020-07-24 08:37] LABS: Basophils # (A) 0.1 k/uL (0-0.2); Basophils % (A) 1 %; Eosinophils # (A) 1.4 k/uL (0-0.7); Eosinophils % (A) 14 %; HCT 39.2 % (34.0-46.0); Lymphocytes # (A) 2.7 k/uL (1.0-4.8); Lymphocytes % (A) 27 %; MCHC 33.2 g/dL (31.0-37.0); MCV 105.4 fL (80.0-100.0); Macrocytosis Slight; Mean Platelet Volume 7.4; Monocytes # (A) 0.4 k/uL (0-1.0); Monocytes % (A) 4 %; Neutrophils # (A) 5.2 k/uL (1.3-7.7); Neutrophils % (A) 53 %; Platelet Count 452 k/uL (150-450); RBC 3.72 m/uL (3.80-5.40); RDW 13.1 % (11.5-15.5); WBC 9.8 k/uL (3.8-10.6)
[2020-07-24 08:53] LABS: African American GFR (CKD) >90 (>60 ml/min/1.73 sqM); Anion Gap 5 mmol/L; Blood Urea Nitrogen 12 mg/dL (7-17); Calcium 9.5 mg/dL (8.4-10.2); Carbon Dioxide 28 mmol/L (22-30); Chloride 107 mmol/L (98-107); Glucose 105 mg/dL (74-99); Non-African American GFR(CKD) >90 (>60 ml/min/1.73 sqM); Potassium 4.3 mmol/L (3.5-5.1); Sodium 140 mmol/L (137-145)
[2020-07-24 09:37] VITALS: BP 151/86; PULSE 86
== END 2020-07-24 10:20 | disposition home or self-care (01) ==
LOC: EC 07:28
DX: R22.0 Localized swelling, mass and lump, head (principal); I25.2 Old myocardial infarction; F03.90 Unspecified dementia, unspecified severity, without behavioral disturbance, psychotic disturbance, mood disturbance, and anxiety; E78.5 Hyperlipidemia, unspecified; I10 Essential (primary) hypertension; M19.90 Unspecified osteoarthritis, unspecified site; E11.9 Type 2 diabetes mellitus without complications; F41.9 Anxiety disorder, unspecified; F32.9 Major depressive disorder, single episode, unspecified; Z79.84 Long term (current) use of oral hypoglycemic drugs; Z79.899 Other long term (current) drug therapy; Z88.6 Allergy status to analgesic agent; Z88.5 Allergy status to narcotic agent; Z88.0 Allergy status to penicillin; Z91.013 Allergy to seafood
CPT/HCPCS: 36415; 74022; 80048; 85025; 93005; 99285

== ENCOUNTER 2020-10-04 16:35 | Emergency (ER) | payer MEDICARE, OTHER ==
[2020-10-04 16:48] VITALS: BP 152/117; PULSE 77; RESP 20; TEMP 99.2
--- NOTE | 2020-10-04 17:14 | ED ---
Fall HPI - General Chief Complaint: Fall Stated Complaint: Fall Time Seen by Provider: 10/04/20 16:49 Source: EMS, RN notes reviewed Mode of arrival: EMS Limitations: altered mental status, physical limitation - History of Present Illness Initial Comments: 75-year-old female that presents to emergency department via EMS after falling and hitting her head. She is pleasantly demented while laying in bed. She was in no apparent distress or pain. EMS notes that she is a DO NOT RESUSCITATE and she was sent here to get evaluated for any fractures or internal bleeding and her head. Unable to obtain ROS due to mental status. - Related Data Home Medications Medication Instructions Recorded Confirmed Lactulose 10 gm PO BID@0900,209906/01/18 10/04/20 Atorvastatin [Lipitor] 20 mg PO HS@209910/04/19 10/04/20 metFORMIN HCL [Glucophage] 500 mg PO BID@0900,209910/04/19 10/04/20 Metoprolol Tartrate [Lopressor] 12.5 mg PO BID@0900,209902/08/20 10/04/20 Acetaminophen Tab [Tylenol Tab] 500 mg PO Q8H 04/29/20 10/04/20 Calcium Carb-Vit D 500Mg-5Mcg 1 tab PO BID@0900,209904/29/20 10/04/20 [Oscal 500+D] HYDROcodone/APAP 5-325MG [[place] 1 tab PO TID PRN 04/29/20 10/04/20 5-325] buPROPion SR [Wellbutrin Sr] 100 mg PO DAILY@0904/29/20 10/04/20 Cholecalciferol [Vitamin D3 (25 50 mcg PO DAILY@0900 07/24/20 10/04/20 Mcg = 1000 Iu)] Clotrimazole/Betamethasone Dip 1 applic TOPICAL Q12H 07/24/20 10/04/20 [Lotrisone Cream] Folic Acid 0.4 mg PO DAILY@0900 07/24/20 10/04/20 Lactose-Reduced Food [Ensure Plus] 1 can PO BID@0900,1700 07/24/20 10/04/20 Allergies Allergy/AdvReac Type Severity Reaction Status Date / Time aspirin Allergy Mild Nausea Verified 10/04/20 17:48 codeine Allergy Mild Nausea Verified 10/04/20 17:48 Penicillins Allergy Unknown Verified 10/04/20 17:48 cod Allergy Severe Unknown Uncoded 10/04/20 17:48 Review of Systems ROS Statement: Those systems with pertinent positive or pertinent negative responses have been documented in the HPI. ROS Other: All systems not noted in ROS Statement are negative. Past Medical History Past Medical History: Chest Pain / Angina, Dementia, Hyperlipidemia, Hypertension, Memory Impairment, Osteoarthritis (OA), Sleep Apnea/CPAP/BIPAP Additional Past Medical History / Comment(s): Frontal lobe impairment, confused most of the time, impulsive, NIDDM type II, UTIs, UTI with sepsis, protein calorie malnutrition, iron anemia, hypokalemia, vitamin D deficiency, constipation, diverticular disease, DDD, low back pain, occasional incontinence, ubaldo denied hx of asthma. History of Any Multi-Drug Resistant Organisms: None Reported Past Surgical History: Back Surgery Additional Past Surgical History / Comment(s): Colonoscopy Past Anesthesia/Blood Transfusion Reactions: No Reported Reaction Past Psychological History: Anxiety, Depression Smoking Status: Unknown if ever smoked Past Alcohol Use History: Occasional Past Drug Use History: None Reported - Past Family History Father Family Medical History: Cancer Additional Family Medical History / Comment(s): Ubaldo does not know type of cancer. Mother Additional Family Medical History / Comment(s): HEART DISEASE General Exam Limitations: no limitations, altered mental status (Patient is severely demented) General appearance: alert, in no apparent distress Head exam: Present: atraumatic, normocephalic, normal inspection Eye exam: Present: normal appearance, PERRL, EOMI. Absent: scleral icterus, conjunctival injection, periorbital swelling ENT exam: Present: normal exam, mucous membranes moist Neck exam: Present: normal inspection. Absent: tenderness, meningismus, lymphadenopathy Respiratory exam: Present: normal lung sounds bilaterally. Absent: respiratory distress, wheezes, rales, rhonchi, stridor Cardiovascular Exam: Present: regular rate, normal rhythm, normal heart sounds. Absent: systolic murmur, diastolic murmur, rubs, gallop, clicks GI/Abdominal exam: Present: soft, normal bowel sounds. Absent: distended, tenderness, guarding, rebound, rigid Extremities exam: Present: normal inspection, full ROM, normal capillary refill. Absent: tenderness, pedal edema, joint swelling, calf tenderness Neurological exam: Present: alert, oriented X3, CN II-XII intact Psychiatric exam: Present: normal affect, normal mood Skin exam: Present: warm, dry, intact, normal color. Absent: rash Course Vital Signs 10/04/20 16:45 Temperature 99.2 F Pulse Rate 77 Respiratory 20 Rate Blood Pressure 152/117 O2 Sat by Pulse 96 Oximetry Medical Decision Making - Medical Decision Making 75-year-old female status post fall with head injury. Labs, CT of the brain without contrast ordered. Labs unremarkable. Computed tomography scan of the brain no acute process fractures or bleeds. Case discussed with Dr. Gaitan, patient can discharge home. - Lab Data Result diagrams: 10/04/20 17:38 10/04/20 17:38 Lab Results 10/04/20 10/04/20 10/04/20 Range/Units 17:38 17:38 17:38 WBC 16.6 H (3.8-10.6) k/uL RBC 3.66 L (3.80-5.40) m/uL Hgb 13.1 (11.4-16.0) gm/dL Hct 38.0 (34.0-46.0) % MCV 103.9 H (80.0-100.0) fL MCH 35.7 H (25.0-35.0) pg MCHC 34.4 (31.0-37.0) g/dL RDW 12.9 (11.5-15.5) % Plt Count 425 (150-450) k/uL MPV 7.5 Neutrophils % 74 % Lymphocytes % 17 % Monocytes % 3 % Eosinophils % 6 % Basophils % 0 % Neutrophils # 12.2 H (1.3-7.7) k/uL Lymphocytes # 2.8 (1.0-4.8) k/uL Monocytes # 0.5 (0-1.0) k/uL Eosinophils # 1.0 H (0-0.7) k/uL Basophils # 0.0 (0-0.2) k/uL Macrocytosis Slight PT 10.1 (9.0-12.0) sec INR 0.9 (<1.2) APTT 22.4 (22.0-30.0) sec Sodium 140 (137-145) mmol/L Potassium 4.1 (3.5-5.1) mmol/L Chloride 104 (98-107) mmol/L Carbon Dioxide 28 (22-30) mmol/L Anion Gap 8 mmol/L BUN 14 (7-17) mg/dL Creatinine 0.58 (0.52-1.04) mg/dL Est GFR (CKD-EPI)AfAm >90 (>60 ml/min/1.73 sqM) Est GFR (CKD-EPI)NonAf >90 (>60 ml/min/1.73 sqM) Glucose 112 H (74-99) mg/dL Calcium 9.7 (8.4-10.2) mg/dL Total Bilirubin 0.4 (0.2-1.3) mg/dL AST 16 (14-36) U/L ALT 8 (4-34) U/L Alkaline Phosphatase 106 (38-126) U/L Total Protein 6.6 (6.3-8.2) g/dL Albumin 3.9 (3.5-5.0) g/dL - Radiology Data Radiology results: report reviewed, image reviewed CT of the brain and C-spine. Spondylitic changes in the cervical spine. No fracture. No change. Moderate diffuse atrophy. No change ethmoid and sphenoid sinusitis unchanged. Disposition Clinical Impression: Fall Disposition: HOME SELF-CARE Condition: Stable Instructions (If sedation given, give patient instructions): Fall Prevention for Older Adults (ED) Additional Instructions: Please return to the Emergency Department if symptoms worsen or any other concerns. Follow-up primary care in 3-5 days. If any increasing confusion lethargy please return Is patient prescribed a controlled substance at d/c from ED?: No Referrals: Luis Wan MD [Primary Care Provider] - 1-2 days Time of Disposition: 18:52
[2020-10-04 17:48] LABS: Basophils % (A) 0 %; Eosinophils % (A) 6 %; HGB 13.1 gm/dL (11.4-16.0); Lymphocytes # (A) 2.8 k/uL (1.0-4.8); Lymphocytes % (A) 17 %; MCH 35.7 pg (25.0-35.0); MCHC 34.4 g/dL (31.0-37.0); MCV 103.9 fL (80.0-100.0); Macrocytosis Slight; Mean Platelet Volume 7.5; Monocytes # (A) 0.5 k/uL (0-1.0); Monocytes % (A) 3 %; Neutrophils # (A) 12.2 k/uL (1.3-7.7); Neutrophils % (A) 74 %; Platelet Count 425 k/uL (150-450); RBC 3.66 m/uL (3.80-5.40); RDW 12.9 % (11.5-15.5); WBC 16.6 k/uL (3.8-10.6)
[2020-10-04 17:57] LABS: INR 0.9 (<1.2); Partial Thromboplastin Time 22.4 sec (22.0-30.0); Prothrombin Time 10.1 sec (9.0-12.0)
[2020-10-04 18:02] LABS: ALT 8 U/L (4-34); AST 16 U/L (14-36); African American GFR (CKD) >90 (>60 ml/min/1.73 sqM); Albumin 3.9 g/dL (3.5-5.0); Alkaline Phosphatase 106 U/L (38-126); Anion Gap 8 mmol/L; Blood Urea Nitrogen 14 mg/dL (7-17); Calcium 9.7 mg/dL (8.4-10.2); Carbon Dioxide 28 mmol/L (22-30); Chloride 104 mmol/L (98-107); Glucose 112 mg/dL (74-99); Non-African American GFR(CKD) >90 (>60 ml/min/1.73 sqM); Potassium 4.1 mmol/L (3.5-5.1); Sodium 140 mmol/L (137-145); Total Bilirubin 0.4 mg/dL (0.2-1.3); Total Protein 6.6 g/dL (6.3-8.2)
--- NOTE | 2020-10-04 18:26 | CT ---
EXAMINATION TYPE: CT brain cspine wo con DATE OF EXAM: 10/04/2020 COMPARISON: 02/08/2020 HISTORY: fall with head trauma CT DLP: 2414.1 mGycm Automated exposure control for dose reduction was used. Exam performed with no contrast. There is moderate diffuse cerebral atrophy. There is no mass effect nor midline shift. There is no si gn of intracranial hemorrhage. The calvarium is intact. There is normal aeration of the mastoid sinus es. Skull base is intact. There is mucosal thickening in the sphenoid and ethmoid sinuses. There is some straightening of the cervical spine. There is mild narrowing at C5-6 and C6-7 disc spac es with anterior mild spurring. Posterior elements are intact. There is no evidence of cervical spine fracture. There is mild facet arthropathy in the mid cervical spine. IMPRESSION: Spondylotic changes in the cervical spine. No fracture. No change. Moderate diffuse atrophy. No change. Ethmoid and sphenoid sinusitis unchanged.
== END 2020-10-04 21:39 | disposition home or self-care (01) ==
LOC: EC 16:35
DX: S09.90XA Unspecified injury of head, initial encounter (principal); E78.5 Hyperlipidemia, unspecified; I10 Essential (primary) hypertension; E11.9 Type 2 diabetes mellitus without complications; M19.90 Unspecified osteoarthritis, unspecified site; G47.30 Sleep apnea, unspecified; Z79.84 Long term (current) use of oral hypoglycemic drugs; Z88.0 Allergy status to penicillin; W01.10XA Fall on same level from slipping, tripping and stumbling with subsequent striking against unspecified object, initial encounter
CPT/HCPCS: 36415; 70450; 72125; 80053; 85025; 85610; 85730; 99284

== ENCOUNTER 2021-01-19 17:00 | Inpatient (IN) | payer MEDICARE, OTHER ==
--- NOTE | 2021-01-19 17:21 | ED ---
General Adult HPI - General Chief complaint: Extremity Injury, Lower Stated complaint: fall Time Seen by Provider: 01/19/21 17:13 Source: EMS, RN notes reviewed, old records reviewed Mode of arrival: EMS - History of Present Illness Initial comments: Patient is a 75-year-old female who presents from the long term after a fall last night. She has been complaining of right leg and right hip pain. She has advanced dementia and cannot provide much history. Per documentation sent with her, patient has a past medical history remarkable for dementia, hyperlipidemia, diabetes, GERD, paranoid schizophrenia, major depressive disorder, sleep apnea, hypertension. She is not on blood thinners. Per notes, patient has a shortened and externally rotated right lower extremity. She had a mechanical fall last night. She has no other injuries from the incident. - Related Data Home Medications Medication Instructions Recorded Confirmed Lactulose 10 gm PO BID@0900,209906/01/18 01/19/21 Atorvastatin [Lipitor] 20 mg PO HS@209910/04/19 01/19/21 metFORMIN HCL [Glucophage] 500 mg PO BID@0900,209910/04/19 01/19/21 Metoprolol Tartrate [Lopressor] 12.5 mg PO BID@0900,209902/08/20 01/19/21 Acetaminophen Tab [Tylenol Tab] 500 mg PO TID@0600,1400,2200 04/29/20 01/19/21 Calcium Carb-Vit D 500Mg-5Mcg 1 tab PO BID@0900,209904/29/20 01/19/21 [Oscal 500+D] HYDROcodone/APAP 5-325MG [[place] 1 tab PO TID PRN 04/29/20 01/19/21 5-325] buPROPion SR [Wellbutrin Sr] 100 mg PO DAILY@0900 04/29/20 01/19/21 Cholecalciferol [Vitamin D3 (25 50 mcg PO DAILY@89907/24/20 01/19/21 Mcg = 1000 Iu)] Clotrimazole/Betamethasone Dip 1 applic TOPICAL Q12H 07/24/20 01/19/21 [Lotrisone Cream] Folic Acid 0.4 mg PO DAILY@0900 07/24/20 01/19/21 Lactose-Reduced Food [Ensure Plus] 120 ml PO BID@0900,2100 07/24/20 01/19/21 Allergies Allergy/AdvReac Type Severity Reaction Status Date / Time aspirin Allergy Mild Nausea Verified 01/19/21 21:20 codeine Allergy Mild Nausea Verified 01/19/21 21:20 Penicillins Allergy Unknown Unknown Verified 01/19/21 21:20 cod Allergy Severe Unknown Uncoded 01/19/21 21:20 Review of Systems ROS Statement: Those systems with pertinent positive or pertinent negative responses have been documented in the HPI. Unable to obtain secondary to patient's clinical status. ROS Other: All systems not noted in ROS Statement are negative. Past Medical History Past Medical History: Chest Pain / Angina, Dementia, Hyperlipidemia, Hypertension, Memory Impairment, Osteoarthritis (OA), Sleep Apnea/CPAP/BIPAP Additional Past Medical History / Comment(s): Frontal lobe impairment, confused most of the time, impulsive, NIDDM type II, UTIs, UTI with sepsis, protein calorie malnutrition, iron anemia, hypokalemia, vitamin D deficiency, constipation, diverticular disease, DDD, low back pain, occasional incontinence, ubaldo denied hx of asthma. History of Any Multi-Drug Resistant Organisms: None Reported Past Surgical History: Back Surgery Additional Past Surgical History / Comment(s): Colonoscopy Past Anesthesia/Blood Transfusion Reactions: No Reported Reaction Past Psychological History: Anxiety, Depression Smoking Status: Unknown if ever smoked Past Alcohol Use History: Occasional Past Drug Use History: None Reported - Past Family History Father Family Medical History: Cancer Additional Family Medical History / Comment(s): Ubaldo does not know type of cancer. Mother Additional Family Medical History / Comment(s): HEART DISEASE General Exam - General Exam Comments Initial Comments: General: Appears in no acute distress and is smiling but incoherent. This is her baseline. HEAD: Normal with no signs of head trauma. EYES: PERRLA, EOMI, conjunctiva normal, no discharge. Pupils are 3 mm bilaterally. ENT: Hearing grossly intact, normal oropharynx. RESPIRATORY: Clear breath sounds bilaterally. No wheezes, rales, or rhonchi. C/V: Regular rate and rhythm. S1 and S2 auscultated, no edema, peripheral pulses 2+ and intact throughout. Patient has intact DP and TP pulses in the right lower extremity. ABD: Abd is soft, nontender, nondistended EXT: Patient has an externally rotated and shortened right lower extremity. She is tenderness to palpation over the right hip, right femur, right knee. Chest is mild tenderness over the right tib-fib. She has no cervical, lumbar, thoracic spine tenderness to palpation. Pelvis appears stable. She has no other obvious injuries. She is neurovascularly intact throughout the right lower extremity. SKIN: No rashes or lesions observed on exposed skin. NEURO: Patient is alert but not oriented secondary to her chronic dementia. No focal findings. She refuses to move the right lower extremities secondary to pain. Course Vital Signs 01/19/21 01/19/21 01/19/21 17:04 19:54 21:53 Temperature 98 F Pulse Rate 96 86 89 Respiratory 18 16 18 Rate Blood Pressure 173/89 176/91 176/97 O2 Sat by Pulse 99 99 97 Oximetry Medical Decision Making - Medical Decision Making The patient had mechanical fall at her long term yesterday resulting in what is suspected to be a right lower extremity fracture. We'll obtain basic trauma laboratory studies as well as right lower extremity plain films and CT head. She has no other obvious injuries. She does appear to be at her baseline. She is not on blood thinners. She'll be given IV Toradol for pain management. Laboratory studies are remarkable for a mild leukocytosis of 17.8 with no clear infectious etiology. Urinalysis is a dirty catch with positive squamous epithelial cells. Remainder of her laboratory studies are relatively unremarkable. Patient's head CT revealed no acute intracranial process. Chest x-ray was normal. Right lower extremity plain films revealed a right femoral intertrochanteric fracture. There is minimal displacement. Patient is neurovascularly intact in the right lower extremity. The patient will require surgical management by orthopedic surgery. I consulted orthopedic surgery, and spoke with Julissa Lopez who accepted the admission. Patient will be admitted to orthopedic surgery. I'll consult medicine, Dr. Edwards's group [facility] who agreed to evaluate the patient. The patient was therefore admitted in serious condition for her right intertrochanteric fracture. - Lab Data Result diagrams: 01/19/21 18:32 01/19/21 18:32 Lab Results 01/19/21 01/19/21 01/19/21 Range/Units 18:32 18:32 18:32 WBC 17.8 H (3.8-10.6) k/uL RBC 3.67 L (3.80-5.40) m/uL Hgb 12.7 (11.4-16.0) gm/dL Hct 37.4 (34.0-46.0) % MCV 102.0 H (80.0-100.0) fL MCH 34.7 (25.0-35.0) pg MCHC 34.0 (31.0-37.0) g/dL RDW 12.9 (11.5-15.5) % Plt Count 377 (150-450) k/uL MPV 7.3 Neutrophils % 83 % Lymphocytes % 10 % Monocytes % 4 % Eosinophils % 1 % Basophils % 0 % Neutrophils # 14.9 H (1.3-7.7) k/uL Lymphocytes # 1.8 (1.0-4.8) k/uL Monocytes # 0.8 (0-1.0) k/uL Eosinophils # 0.2 (0-0.7) k/uL Basophils # 0.0 (0-0.2) k/uL Macrocytosis Slight PT 10.4 (9.0-12.0) sec INR 1.0 (<1.2) APTT 21.8 L (22.0-30.0) sec Sodium 139 (137-145) mmol/L Potassium 4.2 (3.5-5.1) mmol/L Chloride 104 (98-107) mmol/L Carbon Dioxide 26 (22-30) mmol/L Anion Gap 9 mmol/L BUN 19 H (7-17) mg/dL Creatinine 0.56 (0.52-1.04) mg/dL Est GFR (CKD-EPI)AfAm >90 (>60 ml/min/1.73 sqM) Est GFR (CKD-EPI)NonAf >90 (>60 ml/min/1.73 sqM) Glucose 147 H (74-99) mg/dL Calcium 9.6 (8.4-10.2) mg/dL Total Bilirubin 0.9 (0.2-1.3) mg/dL AST 19 (14-36) U/L ALT 12 (4-34) U/L Alkaline Phosphatase 112 (38-126) U/L Total Protein 6.7 (6.3-8.2) g/dL Albumin 3.9 (3.5-5.0) g/dL Blood Type Blood Type Recheck Bld Type Recheck Status Antibody Screen Spec Expiration Date 01/19/21 Range/Units 19:00 WBC (3.8-10.6) k/uL RBC (3.80-5.40) m/uL Hgb (11.4-16.0) gm/dL Hct (34.0-46.0) % MCV (80.0-100.0) fL MCH (25.0-35.0) pg MCHC (31.0-37.0) g/dL RDW (11.5-15.5) % Plt Count (150-450) k/uL MPV Neutrophils % % Lymphocytes % % Monocytes % % Eosinophils % % Basophils % % Neutrophils # (1.3-7.7) k/uL Lymphocytes # (1.0-4.8) k/uL Monocytes # (0-1.0) k/uL Eosinophils # (0-0.7) k/uL Basophils # (0-0.2) k/uL Macrocytosis PT (9.0-12.0) sec INR (<1.2) APTT (22.0-30.0) sec Sodium (137-145) mmol/L Potassium (3.5-5.1) mmol/L Chloride (98-107) mmol/L Carbon Dioxide (22-30) mmol/L Anion Gap mmol/L BUN (7-17) mg/dL Creatinine (0.52-1.04) mg/dL Est GFR (CKD-EPI)AfAm (>60 ml/min/1.73 sqM) Est GFR (CKD-EPI)NonAf (>60 ml/min/1.73 sqM) Glucose (74-99) mg/dL Calcium (8.4-10.2) mg/dL Total Bilirubin (0.2-1.3) mg/dL AST (14-36) U/L ALT (4-34) U/L Alkaline Phosphatase (38-126) U/L Total Protein (6.3-8.2) g/dL Albumin (3.5-5.0) g/dL Blood Type O Negative Blood Type Recheck O Neg Bld Type Recheck Status No Antibody Screen NEGATIVE Spec Expiration Date 01/22/2021 - 2299 Disposition Clinical Impression: Intertrochanteric fracture of right femur, Dementia, Fall Disposition: ADMITTED IP TO THIS [facility] Condition: Serious
[2021-01-19] MEDS ORDERED: KETOROLAC 15 MG/ML 1 ML VIAL IVP STA (17:35)
--- NOTE | 2021-01-19 18:25 | XR ---
EXAMINATION TYPE: XR femur RT DATE OF EXAM: 01/19/2021 COMPARISON: None HISTORY: Pain TECHNIQUE: 4 views. There is acute intertrochanteric nondisplaced fracture right femur. The distal femur is intact. Knee joint is anatomic. There is no dislocation at the hip joint. IMPRESSION: Acute intertrochanteric fracture right femur.
--- NOTE | 2021-01-19 18:26 | XR ---
EXAMINATION TYPE: XR ankle limited RT DATE OF EXAM: 01/19/2021 COMPARISON: NONE HISTORY: Pain TECHNIQUE: 2 views FINDINGS: There are plantar and Achilles calcaneal spurs. I see no fracture nor dislocation. Ankle mo rtise is anatomic. IMPRESSION: Calcaneal spurring. No fracture.
--- NOTE | 2021-01-19 18:27 | XR ---
EXAMINATION TYPE: XR knee limited RT DATE OF EXAM: 01/19/2021 COMPARISON: NONE HISTORY: Pain TECHNIQUE: 2 views FINDINGS: I see no fracture nor dislocation. Knee joint is anatomic. There is no sign of joint effusi on. IMPRESSION: Negative right knee exam.
--- NOTE | 2021-01-19 18:28 | XR ---
EXAMINATION TYPE: XR tibia fibula RT DATE OF EXAM: 01/19/2021 COMPARISON: NONE HISTORY: Pain TECHNIQUE: 4 views FINDINGS: The tibia and fibula appear intact. I see no fracture nor dislocation. Ankle mortise is tr tomic. IMPRESSION: Negative right tibia and fibula exam.
--- NOTE | 2021-01-19 18:29 | XR ---
EXAMINATION TYPE: XR foot limited RT DATE OF EXAM: 01/19/2021 COMPARISON: NONE HISTORY: Pain TECHNIQUE: 2 views FINDINGS: Metatarsals are intact. I see no fracture nor dislocation. There is plantar and Achilles ca lcaneal spurring. There are no erosions. The toes appear intact. IMPRESSION: Calcaneal spurring. No fracture.
--- NOTE | 2021-01-19 18:30 | XR ---
EXAMINATION TYPE: XR Hip RT and AP Pelvis DATE OF EXAM: 01/19/2021 COMPARISON: NONE HISTORY: Pain TECHNIQUE: 3 views FINDINGS: Pelvic ring is intact. There is nondisplaced intertrochanteric fracture right femur. Sacroi liac joints are intact. IMPRESSION: Acute intertrochanteric fracture right femur.
--- NOTE | 2021-01-19 18:31 | XR ---
EXAMINATION TYPE: XR chest 1V portable DATE OF EXAM: 01/19/2021 COMPARISON: 04/29/2020 HISTORY: Pain TECHNIQUE: Single view FINDINGS: There is no heart failure nor confluent pneumonic infiltrate. Costophrenic angles are clear . There are no hilar masses. IMPRESSION: No active cardiopulmonary disease. No change.
[2021-01-19 18:47] LABS: Basophils % (A) 0 %; Eosinophils # (A) 0.2 k/uL (0-0.7); Eosinophils % (A) 1 %; HCT 37.4 % (34.0-46.0); HGB 12.7 gm/dL (11.4-16.0); Lymphocytes # (A) 1.8 k/uL (1.0-4.8); Lymphocytes % (A) 10 %; MCH 34.7 pg (25.0-35.0); Macrocytosis Slight; Mean Platelet Volume 7.3; Monocytes # (A) 0.8 k/uL (0-1.0); Monocytes % (A) 4 %; Neutrophils # (A) 14.9 k/uL (1.3-7.7); Neutrophils % (A) 83 %; Platelet Count 377 k/uL (150-450); RBC 3.67 m/uL (3.80-5.40); RDW 12.9 % (11.5-15.5); WBC 17.8 k/uL (3.8-10.6)
[2021-01-19 18:57] LABS: Prothrombin Time 10.4 sec (9.0-12.0)
[2021-01-19 19:02] LABS: ALT 12 U/L (4-34); AST 19 U/L (14-36); African American GFR (CKD) >90 (>60 ml/min/1.73 sqM); Albumin 3.9 g/dL (3.5-5.0); Alkaline Phosphatase 112 U/L (38-126); Anion Gap 9 mmol/L; Blood Urea Nitrogen 19 mg/dL (7-17); Calcium 9.6 mg/dL (8.4-10.2); Carbon Dioxide 26 mmol/L (22-30); Chloride 104 mmol/L (98-107); Glucose 147 mg/dL (74-99); Non-African American GFR(CKD) >90 (>60 ml/min/1.73 sqM); Potassium 4.2 mmol/L (3.5-5.1); Sodium 139 mmol/L (137-145); Total Bilirubin 0.9 mg/dL (0.2-1.3); Total Protein 6.7 g/dL (6.3-8.2)
[2021-01-19 19:09] LABS: Partial Thromboplastin Time 21.8 sec (22.0-30.0)
--- NOTE | 2021-01-19 19:17 | CT ---
EXAMINATION TYPE: CT brain wo con DATE OF EXAM: 01/19/2021 COMPARISON: October 04, 2020 HISTORY: Altered mental status, fall. CT DLP: 1320.4 mGycm Automated exposure control for dose reduction was used. There is diffuse cerebral cortical atrophy. There is no mass effect nor midline shift. There is no si gn of intracranial hemorrhage. Calvarium is intact. Atrophy more severe in the frontal and temporal l obes. IMPRESSION: Moderately severe atrophy. No change compared to old exam. No acute intracranial abnormality.
[2021-01-19] MEDS ORDERED: NALOXONE 0.4 MG/ML 1 ML VIAL IV PRN (19:59)
[2021-01-19] MEDS ORDERED: ACETAMINOPHEN TAB 325 MG TAB PO PRN (19:59)
[2021-01-19] MEDS ORDERED: MORPHINE SULFATE 4 MG/ML SYRINGE IV PRN (19:59)
[2021-01-19] MEDS ORDERED: ACETAMINOPHEN TAB 500 MG TAB PO SCH (20:15)
[2021-01-19] MEDS ORDERED: HYDROcodone/APAP 5-325MG 1 EACH TAB PO PRN (21:44)
[2021-01-19] MEDS: SODIUM CHLORIDE 0.9% 1,000 ML IV SCH (22:22)
[2021-01-19 22:30] LABS: Amorphous Sediment,Urine Moderate /hpf; Appearance,Urine Turbid (Clear); Bilirubin,Urine Negative (Negative); Blood,Urine Moderate (Negative); Color,Urine Yellow; Glucose,Urine (UA) Negative (Negative); Ketones,Urine Negative (Negative); Leukocyte Esterase,Urine Negative (Negative); Mucus,Urine Many /hpf; Nitrite,Urine Negative (Negative); Protein,Urine Trace (Negative); RBC,Urine 16 /hpf (0-5); Specific Gravity,Urine 1.026 (1.001-1.035); Squamous Epithelial Cell,Urine 9 /hpf (0-4); Urobilinogen,Urine <2.0 mg/dL (<2.0); WBC,Urine 11 /hpf (0-5)
--- NOTE | 2021-01-19 22:33 | HP ---
HISTORY AND PHYSICAL DATE OF SERVICE: 01/19/2021 CHIEF COMPLAINT: Fall and left hip fracture. HISTORY OF PRESENT ILLNESS: This 75-year-old woman with a past medical history of multiple medical problems including history of chest pain, dementia, hypertension, hyperlipidemia, memory impairment, sleep apnea, anxiety, depression, being followed by Dr. Wan in the outpatient setting was found to be lying on the floor and the patient was taken to [facility] and was admitted for further evaluation. Patient had left hip fracture. The patient also had previous history of UTI. The patient had multiple evaluations including hip x-ray. The patient is rather confused which is probably her baseline. Right femur fracture was noted. The CT of the brain which was reviewed personally by me showed moderate atrophy. A chest x-ray was reviewed and showed no acute changes. The patient admitted for further evaluation and treatment. There is no history of fever, rigors, chills at this time. PAST MEDICAL HISTORY: History of dementia, hypertension, hyperlipidemia, memory impairment, sleep apnea. MEDICATIONS: Home medications are reviewed and include: Tylenol, Lotrisone, hydrocodone, metformin, Lopressor, Os-Meek with vitamin D, lactulose, cholecalciferol, Wellbutrin, Lipitor. ALLERGIES: ASPIRIN, CODEINE, PENICILLIN. FAMILY HISTORY: Social history and review of systems could not be taken because of patient's change in mental status. PHYSICAL EXAMINATION: Patient is conscious, confused. Pulse 96. Blood pressure 173/89, respirations 18, temperature 98 degrees, pulse ox 99% on room air. HEENT is conjunctivae normal. Oral mucosa moist. NECK is no jugular venous distention. No carotid bruit. No lymph node enlargement. CARDIOVASCULAR system: S1, S2 muffled. RESPIRATION: Breath sounds diminished in the bases. A few rhonchi. No crackles. ABDOMEN: Soft, nontender. LEGS: Status post right hip fracture. NERVOUS SYSTEM: Higher functions as mentioned earlier. Otherwise diffuse weakness. LYMPHATICS: No lymph nodes palpable in the neck, axillae or groin. SKIN: No ulcer, no rash and no bleeding. JOINTS: No active deforming arthropathy. LAB STUDIES: WBC 17.8. Other labs are noted. ASSESSMENT: 1. Possible fall and acute right hip fracture. 2. Dementia. 3. Increased WBC. 4. Increased MCV. 5. History of urinary tract infection previously. 6. Hypertension. 7. Hyperlipidemia. 8. History of degenerative joint disease. 9. History of sleep apnea. 10.History of protein calorie malnutrition. 11.History of vitamin D deficiency. 12.History of back surgery. 13.Degenerative joint disease. 14.Anxiety/depression. 15.FULL CODE. RECOMMENDATIONS AND DISCUSSION: This 75-year-old woman who presented with multiple medical issues, we will monitor the patient closely. Continue the current medications, symptomatic treatment. Resume the home medications. Monitor blood sugars closely. Otherwise, I would also recommend UA with micro to rule out possible UTI. Otherwise, the patient is stable at this time. Patient will be cleared for surgery with some extra risk because of the above mentioned medical issues. Otherwise, currently medically stable. MMODL / IJN: [id number] /
[2021-01-19] MEDS: metFORMIN 500 MG TAB PO SCH (23:52)
[2021-01-19] MEDS: ATORVASTATIN 20 MG TAB PO SCH (23:52)
[2021-01-19] MEDS: METOPROLOL TARTRATE 12.5 MG TAB PO SCH (23:52)
[2021-01-19] MEDS: amLODIPine 10 MG TAB PO SCH (23:54)
[2021-01-20] MEDS: SODIUM CHLORIDE 0.9% 1,000 ML IV SCH ×2 (04:25→07:52)
[2021-01-20] MEDS: LACTULOSE 200 GM/300 ML (FROM 1/2 GAL JUG) PO SCH ×2 (08:44→22:50)
[2021-01-20] MEDS: PANTOPRAZOLE 40 MG TABLET PO SCH (08:44)
[2021-01-20] MEDS: METOPROLOL TARTRATE 12.5 MG TAB PO SCH ×2 (08:44→22:17)
[2021-01-20] MEDS: buPROPion SR 100 MG TABLET.ER PO SCH (08:44)
[2021-01-20] MEDS: HEPARIN SODIUM,PORCINE/PF 5,000 UNIT/0.5 ML SYRINGE SQ SCH ×2 (08:44→22:18)
[2021-01-20] MEDS: metFORMIN 500 MG TAB PO SCH ×2 (08:45→22:17)
[2021-01-20] MEDS ORDERED: NON FORMULARY DRUG (Folic Acid [Folic Acid] 0.4 MG Tablet) PO SCH (09:00)
--- NOTE | 2021-01-20 09:23 | P.HPOR ---
History of Present Illness H&P Date: 01/20/21 This is a 75-year-old female who is admitted for right hip fracture. Patient reportedly fell on 01/19/2021 at her halfway. Patient was evaluated in the emergency room and x-rays revealed right intertrochanteric fracture. Patient is seen and evaluated at bedside today. Patient has history of dementia and is unable to give a history. Patient's past medical history is significant for hyperlipidemia, diabetes, GERD, paranoid schizophrenia, major depressive disorder, sleep apnea and hypertension. Review of Systems ROS unobtainable: due to mental status Past Medical History Past Medical History: Chest Pain / Angina, Dementia, Hyperlipidemia, Hypertension, Memory Impairment, Osteoarthritis (OA), Sleep Apnea/CPAP/BIPAP Additional Past Medical History / Comment(s): Frontal lobe impairment, confused most of the time, impulsive, NIDDM type II, UTIs, UTI with sepsis, protein calorie malnutrition, iron anemia, hypokalemia, vitamin D deficiency, constipation, diverticular disease, DDD, low back pain, occasional incontinence, ubaldo denied hx of asthma. History of Any Multi-Drug Resistant Organisms: None Reported Past Surgical History: Back Surgery Additional Past Surgical History / Comment(s): Colonoscopy Past Anesthesia/Blood Transfusion Reactions: No Reported Reaction Past Psychological History: Anxiety, Depression Smoking Status: Unknown if ever smoked Past Alcohol Use History: Occasional Past Drug Use History: None Reported - Past Family History Father Family Medical History: Cancer Additional Family Medical History / Comment(s): Ubaldo does not know type of cancer. Mother Additional Family Medical History / Comment(s): HEART DISEASE Medications and Allergies Home Medications Medication Instructions Recorded Confirmed Type Lactulose 10 gm PO BID@0900,209906/01/18 01/19/21 History Atorvastatin [Lipitor] 20 mg PO HS@209910/04/19 01/19/21 History metFORMIN HCL [Glucophage] 500 mg PO BID@0900,209910/04/19 01/19/21 History Metoprolol Tartrate [Lopressor] 12.5 mg PO BID@0900,209902/08/20 01/19/21 History Acetaminophen Tab [Tylenol Tab] 500 mg PO TID@0600,1400,2200 04/29/20 01/19/21 History Calcium Carb-Vit D 500Mg-5Mcg 1 tab PO BID@0900,2100 04/29/20 01/19/21 History [Oscal 500+D] HYDROcodone/APAP 5-325MG [[place] 1 tab PO TID PRN 04/29/20 01/19/21 History 5-325] buPROPion SR [Wellbutrin Sr] 100 mg PO DAILY@0900 04/29/20 01/19/21 History Cholecalciferol [Vitamin D3 (25 50 mcg PO DAILY@0900 07/24/20 01/19/21 History Mcg = 1000 Iu)] Clotrimazole/Betamethasone Dip 1 applic TOPICAL Q12H 07/24/20 01/19/21 History [Lotrisone Cream] Folic Acid 0.4 mg PO DAILY@89907/24/20 01/19/21 History Lactose-Reduced Food [Ensure Plus] 120 ml PO BID@0900,209907/24/20 01/19/21 History Allergies Allergy/AdvReac Type Severity Reaction Status Date / Time aspirin Allergy Mild Nausea Verified 01/19/21 21:20 codeine Allergy Mild Nausea Verified 01/19/21 21:20 Penicillins Allergy Unknown Unknown Verified 01/19/21 21:20 cod Allergy Severe Unknown Uncoded 01/19/21 21:20 Physical Examination Vital signs are stable. Patient is in no acute distress and is confused. The right lower extremity is shortened and externally rotated. Skin is intact. There is minimal swelling. No ecchymosis or erythema. The right lower extremity is warm and well perfused. Calf is soft and nontender to palpation. Sensation intact. Neurovascular status and circulatory status are intact. Exams of bilateral upper extremities and the left lower extremity within normal limits. Head is normocephalic and atraumatic. Results X-rays of the right hip and pelvis dated 01/19/2021 reveal an intertrochanteric fracture of the right femur. - Labs Labs: Abnormal Lab Results - Last 24 Hours (Table) 01/19/21 01/19/21 01/19/21 Range/Units 18:32 18:32 18:32 WBC 17.8 H (3.8-10.6) k/uL RBC 3.67 L (3.80-5.40) m/uL MCV 102.0 H (80.0-100.0) fL Neutrophils # 14.9 H (1.3-7.7) k/uL APTT 21.8 L (22.0-30.0) sec BUN 19 H (7-17) mg/dL Glucose 147 H (74-99) mg/dL Urine Appearance (Clear) Urine Protein (Negative) Urine Blood (Negative) Urine RBC (0-5) /hpf Urine WBC (0-5) /hpf Ur Squamous Epith Cells (0-4) /hpf Amorphous Sediment (None) /hpf Urine Mucus (None) /hpf 01/19/21 Range/Units 21:55 WBC (3.8-10.6) k/uL RBC (3.80-5.40) m/uL MCV (80.0-100.0) fL Neutrophils # (1.3-7.7) k/uL APTT (22.0-30.0) sec BUN (7-17) mg/dL Glucose (74-99) mg/dL Urine Appearance Turbid H (Clear) Urine Protein Trace H (Negative) Urine Blood Moderate H (Negative) Urine RBC 16 H (0-5) /hpf Urine WBC 11 H (0-5) /hpf Ur Squamous Epith Cells 9 H (0-4) /hpf Amorphous Sediment Moderate H (None) /hpf Urine Mucus Many H (None) /hpf H & H 01/19/21 Range/Units 18:32 Hgb 12.7 (11.4-16.0) gm/dL Hct 37.4 (34.0-46.0) % Coagulation 01/19/21 Range/Units 18:32 INR 1.0 (<1.2) Result Diagrams: 01/19/21 18:32 01/19/21 18:32 Assessment and Plan (1) Dementia Current Visit: Yes Status: Acute Code(s): F03.90 - UNSPECIFIED DEMENTIA WITHOUT BEHAVIORAL DISTURBANCE SNOMED Code(s): 23174813 (2) Fall Current Visit: Yes Status: Acute Code(s): W19.XXXA - UNSPECIFIED FALL, INITIAL ENCOUNTER SNOMED Code(s): 4439343 (3) Intertrochanteric fracture of right femur Current Visit: Yes Status: Acute Code(s): S72.141A - DISPLACED INTERTROCHANTERIC FRACTURE OF RIGHT FEMUR, INIT SNOMED Code(s): 482717534 Plan: 1. Patient is to be NPO. 2. Continue pain control. 3. Appreciate input from medicine. 4. Planning for closed reduction and intramedullary rodding of the right femur later today with Dr. Gagnon.
[2021-01-20 11:33] LABS: African American GFR (CKD) 104.8 (60.0-200.0); Anion Gap 9.2 mmol/L (4.00-12.00); Calcium 8.7 mg/dL (8.7-10.3); Carbon Dioxide 25.8 mmol/L (21.6-31.8); HGB 12.5 g/dL (12.0-15.0); MCH 34.5 pg (27.0-32.0); MCHC 32.1 g/dL (32.0-37.0); MCV 107.7 fL (80.0-97.0); Mean Platelet Volume 10.3 fL (9.5-12.2); Non-African American GFR(CKD) 90.4 (60.0-200.0); Platelet Count 333 X 10*3/uL (140-440); RBC 3.62 X 10*6/uL (4.10-5.20); RDW 13.7 % (11.5-14.5); WBC 13.71 X 10*3/uL (4.50-10.00)
[2021-01-20 12:31] LABS: Basophils # (A) 0.03 X 10*3/uL (0.00-0.10); Basophils % (A) 0.2 %; Eosinophils # (A) 0.25 X 10*3/uL (0.04-0.35); Eosinophils % (A) 1.8 %; Lymphocytes % (A) 15.3 %; Monocytes % (A) 7.3 %; Neutrophils # (A) 10.22 X 10*3/uL (1.80-7.70); Neutrophils % (A) 74.6 %
[2021-01-20 12:32] LABS: Acanthocytes 2+; Macrocytosis (M) 2+
[2021-01-20 12:37] VITALS: BMI 29.3
[2021-01-20] MEDS ORDERED: LACTATED RINGERS 1,000 ML IV ONE (16:52)
[2021-01-20] MEDS ORDERED: ONDANSETRON 4 MG/2 ML VIAL ONE (16:56)
[2021-01-20] MEDS ORDERED: ONDANSETRON 4 MG/2 ML VIAL IVP ONE (17:01)
[2021-01-20] MEDS ORDERED: DEXAMETHASONE SOD PHOSPHATE 4 MG/ML 1 ML VIAL IVP ONE (17:01)
--- NOTE | 2021-01-20 17:26 | PN ---
PROGRESS NOTE DATE OF SERVICE: 01/20/2021 This 75-year-old woman who was admitted with possible fall and acute hip fracture is scheduled to have surgery by Orthopedic surgery. No chest pain. No palpitations. Patient continues to be confused. PAST MEDICAL HISTORY: Reviewed. REVIEW OF SYMPTOMS: Could not be taken. CURRENT MEDICATIONS: Reviewed and include: Tylenol, Burt, Norvasc, Lipitor, Wellbutrin, heparin, Toradol, Cephulac. Doses are reviewed. PHYSICAL EXAMINATION: Patient is conscious, confused. Pulse 77, blood pressure 177/90, respiration 18, temperature is 98.8, pulse ox 93% on room air. HEENT: Conjunctivae normal. Neck: No JVD. Cardiovascular: S1, S2 muffled. Respirations: Breath sounds diminished in the bases. A few scattered rhonchi. Abdomen: Soft. Nontender. Legs: Status post fracture. LAB STUDIES: WBC 13.7. UA shows abnormal. ASSESSMENT: 1. Fall and acute right hip fracture for surgery. 2. Dementia. 3. Rule out urinary tract infection. 4. Increased WBC. 5. Increased MCV. 6. History of urinary tract infection previously. 7. Hypertension. 8. Hyperlipidemia. 9. History of degenerative joint disease. 10.History of sleep apnea. 11.History of protein calorie malnutrition. 12.History of vitamin D deficiency. 13.History of back surgery. 14.Anxiety, depression. 15.FULL CODE. RECOMMENDATIONS AND DISCUSSION: Recommend to continue current medications, management and symptomatic treatment. Patient is currently medically stable. Overall prognosis guarded. Patient is cleared for surgery. Otherwise, I would also recommend a urine culture. The patient had E coli from the previous UTI. See orders for details. DVT prophylaxis. MMODL / IJN: [id number] /
[2021-01-20] MEDS ORDERED: SUCCINYLCHOLINE CHLORIDE 100 MG/5 ML SYR IV ONE (17:50)
[2021-01-20] MEDS ORDERED: KETAMINE 10 MG/ML 20 ML VIAL ONE (17:50)
[2021-01-20] MEDS ORDERED: ROCURONIUM 10 MG/ML (5 ML VIAL) IV ONE (17:50)
[2021-01-20] MEDS ORDERED: GLYCOPYRROLATE 0.2 MG/ML 2 ML VIAL ONE (17:50)
[2021-01-20] MEDS ORDERED: NEOSTIGMINE 1 MG/ML 10 ML VIAL ONE (17:50)
[2021-01-20] MEDS ORDERED: fentaNYL (PF) 50 MCG/ML 2 ML AMP ONE (17:50)
[2021-01-20] MEDS ORDERED: PROPOFOL 10 MG/ML 20 ML VIAL IV ONE (17:50)
[2021-01-20] MEDS ORDERED: LIDOCAINE 1% INJ 10MG/ML (20 ML MDV) ONE (17:50)
[2021-01-20] MEDS ORDERED: SODIUM CHLORIDE 0.9% 100 ML with ceFAZolin 2,000 MG IV ONE ×2 (17:53)
[2021-01-20] MEDS ORDERED: ceFAZolin 1,000 MG in SODIUM CHLORIDE 0.9% 1,000 ML IRRIGATION ONE (18:35)
[2021-01-20] MEDS ORDERED: NALOXONE 0.4 MG/ML 1 ML VIAL IV PRN (19:17)
--- NOTE | 2021-01-20 19:33 | XR ---
EXAMINATION TYPE: XR Hip Complete RT DATE OF EXAM: 01/20/2021 COMPARISON: NONE HISTORY: Hip surgery TECHNIQUE: 2 views FINDINGS: 2 fluoroscopic images were obtained at show placement of intramedullary kaden and transverse screw fixing the intertrochanteric proximal right femur. Fragments appear in anatomic position. IMPRESSION: No complicating process seen.
[2021-01-20] MEDS ORDERED: hydrALAZINE HCL 20 MG/ML 1 ML VIAL ONE (19:54)
[2021-01-20] MEDS ORDERED: hydrALAZINE HCL 20 MG/ML 1 ML VIAL IVP ONE (19:55)
[2021-01-20] MEDS: LACTATED RINGERS 1,000 ML IV SCH (20:14)
[2021-01-20 20:34] LABS: Basophils # (A) 0.1 k/uL (0-0.2); Basophils % (A) 0 %; Eosinophils # (A) 0.1 k/uL (0-0.7); Eosinophils % (A) 0 %; HCT 37.4 % (34.0-46.0); Lymphocytes # (A) 1.2 k/uL (1.0-4.8); Lymphocytes % (A) 4 %; MCH 34.8 pg (25.0-35.0); MCHC 32.1 g/dL (31.0-37.0); Macrocytosis Marked; Mean Platelet Volume 7.3; Monocytes # (A) 0.3 k/uL (0-1.0); Monocytes % (A) 1 %; Neutrophils # (A) 25.6 k/uL (1.3-7.7); Neutrophils % (A) 94 %; Platelet Count 320 k/uL (150-450); RBC 3.44 m/uL (3.80-5.40); RDW 13.6 % (11.5-15.5); WBC 27.3 k/uL (3.8-10.6)
[2021-01-20 20:37] LABS: MCV 108.7 fL (80.0-100.0)
[2021-01-20] MEDS: SENNOSIDES-DOCUSATE SODIUM 1 EACH TAB PO SCH (22:17)
[2021-01-20] MEDS: ATORVASTATIN 20 MG TAB PO SCH (22:17)
[2021-01-20] MEDS: amLODIPine 10 MG TAB PO SCH (22:17)
[2021-01-20] MEDS: KETOROLAC 15 MG/ML 1 ML VIAL IVP PRN (22:47)
[2021-01-21] MEDS: SODIUM CHLORIDE 0.9% 1,000 ML IV SCH ×2 (01:02→18:34)
[2021-01-21] MEDS: KETOROLAC 15 MG/ML 1 ML VIAL IVP PRN ×2 (05:30→11:23)
[2021-01-21] MEDS: LACTATED RINGERS 1,000 ML IV SCH (05:32)
--- NOTE | 2021-01-21 08:34 | FL ---
Fluoroscopy HISTORY: Right hip fracture 75 seconds fluoroscopy time supplied to the referring clinician. 2 intraoperative C-arm images docum ent the procedure. See dictated report from orthopedic surgery.
[2021-01-21] MEDS ORDERED: ASPIRIN 81 MG PO SCH ×2 (09:00→21:00)
[2021-01-21] MEDS: buPROPion SR 100 MG TABLET.ER PO SCH (09:43)
[2021-01-21] MEDS: metFORMIN 500 MG TAB PO SCH ×2 (09:43→21:23)
[2021-01-21] MEDS: METOPROLOL TARTRATE 12.5 MG TAB PO SCH ×2 (09:43→21:23)
[2021-01-21] MEDS: PANTOPRAZOLE 40 MG TABLET PO SCH (09:43)
[2021-01-21] MEDS: HEPARIN SODIUM,PORCINE/PF 5,000 UNIT/0.5 ML SYRINGE SQ SCH ×2 (09:43→21:22)
[2021-01-21] MEDS: LACTULOSE 200 GM/300 ML (FROM 1/2 GAL JUG) PO SCH ×2 (09:44→21:26)
--- NOTE | 2021-01-21 11:19 | P.PN ---
Subjective Progress Note Date: 01/21/21 This patient is a 75- year old female who is status-post closed reduction and intramedullary rodding of the right femur on 01/20/[address] Gagnon. Today is post-operative day #1. Patient is seen and examined bedside this morning. She is currently up at the bedside with physical therapy. She is not complaining of pain at this time. She appears comfortable. She has no complaints. Vital signs stable. Objective - Vital Signs Vital signs: Vital Signs Temp 97.9 F 01/21/21 07:56 Pulse 63 01/21/21 07:56 Resp 17 01/21/21 07:56 BP 138/81 01/21/21 07:56 Pulse Ox 96 01/21/21 07:56 Intake & Output 01/20/21 01/21/21 01/21/21 18:59 06:59 18:59 Intake Total 701 0 Output Total 900 900 Balance -199 -900 Weight 80.014 kg Intake: IV 701 0 Output: Urine 800 900 Uretheral ([place]) 400 Estimated Blood Loss 100 Other: Voiding Method Indwelling Catheter Indwelling Catheter Indwelling Catheter - Exam On examination, patient is sitting up in bed with physical therapy at bedside. On inspection of the right hip, there are clean, dry, intact dressings. No surrounding erythema, ecchymosis. No signs of infection. The thigh is soft and compressible. Motor and sensory function intact of the right lower extremity. Dorsalis pedis pulse +2, the right lower extremity is warm and well perfused. Calf is soft and non-tender. - Labs CBC & Chem 7: 01/20/21 20:06 01/20/21 07:27 Labs: Abnormal Lab Results - Last 24 Hours (Table) 01/20/21 01/20/21 01/20/21 Range/Units 07:27 07:27 20:06 WBC 13.71 H 27.3 H (4.50-10.00) X 10*3/uL RBC 3.62 L 3.44 L (4.10-5.20) X 10*6/uL MCV 107.7 H 108.7 H D (80.0-97.0) fL MCH 34.5 H (27.0-32.0) pg Immature Gran # 0.11 H (0.00-0.04) X 10*3/uL Neutrophils # 10.22 H 25.6 H (1.80-7.70) X 10*3/uL Macrocytosis Marked A BUN/Creatinine Ratio 30.00 H (12.00-20.00) Ratio Glucose 114 H (70-110) mg/dL Assessment and Plan Assessment: Status-post closed reduction and intramedullary rodding of the right femur on 01/20/[address] Gagnon. Post operative day #1. Plan: - Toe touch weight bearing operative leg. Up with assistance, up with a walker. - Physical therapy for gait and balance training. - Pain management as needed. - Aspirin 81mg BID for DVT prophylaxis. - Post operative antibiotics complete. - Medical management per internal medicine team. - Plan to discharge to [facility].
[2021-01-21] MEDS ORDERED: QUEtiapine 25 MG TAB PO PRN (11:40)
[2021-01-21 11:58] LABS: Appearance,Urine Clear (Clear); Bacteria,Urine Rare /hpf; Bilirubin,Urine Negative (Negative); Blood,Urine Small (Negative); Color,Urine Light Yellow; Glucose,Urine (UA) Negative (Negative); Ketones,Urine Negative (Negative); Leukocyte Esterase,Urine Negative (Negative); Mucus,Urine Rare /hpf; Nitrite,Urine Negative (Negative); Protein,Urine Negative (Negative); RBC,Urine 2 /hpf (0-5); Specific Gravity,Urine 1.007 (1.001-1.035); Squamous Epithelial Cell,Urine <1 /hpf (0-4); Urobilinogen,Urine <2.0 mg/dL (<2.0); WBC,Urine 2 /hpf (0-5)
--- NOTE | 2021-01-21 12:44 | P.PN ---
Subjective 75-year-old female with advanced dementia and resident of longterm came in for hip fracture and patient underwent right hip arthroplasty. Overall patient the mental status is at her baseline overall clinically stable patient has advanced dementia, not agitated at this point of time. Patient had leukocytosis urine is a contaminated urine sample there is no fever at in see any clear source of infection at this time we will obtain a chest x-ray urine culture blood culture urine analysis will be repeated. Patient will not be started on any antibiotic had leukocytosis continued to get worse baby seconded to surgery. We'll repeat CBC again tomorrow. REVIEW OF SYSTEMS: Unable to obtain due to her clinical condition All inpatient medications were reviewed and appropriate changes in these medications as dictated in the interval history and assessment and plan. PHYSICAL EXAMINATION: GENERAL: The patient is alert and oriented x0, confused secondary to dementia and this is her baseline which is her baseline, not in any acute distress. Well developed, well nourished. HEENT: Pupils are round and equally reacting to light. EOMI. No scleral icterus. No conjunctival pallor. Normocephalic, atraumatic. No pharyngeal erythema. No thyromegaly. CARDIOVASCULAR: S1 and S2 present. No murmurs, rubs, or gallops. PULMONARY: Chest is clear to auscultation, no wheezing or crackles. ABDOMEN: Soft, nontender, nondistended, normoactive bowel sounds. No palpable organomegaly. MUSCULOSKELETAL: Deferred to orthopedic surgery EXTREMITIES: No cyanosis, clubbing, or pedal edema. NEUROLOGICAL: Limited but doesn't appear to have any new focal deficits SKIN: No rashes. Assessment and plan IV leukocytosis: Patient will be worked out for sepsis although there is no clear evidence of sepsis at this time patient will not require any antibiotics will monitor overnight clinically and repeat CBC tomorrow -Right hip arthroplasty due to prophylaxis as per orthopedic surgery -No evidence of urinary tract infection patient had a contaminated urine sample repeat UA will be obtained -Hypertension -Hyperlipidemia -Sleep apnea -Depression -Advanced dementia DVT prophylaxis: Presently on heparin subcutaneous Objective - Vital Signs Vital signs: Vital Signs Temp 97.9 F 01/21/21 07:56 Pulse 63 01/21/21 07:56 Resp 17 01/21/21 07:56 BP 138/81 01/21/21 07:56 Pulse Ox 96 01/21/21 07:56 Intake & Output 01/20/21 01/21/21 01/21/21 18:59 06:59 18:59 Intake Total 701 0 Output Total 900 900 Balance -199 -900 Weight 80.014 kg Intake: IV 701 0 Output: Urine 800 900 Uretheral ([place]) 400 Estimated Blood Loss 100 Other: Voiding Method Indwelling Catheter Indwelling Catheter Indwelling Catheter - Labs CBC & Chem 7: 01/20/21 20:06 01/20/21 07:27 Labs: Abnormal Lab Results - Last 24 Hours (Table) 01/20/21 01/21/21 Range/Units 20:06 11:38 WBC 27.3 H (3.8-10.6) k/uL RBC 3.44 L (3.80-5.40) m/uL MCV 108.7 H D (80.0-100.0) fL Neutrophils # 25.6 H (1.3-7.7) k/uL Macrocytosis Marked A Urine Blood Small H (Negative) Urine Bacteria Rare H (None) /hpf Urine Mucus Rare H (None) /hpf
--- NOTE | 2021-01-21 13:24 | XR ---
EXAMINATION TYPE: XR chest 1V portable DATE OF EXAM: 01/21/2021 COMPARISON: Chest x-ray 01/19/2021 HISTORY: Shortness of breath TECHNIQUE: Single frontal view of the chest is obtained. FINDINGS: Bandlike areas of increased attenuation are present at the lung bases, right hilar region. Aorta is dense and possibly tortuous and ectatic, patient is rotated. Bone mineralization is reduced . There is no evident pneumothorax or pleural effusion. Cardiac mediastinal silhouette shows a stable appearance, possible borderline enlarged heart. Exam is expiratory. IMPRESSION: Probable atelectasis or scarring. Borderline heart size may be accentuated by technique, possible aortic ectasia.
[2021-01-21] MEDS: amLODIPine 10 MG TAB PO SCH (21:23)
[2021-01-21] MEDS: ATORVASTATIN 20 MG TAB PO SCH (21:23)
[2021-01-21] MEDS: SENNOSIDES-DOCUSATE SODIUM 1 EACH TAB PO SCH (21:23)
[2021-01-22] MEDS: metFORMIN 500 MG TAB PO SCH ×2 (00:06→08:37)
[2021-01-22] MEDS: METOPROLOL TARTRATE 12.5 MG TAB PO SCH ×2 (00:06→08:37)
[2021-01-22] MEDS: ATORVASTATIN 20 MG TAB PO SCH (00:06)
[2021-01-22] MEDS: amLODIPine 10 MG TAB PO SCH (00:06)
[2021-01-22] MEDS: SENNOSIDES-DOCUSATE SODIUM 1 EACH TAB PO SCH (00:06)
[2021-01-22] MEDS: SODIUM CHLORIDE 0.9% 1,000 ML IV SCH (03:47)
[2021-01-22] MEDS: HEPARIN SODIUM,PORCINE/PF 5,000 UNIT/0.5 ML SYRINGE SQ SCH (08:36)
[2021-01-22] MEDS: buPROPion SR 100 MG TABLET.ER PO SCH (08:37)
[2021-01-22] MEDS: PANTOPRAZOLE 40 MG TABLET PO SCH (08:37)
[2021-01-22] MEDS: LACTULOSE 200 GM/300 ML (FROM 1/2 GAL JUG) PO SCH (08:51)
[2021-01-22 09:52] LABS: HCT 32.7 % (37.2-46.3); HGB 10.4 g/dL (12.0-15.0); MCH 34.8 pg (27.0-32.0); MCHC 31.8 g/dL (32.0-37.0); MCV 109.4 fL (80.0-97.0); Mean Platelet Volume 10.3 fL (9.5-12.2); Platelet Count 274 X 10*3/uL (140-440); RBC 2.99 X 10*6/uL (4.10-5.20); RDW 13.6 % (11.5-14.5); WBC 13.62 X 10*3/uL (4.50-10.00)
--- NOTE | 2021-01-22 10:51 | P.PN ---
Subjective Progress Note Date: 01/22/21 75-year-old female with advanced dementia and resident of group home came in for hip fracture and patient underwent right hip arthroplasty. Overall patient the mental status is at her baseline overall clinically stable patient has advanced dementia, not agitated at this point of time. Patient had leukocytosis urine is a contaminated urine sample there is no fever at in see any clear source of infection at this time we will obtain a chest x-ray urine culture blood culture urine analysis will be repeated. Patient will not be started on any antibiotic had leukocytosis continued to get worse baby seconded to surgery. We'll repeat CBC again tomorrow. 01/22/2021 Patient is seen in follow-up this morning with no acute overnight issues. White blood count trending down and is 13.6 to and hemoglobin is stable at 10.4. Urinalysis is negative and chest x-ray showing probable atelectasis or scarring. Recommend to continue with incentive spirometer at least 10 times every hour while awake with encouragement as patient continues to be confused which is her baseline. Patient is afebrile. REVIEW OF SYSTEMS: Unable to obtain due to her clinical condition All inpatient medications were reviewed and appropriate changes in these medications as dictated in the interval history and assessment and plan. PHYSICAL EXAMINATION: GENERAL: The patient is alert and oriented x0, confused secondary to dementia and this is her baseline , not in any acute distress. Well developed, well nourished. HEENT: Pupils are round and equally reacting to light. EOMI. No scleral icterus. No conjunctival pallor. Normocephalic, atraumatic. No pharyngeal erythema. No thyromegaly. CARDIOVASCULAR: S1 and S2 present. No murmurs, rubs, or gallops. PULMONARY: Chest is clear to auscultation, no wheezing or crackles. ABDOMEN: Soft, nontender, nondistended, normoactive bowel sounds. No palpable organomegaly. MUSCULOSKELETAL: Deferred to orthopedic surgery EXTREMITIES: No cyanosis, clubbing, or pedal edema. NEUROLOGICAL: Limited but doesn't appear to have any new focal deficits SKIN: No rashes. Assessment and plan -leukocytosis: Patient underwent sepsis workup which has been negative and white blood count is trending down at 13.62, she remains afebrile and chest x-ray showing atelectasis and recommend continuing with incentive spirometer with encouragement -Right hip arthroplasty DVT prophylaxis as per orthopedic surgery -No evidence of urinary tract infection patient had a contaminated urine sample, repeat urinalysis is negative -Hypertension -Hyperlipidemia -Sleep apnea -Depression -Advanced dementia -DVT prophylaxis: Presently on heparin subcutaneous Plan: Continue with current medications. Patient blood pressure slightly elevated will continue with amlodipine 10 mg at night. Sepsis workup has been negative and patient will not require any antibiotics on discharge. Continue with appropriate home medications. DVT and pain management prophylaxis per primary service. Will continue to follow during hospitalization with orthopedic surgery. Plan is to return to [facility] as she is a resident there. Recommend to continue with incentive spirometer at least 10 times every hour while awake and patient needs encouragement to do so. Thank you for this consultation. Objective - Vital Signs Vital signs: Vital Signs Temp 98.0 F 01/22/21 07:41 Pulse 83 01/22/21 07:41 Resp 17 01/22/21 07:41 BP 169/84 01/22/21 07:41 Pulse Ox 96 01/22/21 07:41 Intake & Output 01/21/21 01/22/21 01/22/21 18:59 06:59 18:59 Intake Total 300 Output Total 1675 Balance -1675 300 Intake: Intake, IV Titration 300 Amount Sodium Chloride 0.9% 1, 300 000 ml @ 75 mls/hr IV . [id number] [facility] Rx#:[id number] Output: Urine 1675 Other: Voiding Method Indwelling Catheter Indwelling Catheter - Labs CBC & Chem 7: 01/22/21 04:50 01/20/21 07:27 Labs: Abnormal Lab Results - Last 24 Hours (Table) 01/21/21 01/22/21 Range/Units 11:38 04:50 WBC 13.62 H (4.50-10.00) X 10*3/uL RBC 2.99 L (4.10-5.20) X 10*6/uL Hgb 10.4 L (12.0-15.0) g/dL Hct 32.7 L (37.2-46.3) % MCV 109.4 H (80.0-97.0) fL MCH 34.8 H (27.0-32.0) pg MCHC 31.8 L (32.0-37.0) g/dL Urine Blood Small H (Negative) Urine Bacteria Rare H (None) /hpf Urine Mucus Rare H (None) /hpf Microbiology - Last 24 Hours (Table) 01/20/21 20:06 Blood Culture - Preliminary Blood No Growth after 24 hours
--- NOTE | 2021-01-22 11:57 | P.PN ---
Subjective Progress Note Date: 01/22/21 This patient is a 75- year old female who is status-post closed reduction and intramedullary rodding of the right femur on 01/20/[address] Gagnon. Today is post-operative day #2. Patient is seen and examined bedside this morning. Patient is confused, which is her baseline. She has no complaints or concerns today. There are no complaints of pain. Patient's white blood cell count has trended down from 27.3 to 13.62 today. Sepsis workup has been negative per internal medicine. Patient is afebrile. Vital signs stable. Objective - Vital Signs Vital signs: Vital Signs Temp 98.0 F 01/22/21 07:41 Pulse 83 01/22/21 07:41 Resp 17 01/22/21 07:41 BP 169/84 01/22/21 07:41 Pulse Ox 96 01/22/21 07:41 Intake & Output 01/21/21 01/22/21 01/22/21 18:59 06:59 18:59 Intake Total 300 Output Total 1675 Balance -1675 300 Intake: Intake, IV Titration 300 Amount Sodium Chloride 0.9% 1, 300 000 ml @ 75 mls/hr IV . [id number] [facility] Rx#:[id number] Output: Urine 1675 Other: Voiding Method Indwelling Catheter Indwelling Catheter Indwelling Catheter - Exam On examination, patient is lying in bed in no apparent distress. On inspection of the right hip, there are clean, dry, intact dressings. No surrounding erythema, ecchymosis. No signs of infection. The thigh is soft and compressible. Motor and sensory function intact of the right lower extremity. Dorsalis pedis pulse +2, the right lower extremity is warm and well perfused. Calf is soft and non-tender. - Labs CBC & Chem 7: 01/22/21 04:50 01/20/21 07:27 Labs: Abnormal Lab Results - Last 24 Hours (Table) 01/21/21 01/22/21 Range/Units 11:38 04:50 WBC 13.62 H (4.50-10.00) X 10*3/uL RBC 2.99 L (4.10-5.20) X 10*6/uL Hgb 10.4 L (12.0-15.0) g/dL Hct 32.7 L (37.2-46.3) % MCV 109.4 H (80.0-97.0) fL MCH 34.8 H (27.0-32.0) pg MCHC 31.8 L (32.0-37.0) g/dL Urine Blood Small H (Negative) Urine Bacteria Rare H (None) /hpf Urine Mucus Rare H (None) /hpf Microbiology - Last 24 Hours (Table) 01/20/21 20:06 Blood Culture - Preliminary Blood No Growth after 24 hours Assessment and Plan Assessment: Status-post closed reduction and intramedullary rodding of the right femur on 01/20/[address] Gagnon. Post operative day #2. Plan: - Toe touch weight bearing operative leg. Up with assistance, up with a walker. - Physical therapy for gait and balance training. - Pain management as needed. - Aspirin 81mg BID for DVT prophylaxis. - Post operative antibiotics complete. - Medical management per internal medicine team. - Plan to discharge to [facility] when medically cleared.
[2021-01-22 14:26] VITALS: BP 188/84; PULSE 84; RESP 19; TEMP 99.1
--- NOTE | 2021-01-22 16:08 | P.DS ---
Providers Date of admission: 01/19/21 20:00 Expected date of discharge: 01/22/21 Attending physician: Allan Gagnon Consults: 01/19/21 19:59 Consult Physician Stat Consulting Provider: Aster Edwards Consult Reason/Comments: medical management Do you want consulting provider notified?: Already Contacted Primary care physician: Luis [place] Hospital Course: This is a 75-year-old female who is admitted to [facility] sustaining injury to the right hip. X-rays in the emergency department revealed an intertrochanteric fracture of the right hip. She is admitted to our service for surgical intervention and care. Patient was taken to surgery for operative fixation of her right hip with IM kaden on 01/20/[address] Gagnon. The procedure was performed without complication or sequelae. The patient is doing fairly well postoperatively. Vital signs and labs are stable on postoperative day #2. Patient was examined bedside today. Inspection reveals a surgical wound on the right hip, with no active bleeding or drainage. Neurovascular status is intact throughout the right lower extremity with motor and sensation fully intact. Calf is soft and nontender. 2+ dorsalis pedis pulse and a brisk capillary refill is present. Patient is discharged back to [facility] in good condition, pending medical clearance. Patient will follow-up with in the office in 2 weeks. Please see med rec for accurate list of discharge medication. Patient Condition at Discharge: Serious Plan - Discharge Summary Discharge Rx Participant: No New Discharge Prescriptions: New QUEtiapine [SEROquel] 12.5 mg PO HS PRN tab PRN Reason: Agitation Or Acute Anxiety amLODIPine [Norvasc] 10 mg PO HS tab Sennosides-Docusate Sodium [Senokot-S] 2 each PO HS tab Apixaban [Eliquis] 2.5 mg PO BID 30 Days #60 tab Continue Lactulose 10 gm PO BID@0900,2100 metFORMIN HCL [Glucophage] 500 mg PO BID@0900,2100 Atorvastatin [Lipitor] 20 mg PO HS@2099 Metoprolol Tartrate [Lopressor] 12.5 mg PO BID@0900,2100 Acetaminophen Tab [Tylenol] 500 mg PO TID@0600,1400,2200 HYDROcodone/APAP 5-325MG [[place] 5-325] 1 tab PO TID PRN PRN Reason: Pain Calcium Carb-Vit D 500Mg-5Mcg [Oscal 500+D 5 Mcg (200 Iu)] 1 tab PO BID@899,2099 buPROPion SR [Wellbutrin SR] 100 mg PO DAILY@0900 Cholecalciferol [Vitamin D3 (25 Mcg = 1000 Iu)] 50 mcg PO DAILY@0900 Clotrimazole/Betamethasone Dip [Lotrisone Cream] 1 applic TOPICAL Q12H Folic Acid 0.4 mg PO DAILY@0900 Lactose-Reduced Food [Ensure Plus] 120 ml PO BID@0900,2099 Discharge Medication List Lactulose 10 gm PO BID@09,209906/01/18 [History] Atorvastatin [Lipitor] 20 mg PO HS@209910/04/19 [History] metFORMIN HCL [Glucophage] 500 mg PO BID@0900,209910/04/19 [History] Metoprolol Tartrate [Lopressor] 12.5 mg PO BID@0900,209902/08/20 [History] Acetaminophen Tab [Tylenol] 500 mg PO TID@0600,1400,2200 04/29/20 [History] Calcium Carb-Vit D 500Mg-5Mcg [Oscal 500+D 5 Mcg (200 Iu)] 1 tab PO BID@0900,209904/29/20 [History] HYDROcodone/APAP 5-325MG [[place] 5-325] 1 tab PO TID PRN 04/29/20 [History] buPROPion SR [Wellbutrin SR] 100 mg PO DAILY@0900 04/29/20 [History] Cholecalciferol [Vitamin D3 (25 Mcg = 1000 Iu)] 50 mcg PO DAILY@0900 07/24/20 [History] Clotrimazole/Betamethasone Dip [Lotrisone Cream] 1 applic TOPICAL Q12H 07/24/20 [History] Folic Acid 0.4 mg PO DAILY@0900 07/24/20 [History] Lactose-Reduced Food [Ensure Plus] 120 ml PO BID@0900,209907/24/20 [History] Apixaban [Eliquis] 2.5 mg PO BID 30 Days #60 tab 01/22/21 [Rx] QUEtiapine [SEROquel] 12.5 mg PO HS PRN tab 01/22/21 [Rx] Sennosides-Docusate Sodium [Senokot-S] 2 each PO HS tab 01/22/21 [Rx] amLODIPine [Norvasc] 10 mg PO HS tab 01/22/21 [Rx] Follow up Appointment(s)/Referral(s): Britt Macias PAC [PHYSICIAN DUTY OFFICER] - 10 Days Luis Wan MD [Primary Care Provider] - 1-2 days Activity/Diet/Wound Care/Special Instructions: Keep Optifoam dressing intact for 10 days. Toe touch weight bearing operative leg with walker. Eliquis for DVT prophylaxis. Tylenol for pain control. Follow-up in the office in 10 days with Britt Macias PA-C. Call the office with any questions or concerns, Discharge Disposition: TRANSFER TO SNF/ECF
--- NOTE | 2021-01-27 10:09 | P.OP ---
Date of Procedure: 01/20/21 Procedure(s) Performed: PREOPERATIVE DIAGNOSIS: Right hip intertrochanteric/subtrochanteric fracture. POSTOPERATIVE DIAGNOSIS: Right hip intertrochanteric/subtrochanteric fracture. OPERATION: Right hip intertrochanteric/subtrochanteric fracture closed reduction and intramedullary nailing using long Synthes IT nail. BRAIDER SETTER: Drea Kramer PA-C (assistance with: Patient positioning, retraction, exposure, reduction, fixation, irrigation, hemostasis, closure, dressing) ANESTHESIA: General ESTIMATED BLOOD LOSS: 100 mL. SPECIMENS REMOVED: None COMPLICATIONS: None OPERATIVE FINDINGS: See below INDICATIONS: Anabelle is a 75 year old female with a history of falling and sustaining a fracture of right hip. The fracture is a comminuted fracture involving the intertrochanteric and subtrochanteric regions of the proximal femur. The fracture is displaced and the patient is in need of surgical fixation. The patient wishes to proceed with the operation after explanation of the steps of the procedure as well as potential risks and complications. These have been explained as being inclusive of, but not limited to: Bleeding, infection, scarring, discomfort, blood vessel and/or nerve damage, malunion, nonunion, blood clot, pulmonary embolism, need for further surgery, gait disturbance, , and other risks. The consent form has been authorized. PROCEDURE: After appropriate consent was obtained, the patient was taken to the operating room and placed in supine position. [Spinal] anesthetic was administered and after confirmation of adequate anesthesia, the patient was carefully placed in the supine position on the operating room table in the fracture table. The patient was placed up against a well-padded peroneal post. Care was taken to make sure about that all pressure points were adequately padded. The affected leg was placed in boot traction and the unaffected leg was placed in a well leg robbins. Using gentle longitudinal distraction as well as adduction and internal rotation, the fracture was reduced as assessed by AP and lateral C-arm imaging. This included a combination of longitudinal distraction with the fracture table frame, rotation both internally and externally until a satisfactory rotational alignment was achieved, and manual manipulation at the f racture site through the skin. Once a satisfactory reduction had been obtained, the thigh was prepped and draped in the usual aseptic fashion using ChloraPrep. Ioban drape was used for the case and the patient received intravenous antibiotics prior to incision. The incision was then created with a #10 blade just proximal to the greater trochanter laterally. It was carried down through skin into the subcutaneous tissues and through fascia. Hemostasis was obtained using electrocautery. The tip of the greater trochanter was palpated and a guide pin was placed at the tip and directed into the femoral shaft as assessed with C-arm imaging. Once optimal pin position had been obtained, a 17 mm reamer was used over the guide pin to create a path for the IT nail. A long IT nail was selected as the fracture extended below the lesser trochanter. Measurements were taken for size of nail. A long guide pin was then placed into the medullary canal of the femur and reaming was performed to size 12 mm. IT nail selected was assembled to the insertion jig on the back table and bushings were checked for accuracy. The nail was then inserted using gentle mallet taps until it was fully deployed. During insertion, the fracture was attempted to be held in anatomic alignment with the use of manual pressure externally. The amount of rotation of the implant was assessed based on the amount of anteversion of the femoral neck. This was rotated to match the patient's femoral neck anteversion and the helical blade guide was placed through the insertion jig and through an incision on the lateral side of the thigh more distal than the first. Once this guide was placed against the lateral cortex of the femur, a guide pin was drilled into the central region of the femoral head and neck as based on AP and lateral C-arm imaging. Once optimal pin position had been obtained, the guidewire was measured and appropriately sized helical blade was selected. The path for the helical blade was prepared using a tapered reamer. The helical blade was then inserted using gentle mallet taps along the guidewire until it was fully deployed. There was no displacement of the fracture during this step. The anti-rotation screw was locked down and the insertion apparatus for the helical blade was removed. The guide pin was then removed. Traction was then removed from the leg and the distal interlocks were placed using standard freehand technique. Finally, the insertion jig for the nail was removed and final C-arm images were taken and saved in both AP and lateral planes. The final x-rays showed satisfactory positioning of the implant and satisfactory reduction of the fracture. The top of the nail was plugged with a small quantity of bone wax and the incisions were then thoroughly irrigated with normal saline. Final hemostasis was obtained using electrocautery and closure of the fascia was performed using 0-Vicryl suture. 2-0 Vicryl suture was used in the subcutaneous tissues and ceicle were used for the skin. Sterile dressing was then applied and the patient was carefully removed from the fracture table frame and placed onto the stretcher. The patient tolerated the procedure well. There were no complications and approximately [] mL of blood loss. The patient was then subsequently transferred to recovery room in stable condition. Sponge and needle counts were correct.
== END 2021-01-22 18:04 | DRG 481 ==
LOC: EC 17:00 → 4SSUR 20:00
PROVIDERS: ADMIT Orthopaedic Surgery; ATTEND Orthopaedic Surgery
PROC: 0QSB36Z Reposition Right Lower Femur with Intramedullary Internal Fixation Device, Percutaneous Approach (ICD-10-PCS; principal; 2021-01-20 10:20)
DX: S72.141A Displaced intertrochanteric fracture of right femur, initial encounter for closed fracture (principal); F20.0 Paranoid schizophrenia; J98.11 Atelectasis; E46 Unspecified protein-calorie malnutrition; E11.9 Type 2 diabetes mellitus without complications; E78.5 Hyperlipidemia, unspecified; F03.90 Unspecified dementia, unspecified severity, without behavioral disturbance, psychotic disturbance, mood disturbance, and anxiety; F32.9 Major depressive disorder, single episode, unspecified; G47.30 Sleep apnea, unspecified; I10 Essential (primary) hypertension; M19.90 Unspecified osteoarthritis, unspecified site; W18.30XA Fall on same level, unspecified, initial encounter; Y92.129 Unspecified place in nursing home as the place of occurrence of the external cause; Z79.84 Long term (current) use of oral hypoglycemic drugs; Z79.899 Other long term (current) drug therapy; Z87.440 Personal history of urinary (tract) infections; E55.9 Vitamin D deficiency, unspecified; K59.00 Constipation, unspecified; R32 Unspecified urinary incontinence; F41.9 Anxiety disorder, unspecified; Z68.29 Body mass index [BMI] 29.0-29.9, adult; Z98.890 Other specified postprocedural states; Z88.6 Allergy status to analgesic agent; Z88.5 Allergy status to narcotic agent; Z88.0 Allergy status to penicillin
CPT/HCPCS: 36415; 70450; 71045; 73502; 80048; 80053; 81001; 85025; 85027; 85610; 85730; 86850; 86900; 86901; 87040; 96374; 99285

== ENCOUNTER 2021-03-12 20:11 | Emergency (ER) | payer MEDICARE, OTHER ==
[2021-03-12 20:24] VITALS: TEMP 97.7
--- NOTE | 2021-03-12 20:55 | ED ---
Fall HPI - General Chief Complaint: Fall Stated Complaint: Fall Time Seen by Provider: 03/12/21 20:15 Source: EMS Mode of arrival: EMS Limitations: altered mental status - History of Present Illness Initial Comments: This a 75-year-old female presents emergency Department via EMS from [facility] on the [place] chief complaint of a fall. Patient reportedly had a fallthat some bruising above her right eye. Patient is awake alert and orientated times one unable to write much information patient's unknown blood thinners. No obvious injury as far as extremities no other complaints. - Related Data Home Medications Medication Instructions Recorded Confirmed Lactulose 10 gm PO BID@00,209906/01/18 03/12/21 Atorvastatin [Lipitor] 20 mg PO HS@209910/04/19 03/12/21 metFORMIN HCL [Glucophage] 500 mg PO BID@00,209910/04/19 03/12/21 Metoprolol Tartrate [Lopressor] 12.5 mg PO BID@00,209902/08/20 03/12/21 Acetaminophen Tab [Tylenol] 500 mg PO TID@0600,1400,2200 04/29/20 03/12/21 Calcium Carb-Vit D 500Mg-5Mcg 1 tab PO BID@00,209904/29/20 03/12/21 [Oscal 500+D 5 Mcg (200 Iu)] HYDROcodone/APAP 5-325MG [[place] 1 tab PO Q8H PRN 04/29/20 03/12/21 5-325] buPROPion SR [Wellbutrin SR] 100 mg PO DAILY@89904/29/20 03/12/21 Cholecalciferol [Vitamin D3 (25 50 mcg PO DAILY@89907/24/20 03/12/21 Mcg = 1000 Iu)] Folic Acid 0.4 mg PO DAILY@89907/24/20 03/12/21 Lactose-Reduced Food [Ensure Plus] 120 ml PO BID@899,209907/24/20 03/12/21 Apixaban [Eliquis] 2.5 mg PO BID@0900,209903/12/21 03/12/21 Sennosides-Docusate Sodium 2 tab PO HS@209903/12/21 03/12/21 [Senokot-S] amLODIPine [Norvasc] 10 mg PO HS@2100 03/12/21 03/12/21 Allergies Allergy/AdvReac Type Severity Reaction Status Date / Time aspirin Allergy Mild Nausea Verified 03/12/21 20:19 codeine Allergy Mild Nausea Verified 03/12/21 20:19 Penicillins Allergy Unknown Unknown Verified 03/12/21 20:19 cod Allergy Severe Unknown Uncoded 01/19/21 21:20 Review of Systems ROS Statement: Those systems with pertinent positive or pertinent negative responses have been documented in the HPI. ROS Other: All systems not noted in ROS Statement are negative. Past Medical History Past Medical History: Chest Pain / Angina, Dementia, Hyperlipidemia, Hypertension, Memory Impairment, Osteoarthritis (OA), Sleep Apnea/CPAP/BIPAP Additional Past Medical History / Comment(s): Frontal lobe impairment, confused most of the time, impulsive, NIDDM type II, UTIs, UTI with sepsis, protein calorie malnutrition, iron anemia, hypokalemia, vitamin D deficiency, constipation, diverticular disease, DDD, low back pain, occasional incontinence, ubaldo denied hx of asthma. History of Any Multi-Drug Resistant Organisms: None Reported Past Surgical History: Back Surgery Additional Past Surgical History / Comment(s): Colonoscopy Past Anesthesia/Blood Transfusion Reactions: No Reported Reaction Past Psychological History: Anxiety, Depression Smoking Status: Unknown if ever smoked Past Alcohol Use History: Occasional Past Drug Use History: None Reported - Past Family History Father Family Medical History: Cancer Additional Family Medical History / Comment(s): Ubaldo does not know type of cancer. Mother Additional Family Medical History / Comment(s): HEART DISEASE General Exam Limitations: altered mental status General appearance: alert, in no apparent distress Head exam: Present: atraumatic, normocephalic. Absent: normal inspection (Ecchymosis just above the right orbital region) Eye exam: Present: normal appearance, PERRL, EOMI. Absent: scleral icterus, conjunctival injection, periorbital swelling, periorbital tenderness ENT exam: Present: normal exam, mucous membranes moist Neck exam: Present: normal inspection, full ROM. Absent: tenderness, meningismus, lymphadenopathy Respiratory exam: Present: normal lung sounds bilaterally. Absent: respiratory distress, wheezes, rales, rhonchi, stridor Cardiovascular Exam: Present: regular rate, normal rhythm, normal heart sounds. Absent: systolic murmur, diastolic murmur, rubs, gallop, clicks Course Vital Signs 03/12/21 20:13 Temperature 97.7 F Pulse Rate 90 Respiratory 18 Rate Blood Pressure 101/74 O2 Sat by Pulse 97 Oximetry Medical Decision Making - Medical Decision Making CT is unremarkable. There is no other obvious injuries. Patient discharged in stable condition return parameters were discussed. Disposition Clinical Impression: Scalp hematoma Disposition: HOME SELF-CARE Condition: Stable Instructions (If sedation given, give patient instructions): Head Injury (ED) Additional Instructions: Please return to the Emergency Department if symptoms worsen or any other concerns. Is patient prescribed a controlled substance at d/c from ED?: No Referrals: Luis Wan MD [Primary Care Provider] - 1-2 days Time of Disposition: 21:19
--- NOTE | 2021-03-12 21:15 | CT ---
EXAMINATION TYPE: CT brain [place] wo con DATE OF EXAM: 03/12/2021 COMPARISON: 01/19/2021. HISTORY: Fall. CT DLP: 2700 mGycm Automated exposure control for dose reduction was used. TECHNIQUE: CT scan of the head and cervical spine are performed without contrast. FINDINGS: There is no acute intracranial hemorrhage, mass effect, or midline shift identified. The ventricles and sulci are within normal limits in size. There is moderate parenchymal volume loss and mild white matter disease. The globes are intact and the visualized sinuses are clear. There is sma ll right frontal scalp hematoma. Cervical spine is visualized in its entirety from C1 through upper thoracic levels and demonstrates s atisfactory alignment without evidence of acute fracture or dislocation. Mild cervical spondylosis. Prevertebral soft tissue appears within normal limits. The C1-C2 articulation is unremarkable. IMPRESSION: Right frontal scalp hematoma. No acute intracranial or cervical spine abnormality.
[2021-03-12 22:21] VITALS: BP 162/84; PULSE 86; RESP 16
== END 2021-03-12 22:21 | disposition home or self-care (01) ==
LOC: EC 20:11
DX: S00.03XA Contusion of scalp, initial encounter (principal); E11.9 Type 2 diabetes mellitus without complications; I10 Essential (primary) hypertension; E78.5 Hyperlipidemia, unspecified; M19.90 Unspecified osteoarthritis, unspecified site; F03.90 Unspecified dementia, unspecified severity, without behavioral disturbance, psychotic disturbance, mood disturbance, and anxiety; F32.9 Major depressive disorder, single episode, unspecified; F41.9 Anxiety disorder, unspecified; Z79.4 Long term (current) use of insulin; Z79.01 Long term (current) use of anticoagulants; Z79.899 Other long term (current) drug therapy; Z88.0 Allergy status to penicillin; Z88.5 Allergy status to narcotic agent; Z88.6 Allergy status to analgesic agent; W19.XXXA Unspecified fall, initial encounter
CPT/HCPCS: 70450; 72125; 99284

== ENCOUNTER 2021-06-12 15:25 | Inpatient (IN) | payer MEDICARE, OTHER ==
[2021-06-12] MEDS ORDERED: SODIUM CHLORIDE 0.9% 1,000 ML IV STA (15:41)
[2021-06-12 16:12] LABS: Basophils # (A) 0.1 k/uL (0-0.2); Basophils % (A) 0 %; Eosinophils # (A) 1.2 k/uL (0-0.7); Eosinophils % (A) 7 %; HCT 38.4 % (34.0-46.0); HGB 12.7 gm/dL (11.4-16.0); Lymphocytes # (A) 4.8 k/uL (1.0-4.8); Lymphocytes % (A) 28 %; MCH 36.6 pg (25.0-35.0); MCHC 33.1 g/dL (31.0-37.0); MCV 110.3 fL (80.0-100.0); Macrocytosis Marked; Mean Platelet Volume 7.6; Monocytes # (A) 0.6 k/uL (0-1.0); Monocytes % (A) 3 %; Neutrophils # (A) 10.3 k/uL (1.3-7.7); Neutrophils % (A) 60 %; Platelet Count 455 k/uL (150-450); RBC 3.48 m/uL (3.80-5.40); RDW 13.5 % (11.5-15.5); WBC 17.1 k/uL (3.8-10.6)
[2021-06-12 16:25] LABS: ALT 13 U/L (4-34); AST 18 U/L (14-36); African American GFR (CKD) >90 (>60 ml/min/1.73 sqM); Albumin 3.8 g/dL (3.5-5.0); Alkaline Phosphatase 104 U/L (38-126); Anion Gap 11 mmol/L; Blood Urea Nitrogen 26 mg/dL (7-17); Calcium 9.4 mg/dL (8.4-10.2); Carbon Dioxide 26 mmol/L (22-30); Chloride 104 mmol/L (98-107); Glucose 196 mg/dL (74-99); Magnesium 2.1 mg/dL (1.6-2.3); Non-African American GFR(CKD) 86 (>60 ml/min/1.73 sqM); Potassium 4.5 mmol/L (3.5-5.1); Sodium 141 mmol/L (137-145); Total Bilirubin 0.3 mg/dL (0.2-1.3); Total Protein 7.2 g/dL (6.3-8.2)
[2021-06-12 16:50] LABS: INR 0.9 (<1.2); Partial Thromboplastin Time 16.8 sec (22.0-30.0); Prothrombin Time 9.6 sec (9.0-12.0)
--- NOTE | 2021-06-12 17:19 | XR ---
INDICATION: Patient age:Female; 76 years old; Reason for study: LEELEE; [facility]. COMPARISON: None. TECHNIQUE: Frontal and lateral views of the chest. FINDINGS: Lungs/Pleura: Low lung volumes are present. There is no evidence of pleural effusion, focal consolida tion, or pneumothorax. Pulmonary vascularity: Unremarkable. Heart/mediastinum: Cardiomediastinal silhouette is unremarkable. Musculoskeletal: No acute osseous pathology. IMPRESSION: No acute cardiopulmonary disease/process.
--- NOTE | 2021-06-12 17:22 | XR ---
INDICATION: Patient age:Female; 76 years old; Reason for study: LEELEE; [facility]. COMPARISON: None TECHNIQUE: The soft tissues of the neck were imaged in 2 views. FINDINGS: The prevertebral soft tissues are unremarkable. There is no evidence of mass effect or trac heal deviation. Degenerative disc disease changes is noted throughout the cervical spine. No acute os seous abnormality demonstrated. IMPRESSION: No significant abnormality identified within the soft tissues of the neck.
--- NOTE | 2021-06-12 17:44 | ED ---
General Adult HPI - General Chief complaint: Shortness of Breath Stated complaint: vomiting/low o2 Time Seen by Provider: 06/12/21 15:39 Source: EMS, RN notes reviewed, old records reviewed Mode of arrival: EMS Limitations: altered mental status - History of Present Illness Initial comments: Patient is a 76-year-old female who presents from her nursing facility. Patient presents from [facility], and per staff they were in the shower with the patient when she became cyanotic and her pulse ox dropped. They state that her pulse ox may have dropped into the 50s. She does have a history of ingesting things that she shouldn't per staff. Patient is normally alert and oriented 0 and nonverbal. Noisy breathing at rest currently. She vomited twice with no obvious foreign body. They believe that she may have vomited and aspirated but are uncertain what caused this. Patient is unable to provide any form of history. She is alert. She is currently on a nonrebreather. She is in mild distress, and has some noisy breathing. Patient presents for further evaluation. She has a history of dementia, hypertension, sleep apnea. - Related Data Home Medications Medication Instructions Recorded Confirmed Lactulose 10 gm PO BID@0900,209906/01/18 06/12/21 Atorvastatin [Lipitor] 20 mg PO HS@209910/04/19 06/12/21 metFORMIN HCL [Glucophage] 500 mg PO BID@0900,209910/04/19 06/12/21 Metoprolol Tartrate [Lopressor] 12.5 mg PO BID@0900,2100 02/08/20 06/12/21 Acetaminophen Tab [Tylenol] 500 mg PO TID@0600,1400,2200 04/29/20 06/12/21 Calcium Carb-Vit D 500Mg-5Mcg 1 tab PO BID@0900,209904/29/20 06/12/21 [Oscal 500+D 5 Mcg (200 Iu)] HYDROcodone/APAP 5-325MG [Sandy 1 tab PO Q8H PRN 04/29/20 06/12/21 5-325] buPROPion SR [Wellbutrin SR] 100 mg PO DAILY@0900 04/29/20 06/12/21 Cholecalciferol [Vitamin D3 (25 50 mcg PO DAILY@89907/24/20 06/12/21 Mcg = 1000 Iu)] Folic Acid 0.4 mg PO DAILY@89907/24/20 06/12/21 Lactose-Reduced Food [Ensure Plus] 120 ml PO BID@899,209907/24/20 06/12/21 Sennosides-Docusate Sodium 2 tab PO HS@209903/12/21 06/12/21 [Senokot-S] amLODIPine [Norvasc] 10 mg PO HS@209903/12/21 06/12/21 Aspirin EC [Ecotrin Low Dose] 81 mg PO DAILY@209906/12/21 06/12/21 Allergies Allergy/AdvReac Type Severity Reaction Status Date / Time aspirin Allergy Mild Nausea Verified 06/12/21 17:02 codeine Allergy Mild Nausea Verified 06/12/21 17:02 Penicillins Allergy Unknown Unknown Verified 06/12/21 17:02 cod Allergy Severe Unknown Uncoded 01/19/21 21:20 Review of Systems ROS Statement: Those systems with pertinent positive or pertinent negative responses have been documented in the HPI. Unable to obtain secondary to patient's clinical status and dementia. ROS Other: All systems not noted in ROS Statement are negative. Past Medical History Past Medical History: Chest Pain / Angina, Dementia, Hyperlipidemia, Hypertension, Memory Impairment, Osteoarthritis (OA), Sleep Apnea/CPAP/BIPAP Additional Past Medical History / Comment(s): Frontal lobe impairment, confused most of the time, impulsive, NIDDM type II, UTIs, UTI with sepsis, protein calorie malnutrition, iron anemia, hypokalemia, vitamin D deficiency, constipation, diverticular disease, DDD, low back pain, occasional incontinence, ubaldo denied hx of asthma. History of Any Multi-Drug Resistant Organisms: None Reported Past Surgical History: Back Surgery Additional Past Surgical History / Comment(s): Colonoscopy Past Anesthesia/Blood Transfusion Reactions: No Reported Reaction Past Psychological History: Anxiety, Depression Smoking Status: Unknown if ever smoked Past Alcohol Use History: Occasional Past Drug Use History: None Reported - Past Family History Father Family Medical History: Cancer Additional Family Medical History / Comment(s): Ubaldo does not know type of cancer. Mother Additional Family Medical History / Comment(s): HEART DISEASE General Exam - General Exam Comments Initial Comments: General: Mildly increased work of breathing. HEAD: Normal with no signs of head trauma. EYES: PERRLA, EOMI, conjunctiva normal, no discharge. ENT: Hearing grossly intact, normal oropharynx. RESPIRATORY: Rhonchorous breath sounds in the upper airways. No obvious wheezing. Mildly increased work of breathing. Saturating 100% on nonrebreather for right now. C/V: Mild tachycardia with a regular rhythm. S1 and S2 auscultated. Peripheral pulses 2+ intact throughout. No peripheral edema. ABD: Abd is soft, nontender, nondistended EXT: Normal range of motion, no obvious deformity SKIN: No rashes or lesions observed on exposed skin. NEURO: Alert and oriented which is her baseline. He will move all 4 extremities. Difficult to obtain neurological exam secondary to her chronic dementia and baseline neurological status alert and oriented 0. Limitations: altered mental status Course Vital Signs 06/12/21 06/12/21 06/12/21 15:27 15:35 17:32 Pulse Rate 103 H 77 Respiratory 28 H 18 Rate Blood Pressure 126/104 162/97 123/80 O2 Sat by Pulse 82 L 98 Oximetry 06/12/21 06/12/21 06/12/21 18:13 19:30 22:50 Pulse Rate 76 81 Respiratory 18 20 20 Rate Blood Pressure 134/70 138/74 O2 Sat by Pulse 98 95 Oximetry Medical Decision Making - Medical Decision Making Based on the patient's presentation and physical exam, I'm concerned for various hypoxic etiologies for her current symptoms, this includes cardiac, infectious, aspiration pneumonia. Therefore we will obtain cardiac labs, screening d-dimer, as the patient does not PERC out and Well's score for PE is moderate at 3. EKG and chest x-ray will be obtained as well. She'll be maintained on nonrebreather for the time being until imaging is completed. Patient will be given a 1 L fluid bolus. EKG was remarkable for no signs of acute ischemia. Laboratory studies are remarkable for a leukocytosis of 17. Patient has a macrocytosis of 110. Patient is a mildly elevated d-dimer of 1.17. Lactic acid is mildly elevated to 2.1, likely from dehydration. Troponin is negative. Covid is negative. Remainder the labs are unremarkable. Chest x-ray and neck x-ray showed no acute cardiopulmonary process. Patient's CT PE reveal no signs of pulmonary embolus. There is no acute process. Possible pulmonary hypertension. On reevaluation, patient's hypoxia distress to clean improved, as she is now saturating 98% on 2 L nasal cannula. We will continue to try to wean her. Due to her dementia, as well as severity of hypoxia, she will be admitted to the hospital for further evaluation. Patient will be given a one-time dose of IV antibiotics for the potential for aspiration pneumonitis or pneumonia that may develop over the next 24 hours in the setting of a leukocytosis which is likely reactive. Urinalysis is still pending at this time. We'll continue to trend her troponins. I spoke with the admitting team, Dr. Hernandez, who accepted the patient. Patient was admitted in stable condition to telemetry bed. - Lab Data Result diagrams: 06/12/21 16:01 06/12/21 16:01 Lab Results 06/12/21 06/12/21 06/12/21 Range/Units 16:01 16:01 16:01 WBC 17.1 H (3.8-10.6) k/uL RBC 3.48 L (3.80-5.40) m/uL Hgb 12.7 (11.4-16.0) gm/dL Hct 38.4 (34.0-46.0) % MCV 110.3 H (80.0-100.0) fL MCH 36.6 H (25.0-35.0) pg MCHC 33.1 (31.0-37.0) g/dL RDW 13.5 (11.5-15.5) % Plt Count 455 H (150-450) k/uL MPV 7.6 Neutrophils % 60 % Lymphocytes % 28 % Monocytes % 3 % Eosinophils % 7 % Basophils % 0 % Neutrophils # 10.3 H (1.3-7.7) k/uL Lymphocytes # 4.8 (1.0-4.8) k/uL Monocytes # 0.6 (0-1.0) k/uL Eosinophils # 1.2 H (0-0.7) k/uL Basophils # 0.1 (0-0.2) k/uL Macrocytosis Marked A PT 9.6 (9.0-12.0) sec INR 0.9 (<1.2) APTT 16.8 L (22.0-30.0) sec D-Dimer 1.17 H (<0.60) mg/L FEU Sodium 141 (137-145) mmol/L Potassium 4.5 (3.5-5.1) mmol/L Chloride 104 (98-107) mmol/L Carbon Dioxide 26 (22-30) mmol/L Anion Gap 11 mmol/L BUN 26 H (7-17) mg/dL Creatinine 0.69 (0.52-1.04) mg/dL Est GFR (CKD-EPI)AfAm >90 (>60 ml/min/1.73 sqM) Est GFR (CKD-EPI)NonAf 86 (>60 ml/min/1.73 sqM) Glucose 196 H (74-99) mg/dL Lactic Ac Sepsis Rflx Plasma Lactic Acid Aren (0.7-2.0) mmol/L Calcium 9.4 (8.4-10.2) mg/dL Magnesium 2.1 (1.6-2.3) mg/dL Total Bilirubin 0.3 (0.2-1.3) mg/dL AST 18 (14-36) U/L ALT 13 (4-34) U/L Alkaline Phosphatase 104 (38-126) U/L Troponin I (0.000-0.034) ng/mL Total Protein 7.2 (6.3-8.2) g/dL Albumin 3.8 (3.5-5.0) g/dL Coronavirus (PCR) (Not Detectd) 06/12/21 06/12/21 06/12/21 Range/Units 16:01 16:01 16:01 WBC (3.8-10.6) k/uL RBC (3.80-5.40) m/uL Hgb (11.4-16.0) gm/dL Hct (34.0-46.0) % MCV (80.0-100.0) fL MCH (25.0-35.0) pg MCHC (31.0-37.0) g/dL RDW (11.5-15.5) % Plt Count (150-450) k/uL MPV Neutrophils % % Lymphocytes % % Monocytes % % Eosinophils % % Basophils % % Neutrophils # (1.3-7.7) k/uL Lymphocytes # (1.0-4.8) k/uL Monocytes # (0-1.0) k/uL Eosinophils # (0-0.7) k/uL Basophils # (0-0.2) k/uL Macrocytosis PT (9.0-12.0) sec INR (<1.2) APTT (22.0-30.0) sec D-Dimer (<0.60) mg/L FEU Sodium (137-145) mmol/L Potassium (3.5-5.1) mmol/L Chloride (98-107) mmol/L Carbon Dioxide (22-30) mmol/L Anion Gap mmol/L BUN (7-17) mg/dL Creatinine (0.52-1.04) mg/dL Est GFR (CKD-EPI)AfAm (>60 ml/min/1.73 sqM) Est GFR (CKD-EPI)NonAf (>60 ml/min/1.73 sqM) Glucose (74-99) mg/dL Lactic Ac Sepsis Rflx Plasma Lactic Acid Aren 2.1 H* (0.7-2.0) mmol/L Calcium (8.4-10.2) mg/dL Magnesium (1.6-2.3) mg/dL Total Bilirubin (0.2-1.3) mg/dL AST (14-36) U/L ALT (4-34) U/L Alkaline Phosphatase (38-126) U/L Troponin I <0.012 (0.000-0.034) ng/mL Total Protein (6.3-8.2) g/dL Albumin (3.5-5.0) g/dL Coronavirus (PCR) Not Detected (Not Detectd) 06/12/21 Range/Units 16:35 WBC (3.8-10.6) k/uL RBC (3.80-5.40) m/uL Hgb (11.4-16.0) gm/dL Hct (34.0-46.0) % MCV (80.0-100.0) fL MCH (25.0-35.0) pg MCHC (31.0-37.0) g/dL RDW (11.5-15.5) % Plt Count (150-450) k/uL MPV Neutrophils % % Lymphocytes % % Monocytes % % Eosinophils % % Basophils % % Neutrophils # (1.3-7.7) k/uL Lymphocytes # (1.0-4.8) k/uL Monocytes # (0-1.0) k/uL Eosinophils # (0-0.7) k/uL Basophils # (0-0.2) k/uL Macrocytosis PT (9.0-12.0) sec INR (<1.2) APTT (22.0-30.0) sec D-Dimer (<0.60) mg/L FEU Sodium (137-145) mmol/L Potassium (3.5-5.1) mmol/L Chloride (98-107) mmol/L Carbon Dioxide (22-30) mmol/L Anion Gap mmol/L BUN (7-17) mg/dL Creatinine (0.52-1.04) mg/dL Est GFR (CKD-EPI)AfAm (>60 ml/min/1.73 sqM) Est GFR (CKD-EPI)NonAf (>60 ml/min/1.73 sqM) Glucose (74-99) mg/dL Lactic Ac Sepsis Rflx Y Plasma Lactic Acid Aren (0.7-2.0) mmol/L Calcium (8.4-10.2) mg/dL Magnesium (1.6-2.3) mg/dL Total Bilirubin (0.2-1.3) mg/dL AST (14-36) U/L ALT (4-34) U/L Alkaline Phosphatase (38-126) U/L Troponin I (0.000-0.034) ng/mL Total Protein (6.3-8.2) g/dL Albumin (3.5-5.0) g/dL Coronavirus (PCR) (Not Detectd) - EKG Data -: EKG Interpreted by Me EKG Comments: 12-lead Electrocardiogram Interpretation Note EKG was reviewed and interpreted by myself. 12-lead ECG performed at 2120 is interpreted by me as revealing normal sinus rhythm at a rate of 87 beats per minute. axis is normal. MD interval is 170 ms, QRS duration is 80 ms, QTc is 445 ms.. There were no ST or T wave abnormalities to suggest myocardial ischemia or injury. R wave progression across the precordium was satisfactory. By my interpretation this EKG is non-diagnostic for acute ischemia. Disposition Clinical Impression: Hypoxia, Elevated d-dimer, Dementia, Aspiration into respiratory tract, Leukocytosis Disposition: ADMITTED IP TO THIS HOSP Condition: Stable
--- NOTE | 2021-06-12 18:36 | CT ---
EXAMINATION TYPE: CT chest angio for PE DATE OF EXAM: 06/12/2021 COMPARISON: Chest radiograph 06/12/2021 HISTORY: Patient poor historian. CT DLP: 751.7 mGycm Automated exposure control for dose reduction was used. CONTRAST: CT Chest for pulmonary embolism performed with with IV Contrast, patient injected with 100 mL of Isov ue 370. FINDINGS: LUNGS: The lungs are grossly clear, there is no concerning parenchymal mass or nodule identified. T here is no pleural effusion or pneumothorax seen. The tracheobronchial tree is patent. MEDIASTINUM: There is satisfactory enhancement of the pulmonary artery and its branches, there is no CT evidence for pulmonary embolism. Evaluation of the distal segmental and subsegmental branches seco ndary to motion. There are no greater than 1 cm hilar or mediastinal lymph nodes. No pericardial e ffusion is seen. Dilated pulmonary trunk measuring up to 3.3 cm. OTHER: Multilevel degenerative changes are seen throughout the spine. Mild atherosclerotic changes o f the visualized arterial vasculature. IMPRESSION: 1. No evidence of central PE. 2. Enlarged pulmonary trunk suggesting underlying hypertension.
[2021-06-12] MEDS ORDERED: AZITHROMYCIN 500 MG in SODIUM CHLORIDE 0.9% 250 ML IVPB STA (18:49)
[2021-06-12] MEDS ORDERED: NALOXONE 0.4 MG/ML 1 ML VIAL IV PRN (19:18)
[2021-06-12] MEDS: SODIUM CHLORIDE 0.9% 1,000 ML IV SCH (23:55)
[2021-06-13] MEDS ORDERED: HEPARIN SODIUM 1,000 UN/ML (10ML VL) IV PRN (04:14)
[2021-06-13] MEDS ORDERED: HEPARIN SODIUM 1,000 UN/ML (10ML VL) IV ONE (04:14)
[2021-06-13] MEDS: HEPARIN SOD,PORK IN 0.45% NACL 25,000 UNIT in 0.45% NACL 1 250ML.BAG IV SCH (04:46)
[2021-06-13 06:16] LABS: Basophils % (A) 0 %; Eosinophils # (A) 0.8 k/uL (0-0.7); Eosinophils % (A) 4 %; HCT 36.8 % (34.0-46.0); HGB 11.8 gm/dL (11.4-16.0); Lymphocytes # (A) 2.5 k/uL (1.0-4.8); Lymphocytes % (A) 14 %; MCH 35.7 pg (25.0-35.0); MCHC 32.1 g/dL (31.0-37.0); MCV 111.1 fL (80.0-100.0); Mean Platelet Volume 7.7; Monocytes # (A) 0.7 k/uL (0-1.0); Monocytes % (A) 4 %; Neutrophils # (A) 14.1 k/uL (1.3-7.7); Neutrophils % (A) 77 %; Platelet Count 415 k/uL (150-450); RBC 3.31 m/uL (3.80-5.40); RDW 13.5 % (11.5-15.5); WBC 18.4 k/uL (3.8-10.6)
[2021-06-13 06:27] LABS: Macrocytosis Marked
[2021-06-13 06:46] LABS: Prothrombin Time 10.4 sec (9.0-12.0)
[2021-06-13] MEDS: SODIUM CHLORIDE 0.9% 1,000 ML IV SCH ×2 (10:13→23:04)
--- NOTE | 2021-06-13 10:22 | P.CRDCN ---
History of Present Illness Consult date: 06/13/21 History of present illness: HISTORY OF PRESENT ILLNESS: This is a 76-year-old female with a past medical history significant for hypertension, hyperlipidemia, and diabetes. 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 She was last seen in the office in 2014. We have been asked to see the patient in consultation for abnormal troponins. Patient examined at the bedside in the ER. The patient has a history of dementia and is nonverbal at [facility] per the nurse. The patient was brought to the emergency room due to hypoxia. She resides at [facility] and was apparently found to be hypoxic with an o2 sat in the 50s. Nursing reports patient was on a nonrebreather initially which has currently been weaned off. She is on room air with oxygen saturations greater than 92%. Apparently the patient also had a history of putting foreign objects into her mouth at the correction. According to the ER note, the patient vomited twice with no foreign body noted in her emesis. EKG reveals sinus mechanism with nonspecific ST-T wave changes Chest xray negative for acute process Laboratory data: WBC 18.4. Hemoglobin 11.8. Platelet count 415. D-dimer 1.17. Sodium 141. Potassium 4.5. Troponin 0.012. 0.166. 0.187. Chest CTA: No evidence of PE. Enlarged pulmonary trunk suggesting underlying hypertension. Current home cardiac medications include Norvasc 10 mg at night, aspirin 81 mg daily, Lipitor 20 mg at night, metoprolol tartrate 12.5 mg twice a day Most recent echocardiogram obtained in 2014 revealed ejection fraction 50-55% with mild mitral regurgitation REVIEW OF SYSTEMS: At the time of my exam: Unable to obtain thorough review of systems secondary to altered mental status PHYSICAL EXAM: VITAL SIGNS: Reviewed. GENERAL: Well-developed in no acute distress. HEENT: Head is normocephalic. Pupils are equal, round. Sclerae anicteric. Mucous membranes of the mouth are moist. Neck supple. No JVD or thyromegaly LUNGS: Respirations even and unlabored. Lungs diminished to auscultation bilaterally. HEART: Regular rate and rhythm. S1 and S2 heard. ABDOMEN: Soft. Nondistended. Nontender. EXTREMITIES: Normal range of motion. No clubbing or cyanosis. Peripheral pulses intact. No lower extremity edema NEUROLOGIC: Awake. Patient confused. Nonverbal. ASSESSMENT: Acute hypoxic respiratory failure, etiology unclear Abnormal troponin, likely secondary to type II NH due to oxygen supply and demand mismatch Dementia Hypertension Hyperlipidemia Diabetes PLAN: Obtain 2D echo to assess cardiac structure and function Continue IV heparin for an additional 24 hours Resume home cardiac medications Continue with medical management at this time Further recommendations pending patient course Nurse practitioner note has been reviewed by physician. Signing provider agrees with the documented findings, assessment, and plan of care. Past Medical History Past Medical History: Chest Pain / Angina, Dementia, Hyperlipidemia, Hypertension, Memory Impairment, Osteoarthritis (OA), Sleep Apnea/CPAP/BIPAP Additional Past Medical History / Comment(s): Frontal lobe impairment, confused most of the time, impulsive, NIDDM type II, UTIs, UTI with sepsis, protein calorie malnutrition, iron anemia, hypokalemia, vitamin D deficiency, constipation, diverticular disease, DDD, low back pain, occasional incontinence, ubaldo denied hx of asthma. History of Any Multi-Drug Resistant Organisms: None Reported Past Surgical History: Back Surgery Additional Past Surgical History / Comment(s): Colonoscopy Past Anesthesia/Blood Transfusion Reactions: No Reported Reaction Past Psychological History: Anxiety, Depression Smoking Status: Unknown if ever smoked Past Alcohol Use History: Occasional Past Drug Use History: None Reported - Past Family History Father Family Medical History: Cancer Additional Family Medical History / Comment(s): Ubaldo does not know type of cancer. Mother Additional Family Medical History / Comment(s): HEART DISEASE Medications and Allergies Home Medications Medication Instructions Recorded Confirmed Type Lactulose 10 gm PO BID@0900,209906/01/18 06/12/21 History Atorvastatin [Lipitor] 20 mg PO HS@209910/04/19 06/12/21 History metFORMIN HCL [Glucophage] 500 mg PO BID@0900,209910/04/19 06/12/21 History Metoprolol Tartrate [Lopressor] 12.5 mg PO BID@0900,209902/08/20 06/12/21 History Acetaminophen Tab [Tylenol] 500 mg PO TID@0600,1400,2200 04/29/20 06/12/21 History Calcium Carb-Vit D 500Mg-5Mcg 1 tab PO BID@0900,209904/29/20 06/12/21 History [Oscal 500+D 5 Mcg (200 Iu)] HYDROcodone/APAP 5-325MG [Morton 1 tab PO Q8H PRN 04/29/20 06/12/21 History 5-325] buPROPion SR [Wellbutrin SR] 100 mg PO DAILY@89904/29/20 06/12/21 History Cholecalciferol [Vitamin D3 (25 50 mcg PO DAILY@89907/24/20 06/12/21 History Mcg = 1000 Iu)] Folic Acid 0.4 mg PO DAILY@89907/24/20 06/12/21 History Lactose-Reduced Food [Ensure Plus] 120 ml PO BID@899,209907/24/20 06/12/21 History Sennosides-Docusate Sodium 2 tab PO HS@209903/12/21 06/12/21 History [Senokot-S] amLODIPine [Norvasc] 10 mg PO HS@209903/12/21 06/12/21 History Aspirin EC [Ecotrin Low Dose] 81 mg PO DAILY@209906/12/21 06/12/21 History Allergies Allergy/AdvReac Type Severity Reaction Status Date / Time aspirin Allergy Mild Nausea Verified 06/12/21 17:02 codeine Allergy Mild Nausea Verified 06/12/21 17:02 Penicillins Allergy Unknown Unknown Verified 06/12/21 17:02 cod Allergy Severe Unknown Uncoded 01/19/21 21:20 Physical Exam Vitals: Vital Signs Pulse Resp BP Pulse Ox 06/13/21 04:00 83 20 119/82 95 06/13/21 00:42 91 20 135/68 95 06/12/21 22:50 81 20 138/74 95 06/12/21 19:30 20 06/12/21 18:13 76 18 134/70 98 06/12/21 17:32 77 18 123/80 98 06/12/21 15:35 162/97 06/12/21 15:27 103 H 28 H 126/104 82 L Intake and Output 06/12/21 06/13/21 06/13/21 22:59 06:59 14:59 Other: Weight 104.326 kg Results 06/13/21 05:45 06/12/21 16:01 Cardiac Enzymes 06/12/21 06/12/21 06/12/21 Range/Units 16:01 16:01 21:00 AST 18 (14-36) U/L Troponin I <0.012 0.166 H* (0.000-0.034) ng/mL 06/13/21 Range/Units 01:30 AST (14-36) U/L Troponin I 0.187 H* (0.000-0.034) ng/mL Coagulation 06/12/21 06/13/21 06/13/21 Range/Units 16:01 05:45 06:38 PT 9.6 10.4 (9.0-12.0) sec APTT 16.8 L 43.5 H (22.0-30.0) sec CBC 06/12/21 06/13/21 Range/Units 16:01 05:45 WBC 17.1 H 18.4 H (3.8-10.6) k/uL RBC 3.48 L 3.31 L (3.80-5.40) m/uL Hgb 12.7 11.8 (11.4-16.0) gm/dL Hct 38.4 36.8 (34.0-46.0) % Plt Count 455 H 415 (150-450) k/uL Comprehensive Metabolic Panel 06/12/21 Range/Units 16:01 Sodium 141 (137-145) mmol/L Potassium 4.5 (3.5-5.1) mmol/L Chloride 104 (98-107) mmol/L Carbon Dioxide 26 (22-30) mmol/L BUN 26 H (7-17) mg/dL Creatinine 0.69 (0.52-1.04) mg/dL Glucose 196 H (74-99) mg/dL Calcium 9.4 (8.4-10.2) mg/dL AST 18 (14-36) U/L ALT 13 (4-34) U/L Alkaline Phosphatase 104 (38-126) U/L Total Protein 7.2 (6.3-8.2) g/dL Albumin 3.8 (3.5-5.0) g/dL Current Medications Generic Name Dose Route Start Last Admin Trade Name Freq PRN Reason Stop Dose Admin Heparin Sodium (Porcine) 0 unit 06/13/21 04:14 Heparin Sodium 1,000 Un/Ml (10ml Vl) IV PER PROTOCOL PRN Low PTT Protocol Sodium Chloride 1,000 mls @ 75 mls/hr 06/12/21 19:30 06/12/21 23:55 Saline 0.9% IV 75 mls/hr .[id number] KOREY Administration Heparin Sodium/Sodium Chloride 250 mls @ 10.005 mls/hr 06/13/21 04:15 06/13/21 04:46 25,000 unit/ Sodium Chloride IV 9.59 units/kg/hr .Q24H KOREY 10.005 mls/hr Administration Protocol 9.59 UNITS/KG/HR Naloxone HCl 0.2 mg 06/12/21 19:18 Naloxone 0.4 Mg/Ml 1 Ml Vial IV Q2M PRN Opioid Reversal Intake and Output 06/12/21 06/13/21 06/13/21 22:59 06:59 14:59 Other: Weight 104.326 kg 06/13/21 05:45 06/12/21 16:01
[2021-06-13 10:24] LABS: Magnesium 2.1 mg/dL (1.5-2.4)
[2021-06-13 10:36] LABS: African American GFR (CKD) 110.5 (60.0-200.0); Albumin 3.4 g/dL (3.8-4.9); Albumin/Globulin Ratio 1.26 (1.60-3.17); Anion Gap 12.5 mmol/L (10.00-18.00); BUN/Creat Ratio 29.4 Ratio (12.00-20.00); Blood Urea Nitrogen 14.7 mg/dL (9.0-27.0); Calcium 8.7 mg/dL (8.7-10.3); Carbon Dioxide 22.5 mmol/L (20.0-27.5); Globulin 2.7 g/dL (1.6-3.3); Non-African American GFR(CKD) 95.3 (60.0-200.0); Potassium 4.3 mmol/L (3.5-5.5); Total Bilirubin 0.4 mg/dL (0.30-1.20); Total Protein 6.1 g/dL (6.2-8.2)
--- NOTE | 2021-06-13 12:21 | P.HPIM ---
History of Present Illness This is a pleasant 76 years old female with past medical history of Dementia, Hyperlipidemia, Hypertension, Memory Impairment, Osteoarthritis, Sleep Apnea/CPAP/BIPAP, Frontal lobe impairment, confused most of the time, impulsive, NIDDM type II, UTIs, iron anemia, hypokalemia, vitamin D deficiency, constipation, diverticular disease, DDD, low back pain, occasional incontinence, s/p Back Surgery, Anxiety, Depression. She is a patient of Dr. hooker Records patient is normally alert 0 abdomen verbal, she was taking a shower with staff when she becomes Cyanotic and her pulse ox dropped on admission she i s 82% on room air went up quickly 98% on 2 L. Currently her vitals are stable Patient also has reports of ingesting strength substances. Also vomited reported to twice Labs showed leukocytosis at 17.1 K. But patient has chronic leukocytosis fluctuated 10-17k, Platelets high at 455 and hemoglobin within the reference range D-dimer is slightly elevated at 1.1. INR is normal 0.9. BNP of liver enzymes and troponin are unremarkable. Troponin admission was less than 0.01, no Increased to 0.16 and 0.18 High lactic acid 2.1 came back to normal at 1.7. coronavirus not detected. CT of the chest colonic negative for acute pulmonary embolism. Large pulmonary trunk to suggest an underlying pulmonary hypertension. Soft tissue neck x-ray show no significant abnormality identified within the soft tissue of the neck Chest x-ray: No acute process It emergency room she received 1 bolus of NS 1 L and continued at 75 mL/h Review of Systems n/a patient is nonverbal Past Medical History Past Medical History: Chest Pain / Angina, Dementia, Hyperlipidemia, Hypertension, Memory Impairment, Osteoarthritis (OA), Sleep Apnea/CPAP/BIPAP Additional Past Medical History / Comment(s): Frontal lobe impairment, confused most of the time, impulsive, NIDDM type II, UTIs, UTI with sepsis, protein calorie malnutrition, iron anemia, hypokalemia, vitamin D deficiency, constipation, diverticular disease, DDD, low back pain, occasional incontinence, ubaldo denied hx of asthma. History of Any Multi-Drug Resistant Organisms: None Reported Past Surgical History: Back Surgery Additional Past Surgical History / Comment(s): Colonoscopy Past Anesthesia/Blood Transfusion Reactions: No Reported Reaction Past Psychological History: Anxiety, Depression Smoking Status: Unknown if ever smoked Past Alcohol Use History: Occasional Past Drug Use History: None Reported - Past Family History Father Family Medical History: Cancer Additional Family Medical History / Comment(s): Ubaldo does not know type of cancer. Mother Additional Family Medical History / Comment(s): HEART DISEASE Medications and Allergies Home Medications Medication Instructions Recorded Confirmed Type Lactulose 10 gm PO BID@0900,209906/01/18 06/12/21 History Atorvastatin [Lipitor] 20 mg PO HS@209910/04/19 06/12/21 History metFORMIN HCL [Glucophage] 500 mg PO BID@0900,209910/04/19 06/12/21 History Metoprolol Tartrate [Lopressor] 12.5 mg PO BID@0900,209902/08/20 06/12/21 History Acetaminophen Tab [Tylenol] 500 mg PO TID@0600,1400,2200 04/29/20 06/12/21 History Calcium Carb-Vit D 500Mg-5Mcg 1 tab PO BID@899,209904/29/20 06/12/21 History [Oscal 500+D 5 Mcg (200 Iu)] HYDROcodone/APAP 5-325MG [[place] 1 tab PO Q8H PRN 04/29/20 06/12/21 History 5-325] buPROPion SR [Wellbutrin SR] 100 mg PO DAILY@89904/29/20 06/12/21 History Cholecalciferol [Vitamin D3 (25 50 mcg PO DAILY@89907/24/20 06/12/21 History Mcg = 1000 Iu)] Folic Acid 0.4 mg PO DAILY@89907/24/20 06/12/21 History Lactose-Reduced Food [Ensure Plus] 120 ml PO BID@0900,209907/24/20 06/12/21 History Sennosides-Docusate Sodium 2 tab PO HS@209903/12/21 06/12/21 History [Senokot-S] amLODIPine [Norvasc] 10 mg PO HS@209903/12/21 06/12/21 History Aspirin EC [Ecotrin Low Dose] 81 mg PO DAILY@209906/12/21 06/12/21 History Allergies Allergy/AdvReac Type Severity Reaction Status Date / Time aspirin Allergy Mild Nausea Verified 06/12/21 17:02 codeine Allergy Mild Nausea Verified 06/12/21 17:02 Penicillins Allergy Unknown Unknown Verified 06/12/21 17:02 cod Allergy Severe Unknown Uncoded 01/19/21 21:20 Physical Exam Vitals: Vital Signs Pulse Resp BP Pulse Ox 06/13/21 04:00 83 20 119/82 95 06/13/21 00:42 91 20 135/68 95 06/12/21 22:50 81 20 138/74 95 06/12/21 19:30 20 06/12/21 18:13 76 18 134/70 98 06/12/21 17:32 77 18 123/80 98 06/12/21 15:35 162/97 06/12/21 15:27 103 H 28 H 126/104 82 L Intake and Output 06/12/21 06/13/21 06/13/21 22:59 06:59 14:59 Other: Weight 104.326 kg -GENERAL: The patient is alert and oriented , patient is nonverbal at baseline, she has good attention span but he does not follow commands, not in any acute distress. Obese HEENT: Pupils are round and equally reacting to light. EOMI. No scleral icterus. No conjunctival pallor. Normocephalic, atraumatic. No pharyngeal erythema. No thyromegaly. CARDIOVASCULAR: S1 and S2 present. No murmurs, rubs, or gallops. PULMONARY: Chest is clear to auscultation, no wheezing or crackles. ABDOMEN: Soft, nontender, nondistended, normoactive bowel sounds. No palpable organomegaly. MUSCULOSKELETAL: No joint swelling or deformity. EXTREMITIES: No cyanosis, clubbing, or pedal edema. NEUROLOGICAL: Gross neurological examination did not reveal any focal deficits. SKIN: No rashes. No petechiae Results CBC & Chem 7: 06/13/21 05:45 06/13/21 05:45 Labs: Abnormal Lab Results - Last 24 Hours (Table) 06/12/21 06/12/21 06/12/21 Range/Units 16:01 16:01 16:01 WBC 17.1 H (3.8-10.6) k/uL RBC 3.48 L (3.80-5.40) m/uL MCV 110.3 H (80.0-100.0) fL MCH 36.6 H (25.0-35.0) pg Plt Count 455 H (150-450) k/uL Neutrophils # 10.3 H (1.3-7.7) k/uL Eosinophils # 1.2 H (0-0.7) k/uL Macrocytosis Marked A APTT 16.8 L (22.0-30.0) sec D-Dimer 1.17 H (<0.60) mg/L FEU BUN 26 H (7-17) mg/dL Glucose 196 H (74-99) mg/dL Plasma Lactic Acid Aren (0.7-2.0) mmol/L Troponin I (0.000-0.034) ng/mL 06/12/21 06/12/21 06/13/21 Range/Units 16:01 21:00 01:30 WBC (3.8-10.6) k/uL RBC (3.80-5.40) m/uL MCV (80.0-100.0) fL MCH (25.0-35.0) pg Plt Count (150-450) k/uL Neutrophils # (1.3-7.7) k/uL Eosinophils # (0-0.7) k/uL Macrocytosis APTT (22.0-30.0) sec D-Dimer (<0.60) mg/L FEU BUN (7-17) mg/dL Glucose (74-99) mg/dL Plasma Lactic Acid Aren 2.1 H* (0.7-2.0) mmol/L Troponin I 0.166 H* 0.187 H* (0.000-0.034) ng/mL 06/13/21 Range/Units 05:45 WBC 18.4 H (3.8-10.6) k/uL RBC 3.31 L (3.80-5.40) m/uL MCV 111.1 H (80.0-100.0) fL MCH 35.7 H (25.0-35.0) pg Plt Count (150-450) k/uL Neutrophils # 14.1 H (1.3-7.7) k/uL Eosinophils # 0.8 H (0-0.7) k/uL Macrocytosis Marked A APTT (22.0-30.0) sec D-Dimer (<0.60) mg/L FEU BUN (7-17) mg/dL Glucose (74-99) mg/dL Plasma Lactic Acid Aren (0.7-2.0) mmol/L Troponin I (0.000-0.034) ng/mL Assessment and Plan Assessment: Elevated troponin, rule out cardiac causes Episodic hypoxia during showering, could be a false reading, false-positive test. Chronic leukocytosis with a slight recent worsening hypertension Hyperlipidemia Diabetes mellitus History of advanced dementia and memory impairment, patient is nonverbal at baseline History of osteoarthritis, degenerative disc disease and chronic low back pain History of Sleep apnea History of Confusion most of the time. History Vitamin D deficiency History of anxiety and depression History of back surgery Plan: This is a pleasant 76 years old female who presents with possible cirrhosis and hypoxia during showering. Currently her vitals are stable. All images were reviewed including CTA of the chest, chest x-ray and soft tissue neck x-ray cardiology consult, Consider palliative consult as an outpatient Labs and medication were reviewed.. Continue same treatment. Continue with symptomatic treatment. Resume home medication. Monitor lytes and vitals. DVT and GI prophylaxis. Further recommendations depends on the clinical course of the patient DVT prophylaxis: Subcutaneous heparin GI Prophylaxis: Pepcid Prognosis is guarded. prison prognosis is poor
[2021-06-13 13:50] LABS: Appearance,Urine Clear (Clear); Bacteria,Urine Rare /hpf; Bilirubin,Urine Negative (Negative); Blood,Urine Small (Negative); Color,Urine Light Yellow; Glucose,Urine (UA) Negative (Negative); Ketones,Urine Negative (Negative); Leukocyte Esterase,Urine Trace (Negative); Nitrite,Urine Negative (Negative); PH, Urine 6.5 (5.0-8.0); Protein,Urine Negative (Negative); RBC,Urine 6 /hpf (0-5); Specific Gravity,Urine 1.015 (1.001-1.035); Squamous Epithelial Cell,Urine <1 /hpf (0-4); Urobilinogen,Urine <2.0 mg/dL (<2.0); WBC,Urine 7 /hpf (0-5)
[2021-06-13] MEDS: ASPIRIN 81 MG PO SCH (22:59)
[2021-06-13] MEDS: amLODIPine 10 MG TAB PO SCH (22:59)
[2021-06-13] MEDS: METOPROLOL TARTRATE 12.5 MG TAB PO SCH (22:59)
[2021-06-13] MEDS: ATORVASTATIN 20 MG TAB PO SCH (22:59)
[2021-06-14] MEDS: HEPARIN SOD,PORK IN 0.45% NACL 25,000 UNIT in 0.45% NACL 1 250ML.BAG IV SCH (04:22)
[2021-06-14 06:49] LABS: Appearance,Urine Clear (Clear); Bacteria,Urine Rare /hpf; Bilirubin,Urine Negative (Negative); Blood,Urine Small (Negative); Color,Urine Light Yellow; Glucose,Urine (UA) Negative (Negative); Ketones,Urine Negative (Negative); Leukocyte Esterase,Urine Small (Negative); Nitrite,Urine Negative (Negative); PH, Urine 7.5 (5.0-8.0); Protein,Urine Negative (Negative); RBC,Urine 9 /hpf (0-5); Specific Gravity,Urine 1.007 (1.001-1.035); Urobilinogen,Urine <2.0 mg/dL (<2.0); WBC,Urine 14 /hpf (0-5)
[2021-06-14] MEDS: METOPROLOL TARTRATE 12.5 MG TAB PO SCH ×2 (07:44→20:20)
[2021-06-14 07:51] LABS: Basophils % (A) 0 %; Eosinophils # (A) 0.9 k/uL (0-0.7); Eosinophils % (A) 9 %; HCT 36.7 % (34.0-46.0); HGB 12.1 gm/dL (11.4-16.0); Lymphocytes # (A) 2.7 k/uL (1.0-4.8); Lymphocytes % (A) 28 %; MCH 35.6 pg (25.0-35.0); MCHC 33.1 g/dL (31.0-37.0); MCV 107.7 fL (80.0-100.0); Macrocytosis Moderate; Mean Platelet Volume 7.6; Monocytes # (A) 0.4 k/uL (0-1.0); Monocytes % (A) 5 %; Neutrophils # (A) 5.6 k/uL (1.3-7.7); Neutrophils % (A) 57 %; Platelet Count 399 k/uL (150-450); RDW 13.6 % (11.5-15.5); WBC 9.8 k/uL (3.8-10.6)
--- NOTE | 2021-06-14 08:20 | P.PN ---
Subjective Progress Note Date: 06/14/21 Principal diagnosis: Abnormal cardiac enzymes This is a 76-year-old female patient with a past medical history significant for severe underlying dementia and a change in mental status as well as multiple comorbid conditions were requested to see for abnormal troponin after hypoxemia likely secondary to aspiration. The patient was seen today. She continues to have severe change in mental status but no indication that she was experiencing any symptoms of chest pain or chest discomfort at this point. No shortness of breath. No dizziness or lightheadedness or presyncope or syncope. She continues to be on heparin as well as aspirin and statin and beta dorene. Objective - Vital Signs Vital signs: Vital Signs Temp 98.1 F 06/14/21 07:39 Pulse 77 06/14/21 07:39 Resp 20 06/14/21 07:39 BP 159/79 06/14/21 07:39 Pulse Ox 95 06/14/21 07:39 Intake & Output 06/13/21 06/14/21 06/14/21 18:59 06:59 18:59 Intake Total 250.000 48.381 Output Total 3500 Balance -3250.000 48.381 Weight 104.326 kg 94 kg Intake: Intake, IV Titration 250.000 48.381 Amount Heparin Sod,Pork in 0.45% 250.000 48.381 NaCl 25,000 unit In 0.45 % NaCl 1 250ml.bag @ 9.59 UNITS/KG/HR 10.005 mls/ hr IV .Q24H [facility] Rx#: [id number] Output: Urine 3500 Other: Voiding Method Diaper Incontinent - Constitutional General appearance: Present: no acute distress - Respiratory Respiratory: bilateral: CTA - Cardiovascular Rhythm: regular - Labs CBC & Chem 7: 06/14/21 06:31 06/13/21 05:45 Labs: Abnormal Lab Results - Last 24 Hours (Table) 06/13/21 06/13/21 06/14/21 Range/Units 05:45 12:59 06:21 RBC (3.80-5.40) m/uL MCV (80.0-100.0) fL MCH (25.0-35.0) pg Eosinophils # (0-0.7) k/uL APTT (22.0-30.0) sec Creatinine 0.5 L (0.6-1.5) mg/dL BUN/Creatinine Ratio 29.40 H (12.00-20.00) Ratio Total Protein 6.1 L (6.2-8.2) g/dL Albumin 3.4 L (3.8-4.9) g/dL Albumin/Globulin Ratio 1.26 L (1.60-3.17) g/dL Urine Blood Small H Small H (Negative) Ur Leukocyte Esterase Trace H Small H (Negative) Urine RBC 6 H 9 H (0-5) /hpf Urine WBC 7 H 14 H (0-5) /hpf Urine Bacteria Rare H Rare H (None) /hpf 06/14/21 06/14/21 Range/Units 06:31 06:31 RBC 3.40 L (3.80-5.40) m/uL MCV 107.7 H (80.0-100.0) fL MCH 35.6 H (25.0-35.0) pg Eosinophils # 0.9 H (0-0.7) k/uL APTT 40.7 H (22.0-30.0) sec Creatinine (0.6-1.5) mg/dL BUN/Creatinine Ratio (12.00-20.00) Ratio Total Protein (6.2-8.2) g/dL Albumin (3.8-4.9) g/dL Albumin/Globulin Ratio (1.60-3.17) g/dL Urine Blood (Negative) Ur Leukocyte Esterase (Negative) Urine RBC (0-5) /hpf Urine WBC (0-5) /hpf Urine Bacteria (None) /hpf Microbiology - Last 24 Hours (Table) 06/12/21 20:15 Blood Culture - Preliminary Blood No Growth after 24 hours 06/12/21 20:00 Blood Culture - Preliminary Blood No Growth after 24 hours Assessment and Plan Assessment: Assessment #1 acute hypoxic respiratory failure which has improved #2 evidence of myocardial injury without any evidence of ischemia #3 severe change in mental status #4 multiple comorbid conditions Plan #1 consider conservative medical approach at this point #2 DC heparin #3 continue aspirin and statin and beta dorene #4 follow-up with the patient
--- NOTE | 2021-06-14 12:24 | P.DS ---
Providers Date of admission: 06/12/21 19:18 Attending physician: Herrera Hernandez MD Consults: 06/13/21 04:16 Consult Physician Urgent Consulting Provider: Richard Saenz Consult Reason/Comments: pt trop increased. pt trop 0.187 Do you want consulting provider notified?: Already Contacted Primary care physician: Luis Wan [facility] Course: Diagnoses: Possible acute urinary tract infection Elevated troponin, cardiac causes were ruled out and patient is asymptomatic Episodic hypoxia during showering, could be a false reading, false-positive test. Chronic leukocytosis with a slight recent worsening hypertension Hyperlipidemia Diabetes mellitus History of advanced dementia and memory impairment, patient is nonverbal at baseline History of osteoarthritis, degenerative disc disease and chronic low back pain History of Sleep apnea History of Confusion most of the time. History Vitamin D deficiency History of anxiety and depression History of back surgery Hospital course This is a pleasant 76 years old female with past medical history of Dementia, Hyperlipidemia, Hypertension, Memory Impairment, Osteoarthritis, Sleep Apnea/CPAP/BIPAP, Frontal lobe impairment, confused most of the time, impulsive, NIDDM type II, UTIs, iron anemia, hypokalemia, vitamin D deficiency, constipation, diverticular disease, DDD, low back pain, occasional incontinence, s/p Back Surgery, Anxiety, Depression. She is a patient of Dr. wan Records patient is normally alert 0 and non-verbal, she was taking a shower with staff when she becomes Cyanotic and her pulse ox dropped on admission she is 82% on room air went up quickly 98% on 2 L. Currently her vitals are stable CT of the chest colonic negative for acute pulmonary embolism. Large pulmonary trunk to suggest an underlying pulmonary hypertension. However her troponin was slightly elevated at 0.12. Diamond Sander evaluated the patient and she remains asymptomatic. She was treated with heparin drip for 24 hours. Today care navigator saw her again and cleared her for discharge This breathing quietly and normal and she is saturating 95% on room air, patient monitored for more than 24 hours and her respiratory function is stable. Urine analysis was mildly abnormal 2. There may be some elements of acute urinary tract infection. Patient was started on ceftriaxone and she can finish three-day course of oral antibiotics upon discharge Patient is able to eat but she has to be fed, she eats everything placed in her mouth per staff. Because patient nonverbal, not able to be cleaned off when she soil or wet herself, or ask for food When she feels hungry it looks like she has advanced/end-stage dementia and she might benefit from palliative consult as an outpatient Patient was found stable and can be discharged ECF in guarded prognosis however he needs follow-up as an outpatient. Patient was instructed to follow up with PCP within one week Physical exam -Gen: patient is a AAOx0, nonverbal at baseline, does not follow commands, no distress CVS: S1-S2, RRR, no murmur Lungs: B/L CTA, no wheezing Abdomen: soft, no distention, no tenderness, positive bowel sounds Extremity: no leg edema or induration Time spent more than 35 minutes Patient Condition at Discharge: Stable Plan - Discharge Summary Discharge Rx Participant: No New Discharge Prescriptions: No Action Lactulose 10 gm PO BID@0900,2099 metFORMIN HCL [Glucophage] 500 mg PO BID@09,2099 Atorvastatin [Lipitor] 20 mg PO HS@2099 Metoprolol Tartrate [Lopressor] 12.5 mg PO BID@899,2099 Acetaminophen Tab [Tylenol] 500 mg PO TID@0600,1400,2200 HYDROcodone/APAP 5-325MG [[place] 5-325] 1 tab PO Q8H PRN PRN Reason: Pain Calcium Carb-Vit D 500Mg-5Mcg [[place] 500+D 5 Mcg (200 Iu)] 1 tab PO BID@0900,2099 buPROPion SR [Wellbutrin SR] 100 mg PO DAILY@0900 Cholecalciferol [Vitamin D3 (25 Mcg = 1000 Iu)] 50 mcg PO DAILY@0900 Folic Acid 0.4 mg PO DAILY@0900 Lactose-Reduced Food [Ensure Plus] 120 ml PO BID@0900,2099 Sennosides-Docusate Sodium [Senokot-S] 2 tab PO HS@2100 amLODIPine [Norvasc] 10 mg PO HS@2100 Aspirin EC [Ecotrin Low Dose] 81 mg PO DAILY@2099 Discharge Medication List Lactulose 10 gm PO BID@0900,209906/01/18 [History] Atorvastatin [Lipitor] 20 mg PO HS@2100 10/04/19 [History] metFORMIN HCL [Glucophage] 500 mg PO BID@0900,209910/04/19 [History] Metoprolol Tartrate [Lopressor] 12.5 mg PO BID@0900,209902/08/20 [History] Acetaminophen Tab [Tylenol] 500 mg PO TID@0600,1400,2200 04/29/20 [History] Calcium Carb-Vit D 500Mg-5Mcg [[place] 500+D 5 Mcg (200 Iu)] 1 tab PO BID@899,209904/29/20 [History] HYDROcodone/APAP 5-325MG [[place] 5-325] 1 tab PO Q8H PRN 04/29/20 [History] buPROPion SR [Wellbutrin SR] 100 mg PO DAILY@89904/29/20 [History] Cholecalciferol [Vitamin D3 (25 Mcg = 1000 Iu)] 50 mcg PO DAILY@89907/24/20 [History] Folic Acid 0.4 mg PO DAILY@89907/24/20 [History] Lactose-Reduced Food [Ensure Plus] 120 ml PO BID@899,209907/24/20 [History] Sennosides-Docusate Sodium [Senokot-S] 2 tab PO HS@209903/12/21 [History] amLODIPine [Norvasc] 10 mg PO HS@209903/12/21 [History] Aspirin EC [Ecotrin Low Dose] 81 mg PO DAILY@209906/12/21 [History] Follow up Appointment(s)/Referral(s): Luis Wan MD [Primary Care Provider] - 1-2 days
[2021-06-14 14:40] LABS: INR 1.1 (<1.2); Prothrombin Time 11.2 sec (9.0-12.0)
[2021-06-14] MEDS: amLODIPine 10 MG TAB PO SCH (20:19)
[2021-06-14] MEDS: ATORVASTATIN 20 MG TAB PO SCH (20:19)
[2021-06-14] MEDS: ASPIRIN 81 MG PO SCH (20:20)
--- NOTE | 2021-06-15 08:31 | P.PN ---
Subjective Progress Note Date: 06/15/21 Principal diagnosis: Abnormal cardiac enzymes This is a 76-year-old female patient with a past medical history significant for severe underlying dementia and a change in mental status as well as multiple comorbid conditions were requested to see for abnormal troponin after hypoxemia likely secondary to aspiration. We advised medical treatment for the mildly abnormal troponin. The patient was seen this morning. No indication that she was experiencing any symptoms of chest pain or chest discomfort or any shortness of breath or dizziness or lightheadedness. She has been maintaining normal sinus rhythm and she is hypertensive as well. In the past she was restarted on metoprolol and I'm going to increase the dose since her pressure allow. From the cardiac standpoint otherwise the patient can be discharged home. She continues also to be on aspirin as well as a statin. Objective - Vital Signs Vital signs: Vital Signs Temp 98.0 F 06/15/21 04:00 Pulse 75 06/15/21 04:00 Resp 16 06/15/21 04:00 BP 154/83 06/15/21 04:00 Pulse Ox 97 06/15/21 04:00 Intake & Output 06/14/21 06/15/21 06/15/21 18:59 06:59 18:59 Intake Total 48.381 Output Total 1 Balance 48.381 -1 Weight 87.5 kg Intake: Intake, IV Titration 48.381 Amount Heparin Sod,Pork in 0.45% 48.381 NaCl 25,000 unit In 0.45 % NaCl 1 250ml.bag @ 9.59 UNITS/KG/HR 10.005 mls/ hr IV .Q24H [facility] Rx#: [id number] Output: Urine 1 Other: Voiding Method Diaper Incontinent # Voids 2 1 - Constitutional General appearance: Present: no acute distress - Respiratory Respiratory: bilateral: diminished - Cardiovascular Rhythm: regular - Labs CBC & Chem 7: 06/14/21 06:31 06/13/21 05:45 Labs: Microbiology - Last 24 Hours (Table) 06/12/21 20:15 Blood Culture - Preliminary Blood No Growth after 48 hours 06/12/21 20:00 Blood Culture - Preliminary Blood No Growth after 48 hours Assessment and Plan Assessment: Assessment #1 acute hypoxic respiratory failure which has improved #2 evidence of myocardial injury without any evidence of ischemia #3 severe change in mental status #4 multiple comorbid conditions Plan #1 consider conservative medical approach at this point #2 increase the dose of metoprolol #3 continue aspirin and statin and beta dorene #4 follow-up with the patient on when necessary case
[2021-06-15] MEDS: METOPROLOL TARTRATE 25 MG TAB PO SCH ×2 (10:04→20:39)
--- NOTE | 2021-06-15 12:47 | P.PN ---
Subjective This is a pleasant 76 years old female with past medical history of Dementia, Hyperlipidemia, Hypertension, Memory Impairment, Osteoarthritis, Sleep Apnea/CPAP/BIPAP, Frontal lobe impairment, confused most of the time, impulsive, NIDDM type II, UTIs, iron anemia, hypokalemia, vitamin D deficiency, constipation, diverticular disease, DDD, low back pain, occasional incontinence, s/p Back Surgery, Anxiety, Depression. She is a patient of Dr. nhung Thurman patient is normally alert 0 and non-verbal, she was taking a shower with staff when she becomes Cyanotic and her pulse ox dropped on admission she is 82% on room air went up quickly 98% on 2 L. Currently her vitals are stable CT of the chest colonic negative for acute pulmonary embolism. Large pulmonary trunk to suggest an underlying pulmonary hypertension. However her troponin was slightly elevated at 0.12. Console Assembler evaluated the patient and she remains asymptomatic. She was treated with heparin drip for 24 hours. Today cold working supervisor saw her again and cleared her for discharge This breathing quietly and normal and she is saturating 95% on room air, patient monitored for more than 24 hours and her respiratory function is stable. Urine analysis was mildly abnormal 2. There may be some elements of acute urinary tract infection. Patient was started on ceftriaxone and she can finish three-day course of oral antibiotics upon discharge Patient is able to eat but she has to be fed, she eats everything placed in her mouth per staff. Because patient nonverbal, not able to be cleaned off when she soil or wet herself, or ask for food When she feels hungry it looks like she has advanced/end-stage dementia and she might benefit from palliative consult as an outpatient Patient was found stable and can be discharged ECF in guarded prognosis however he needs follow-up as an outpatient. Patient was instructed to follow up with PCP within one week 06/15/2021 Patient clinically doing well and stable Patient was cleared by cold working supervisor for discharge Patient Is clinically stable be discharged and supposed to go yesterday pending placement, because its weakened patient will be going to her ECF tomorrow Objective - Vital Signs Vital signs: Vital Signs Temp 98.0 F 06/15/21 04:00 Pulse 75 06/15/21 04:00 Resp 16 06/15/21 04:00 BP 154/83 06/15/21 04:00 Pulse Ox 97 06/15/21 04:00 Intake & Output 06/14/21 06/15/21 06/15/21 18:59 06:59 18:59 Intake Total 48.381 Output Total 1 Balance 48.381 -1 Weight 87.5 kg Intake: Intake, IV Titration 48.381 Amount Heparin Sod,Pork in 0.45% 48.381 NaCl 25,000 unit In 0.45 % NaCl 1 250ml.bag @ 9.59 UNITS/KG/HR 10.005 mls/ hr IV .Q24H [facility] Rx#: [id number] Output: Urine 1 Other: Voiding Method Diaper Incontinent # Voids 2 1 - Exam -GENERAL: The patient is alert and awake, patient is nonverbal at baseline, she has good attention span but he does not follow commands, not in any acute di stress. Obese HEENT: Pupils are round and equally reacting to light. EOMI. No scleral icterus. No conjunctival pallor. Normocephalic, atraumatic. No pharyngeal erythema. No thyromegaly. CARDIOVASCULAR: S1 and S2 present. No murmurs, rubs, or gallops. PULMONARY: Chest is clear to auscultation, no wheezing or crackles. ABDOMEN: Soft, nontender, nondistended, normoactive bowel sounds. No palpable organomegaly. MUSCULOSKELETAL: No joint swelling or deformity. EXTREMITIES: No cyanosis, clubbing, or pedal edema. NEUROLOGICAL: Gross neurological examination did not reveal any focal deficits. SKIN: No rashes. No petechiae - Labs CBC & Chem 7: 06/14/21 06:31 06/13/21 05:45 Labs: Microbiology - Last 24 Hours (Table) 06/12/21 20:15 Blood Culture - Preliminary Blood No Growth after 48 hours 06/12/21 20:00 Blood Culture - Preliminary Blood No Growth after 48 hours Assessment and Plan Assessment: Elevated troponin, cardiac causes were ruled out Episodic hypoxia during showering, could be a false reading, false-positive test. Chronic leukocytosis with a slight recent worsening hypertension Hyperlipidemia Diabetes mellitus History of advanced dementia and memory impairment, patient is nonverbal at baseline History of osteoarthritis, degenerative disc disease and chronic low back pain History of Sleep apnea History of Confusion most of the time. History Vitamin D deficiency History of anxiety and depression History of back surgery Plan: This is a pleasant 76 years old female who presents with possible elevated tropo lynn and hypoxia during showering. Currently her vitals are stable. Cleared for discharge by cold working supervisor Patient is medically clear for discharge pending placement Consider palliative consult as an outpatient Labs and medication were reviewed.. Continue same treatment. Continue with symptomatic treatment. Resume home medication. Monitor lytes and vitals. DVT and GI prophylaxis. Further recommendations depends on the clinical course of the patient DVT prophylaxis: Subcutaneous heparin GI Prophylaxis: Pepcid Prognosis is guarded. terminal operator prognosis is poor
[2021-06-15] MEDS: ASPIRIN 81 MG PO SCH (20:39)
[2021-06-15] MEDS: ATORVASTATIN 20 MG TAB PO SCH (20:39)
[2021-06-15] MEDS: amLODIPine 10 MG TAB PO SCH (20:39)
--- NOTE | 2021-06-16 07:55 | P.DS ---
Providers Date of admission: 06/12/21 19:18 Attending physician: Herrera Hernandez MD Consults: 06/13/21 04:16 Consult Physician Urgent Consulting Provider: Richard Saenz Consult Reason/Comments: pt trop increased. pt trop 0.187 Do you want consulting provider notified?: Already Contacted Primary care physician: Luis Wan Hospital Course: acute urinary tract infection Elevated troponin, cardiac causes were ruled out and patient is asymptomatic Episodic hypoxia during showering, could be a false reading, false-positive test. Chronic leukocytosis with a slight recent worsening hypertension Hyperlipidemia Diabetes mellitus History of advanced dementia and memory impairment, patient is nonverbal at baseline History of osteoarthritis, degenerative disc disease and chronic low back pain History of Sleep apnea History of Confusion most of the time. History Vitamin D deficiency History of anxiety and depression History of back surgery Hospital course This is a pleasant 76 years old female with past medical history of Dementia, Hyperlipidemia, Hypertension, Memory Impairment, Osteoarthritis, Sleep Apnea/CPAP/BIPAP, Frontal lobe impairment, confused most of the time, impulsive, NIDDM type II, UTIs, iron anemia, hypokalemia, vitamin D deficiency, constipation, diverticular disease, DDD, low back pain, occasional incontinence, s/p Back Surgery, Anxiety, Depression. She is a patient of Dr. wan Records patient is normally alert 0 and non-verbal, she was taking a shower with staff when she becomes Cyanotic and her pulse ox dropped on admission she is 82% on room air went up quickly 98% on 2 L. Currently her vitals are stable CT of the chest colonic negative for acute pulmonary embolism. Large pulmonary trunk to suggest an underlying pulmonary hypertension. However her troponin was slightly elevated at 0.12. Web Applications Programmer evaluated the patient and she remains asymptomatic. She was treated with heparin drip for 24 hours. Today chief science officer saw her again and cleared her for discharge This breathing quietly and normal and she is saturating 95% on room air, patient monitored for more than 24 hours and her respiratory function is stable. Urine analysis was mildly abnormal 2. There may be some elements of acute urinary tract infection. Patient was started on ceftriaxone and she finished he therapy and no need for systemic antibiotic upon discharge Patient is able to eat but she has to be fed, she eats everything placed in her mouth per staff. Because patient nonverbal, not able to be cleaned off when she soil or wet herself, or ask for food When she feels hungry it looks like she has advanced/end-stage dementia and she might benefit from palliative consult as an outpatient Patient was found stable and can be discharged ECF in guarded prognosis however he needs follow-up as an outpatient. Patient was instructed to follow up with PCP within one week Physical exam -Gen: patient is a AAOx0, nonverbal at baseline, does not follow commands, no distress CVS: S1-S2, RRR, no murmur Lungs: B/L CTA, no wheezing Abdomen: soft, no distention, no tenderness, positive bowel sounds Extremity: no leg edema or induration Time spent more than 35 minutes Patient Condition at Discharge: Stable Plan - Discharge Summary Discharge Rx Participant: No New Discharge Prescriptions: New Cefuroxime [Ceftin] 250 mg PO BID 3 Days #6 tab Continue Lactulose 10 gm PO BID@0900,2099 metFORMIN HCL [Glucophage] 500 mg PO BID@0900,2099 Atorvastatin [Lipitor] 20 mg PO HS@2099 Metoprolol Tartrate [Lopressor] 12.5 mg PO BID@0900,2099 Acetaminophen Tab [Tylenol] 500 mg PO TID@0600,1400,2200 Calcium Carb-Vit D 500Mg-5Mcg [Oscal 500+D 5 Mcg (200 Iu)] 1 tab PO BID@0900,2100 buPROPion SR [Wellbutrin SR] 100 mg PO DAILY@0900 Cholecalciferol [Vitamin D3 (25 Mcg = 1000 Iu)] 50 mcg PO DAILY@0900 Folic Acid 0.4 mg PO DAILY@0900 Lactose-Reduced Food [Ensure Plus] 120 ml PO BID@0900,2100 Sennosides-Docusate Sodium [Senokot-S] 2 tab PO HS@2100 amLODIPine [Norvasc] 10 mg PO HS@2100 Aspirin EC [Ecotrin Low Dose] 81 mg PO DAILY@2100 Discontinued HYDROcodone/APAP 5-325MG [[place] 5-325] 1 tab PO Q8H PRN PRN Reason: Pain Discharge Medication List Lactulose 10 gm PO BID@0900,2100 06/01/18 [History] Atorvastatin [Lipitor] 20 mg PO HS@2100 10/04/19 [History] metFORMIN HCL [Glucophage] 500 mg PO BID@0900,209910/04/19 [History] Metoprolol Tartrate [Lopressor] 12.5 mg PO BID@0900,209902/08/20 [History] Acetaminophen Tab [Tylenol] 500 mg PO TID@0600,1400,2200 04/29/20 [History] Calcium Carb-Vit D 500Mg-5Mcg [Oscal 500+D 5 Mcg (200 Iu)] 1 tab PO BID@0900,209904/29/20 [History] buPROPion SR [Wellbutrin SR] 100 mg PO DAILY@89904/29/20 [History] Cholecalciferol [Vitamin D3 (25 Mcg = 1000 Iu)] 50 mcg PO DAILY@89907/24/20 [History] Folic Acid 0.4 mg PO DAILY@89907/24/20 [History] Lactose-Reduced Food [Ensure Plus] 120 ml PO BID@899,209907/24/20 [History] Sennosides-Docusate Sodium [Senokot-S] 2 tab PO HS@209903/12/21 [History] amLODIPine [Norvasc] 10 mg PO HS@209903/12/21 [History] Aspirin EC [Ecotrin Low Dose] 81 mg PO DAILY@209906/12/21 [History] Cefuroxime [Ceftin] 250 mg PO BID 3 Days #6 tab 06/14/21 [Rx] Follow up Appointment(s)/Referral(s): Luis Wan MD [Primary Care Provider] - 1-2 days Patient Instructions/Handouts: Syncope (DC) Activity/Diet/Wound Care/Special Instructions: Resume previous diet Activity is restricted till you see your doctor Discharge Disposition: TRANSFER TO SNF/ECF
[2021-06-16 08:18] VITALS: RESP 16
[2021-06-16] MEDS: METOPROLOL TARTRATE 25 MG TAB PO SCH (08:50)
[2021-06-16 11:18] VITALS: BP 133/56; PULSE 76; TEMP 98.6
== END 2021-06-16 15:36 | DRG 690 ==
LOC: EC 15:25 → 5NMEDONC 19:18 → 3SCARD 23:34
PROVIDERS: ADMIT Internal Medicine; ATTEND Internal Medicine
DX: N39.0 Urinary tract infection, site not specified (principal); I24.8 Other forms of acute ischemic heart disease; Z20.822 Contact with and (suspected) exposure to COVID-19; D75.89 Other specified diseases of blood and blood-forming organs; E11.9 Type 2 diabetes mellitus without complications; E78.5 Hyperlipidemia, unspecified; E86.0 Dehydration; F03.90 Unspecified dementia, unspecified severity, without behavioral disturbance, psychotic disturbance, mood disturbance, and anxiety; F32.A Depression, unspecified; F41.9 Anxiety disorder, unspecified; I10 Essential (primary) hypertension; Z79.899 Other long term (current) drug therapy; Z79.84 Long term (current) use of oral hypoglycemic drugs; Z79.82 Long term (current) use of aspirin; D64.9 Anemia, unspecified; E55.9 Vitamin D deficiency, unspecified; E87.6 Hypokalemia; G89.29 Other chronic pain; M54.50 Low back pain, unspecified; M19.90 Unspecified osteoarthritis, unspecified site; R79.89 Other specified abnormal findings of blood chemistry; R09.02 Hypoxemia
CPT/HCPCS: 36415; 70360; 71046; 71275; 80053; 81001; 83605; 83735; 84484; 85025; 85379; 85610; 85730; 87040; 87635; 93005; 99285

== ENCOUNTER 2021-10-10 03:21 | Emergency (ER) | payer MEDICARE, OTHER ==
--- NOTE | 2021-10-10 04:04 | ED ---
General Adult HPI - General Source: patient, EMS Mode of arrival: EMS Limitations: physical limitation - History of Present Illness -: hour(s) Improves with: none Worsens with: none Associated Symptoms: denies other symptoms Treatments Prior to Arrival: none <Billy Melo - Last Filed: 10/10/21 06:56> <Aditya Lerma - Last Filed: 10/10/21 10:45> - General Chief complaint: GI Bleed Stated complaint: Abd Pain Time Seen by Provider: 10/10/21 03:36 - History of Present Illness Initial comments: This patient is 76-year-old woman sent from [facility] to have evaluation for an episode of coffee-ground emesis that occurred tonight. The patient is not able to give any history herself. She is noted to have history of dementia. (Billy Melo) - Related Data Home Medications Medication Instructions Recorded Confirmed Lactulose 10 gm PO BID@0900,209906/01/18 10/10/21 Atorvastatin [Lipitor] 20 mg PO HS@209910/04/19 10/10/21 metFORMIN HCL [Glucophage] 500 mg PO BID@0900,209910/04/19 10/10/21 Acetaminophen Tab [Tylenol] 500 mg PO TID@0600,1400,2200 04/29/20 10/10/21 Calcium Carb-Vit D 500Mg-5Mcg 1 tab PO BID@0900,209904/29/20 10/10/21 [Oscal 500+D 5 Mcg (200 Iu)] Cholecalciferol [Vitamin D3 (25 50 mcg PO DAILY@89907/24/20 10/10/21 Mcg = 1000 Iu)] Folic Acid 0.4 mg PO DAILY@89907/24/20 10/10/21 Sennosides-Docusate Sodium 2 tab PO HS@209903/12/21 10/10/21 [Senokot-S] amLODIPine [Norvasc] 10 mg PO HS@209903/12/21 10/10/21 Aspirin EC [Ecotrin Low Dose] 81 mg PO HS@209906/12/21 10/10/21 Bupropion Powder 50 mg PO BID@0900,209910/10/21 10/10/21 Metoprolol Tartrate [Lopressor] 12.5 mg PO BID@0900,2100 10/10/21 10/10/21 Z-Guard 1 applic TOPICAL Q12H 10/10/21 10/10/21 Previous Rx's Medication Instructions Recorded Albuterol Inhaler [Ventolin Hfa 1 puff INHALATION RT-QID #8 gm 10/10/21 Inhaler] Sulfamethox-Tmp 800-160Mg [Bactrim 1 tab PO Q12HR 7 Days #14 tab 10/10/21 DS 800-160 mg] predniSONE [Deltasone] 40 mg PO DAILY 5 Days #10 tab 10/10/21 Allergies Allergy/AdvReac Type Severity Reaction Status Date / Time aspirin Allergy Mild Nausea Verified 10/10/21 07:07 codeine Allergy Mild Nausea Verified 10/10/21 07:07 Penicillins Allergy Unknown Unknown Verified 10/10/21 07:07 cod Allergy Severe Unknown Uncoded 10/10/21 03:28 Review of Systems ROS Other: All systems not noted in ROS Statement are negative. Limitations: ROS unobtainable due to patients medical condition <Billy Melo - Last Filed: 10/10/21 06:56> ROS Other: All systems not noted in ROS Statement are negative. <Aditya Lerma - Last Filed: 10/10/21 10:45> ROS Statement: Those systems with pertinent positive or pertinent negative responses have been documented in the HPI. Past Medical History Past Medical History: Chest Pain / Angina, Dementia, Hyperlipidemia, Hypertension, Memory Impairment, Osteoarthritis (OA), Sleep Apnea/CPAP/BIPAP Additional Past Medical History / Comment(s): Frontal lobe impairment, confused most of the time, impulsive, NIDDM type II, UTIs, UTI with sepsis, protein calorie malnutrition, iron anemia, hypokalemia, vitamin D deficiency, co nstipation, diverticular disease, DDD, low back pain, occasional incontinence, ubaldo denied hx of asthma. History of Any Multi-Drug Resistant Organisms: None Reported Past Surgical History: Back Surgery Additional Past Surgical History / Comment(s): Colonoscopy Past Anesthesia/Blood Transfusion Reactions: No Reported Reaction Past Psychological History: Anxiety, Depression Smoking Status: Unknown if ever smoked Past Alcohol Use History: Occasional Past Drug Use History: None Reported - Past Family History Father Family Medical History: Cancer Additional Family Medical History / Comment(s): Ubaldo does not know type of cancer. Mother Additional Family Medical History / Comment(s): HEART DISEASE <KameronBilly Radha Filed: 10/10/21 06:56> General Exam Limitations: no limitations General appearance: alert, in no apparent distress Head exam: Present: atraumatic, normocephalic Eye exam: Present: normal appearance. Absent: scleral icterus, conjunctival injection Neck exam: Present: full ROM. Absent: tenderness Respiratory exam: Present: rhonchi. Absent: wheezes, rales, stridor Cardiovascular Exam: Present: regular rate, normal rhythm, normal heart sounds. Absent: systolic murmur, diastolic murmur, rubs, gallop GI/Abdominal exam: Present: soft. Absent: distended, tenderness, guarding, rebound, rigid, mass Extremities exam: Present: normal inspection, normal capillary refill. Absent: pedal edema, calf tenderness Back exam: Present: normal inspection. Absent: CVA tenderness (R), CVA tenderness (L) Neurological exam: Present: alert Skin exam: Present: warm, dry, intact, normal color. Absent: rash <KameronBilly Radha Filed: 10/10/21 06:56> Course Vital Signs 10/10/21 10/10/21 10/10/21 03:22 04:27 05:00 Temperature 98.6 F Pulse Rate 90 92 88 Respiratory 26 H 22 22 Rate Blood Pressure 138/96 136/96 129/81 O2 Sat by Pulse 97 97 96 Oximetry 10/10/21 10/10/21 10/10/21 06:00 07:00 07:45 Temperature 98.6 F 98.6 F Pulse Rate 87 87 71 Respiratory 20 22 16 Rate Blood Pressure 139/82 140/83 153/72 O2 Sat by Pulse 96 96 96 Oximetry 10/10/21 10/10/21 10/10/21 08:27 08:36 10:23 Temperature Pulse Rate 80 80 82 Respiratory 15 Rate Blood Pressure 146/83 O2 Sat by Pulse 98 Oximetry EKG Findings - EKG Results: EKG: interpreted by ERMD, sinus rhythm (Rate 95 bpm), normal axis, normal QRS - Blocks, [place], Hypertrophy, ST Abn: Repolarization changes or abnormalities: nonspecific abnormality, ST segment, and/or T wave <Billy Melo Last Filed: 10/10/21 06:56> Medical Decision Making - Lab Data Result diagrams: 10/10/21 03:54 10/10/21 03:54 <Billy Melo - Last Filed: 10/10/21 06:56> - Lab Data Result diagrams: 10/10/21 03:54 10/10/21 03:54 <Aditya Lerma - Last Filed: 10/10/21 10:45> - Medical Decision Making Patient is a 76-year-old female that was signed out to me by the primary doctor for concern for an episode of hematemesis at the nursing facility. She is been stable since she cut her with stable vital signs. She does have some wheezing which is likely bronchospasm without any history COPD or asthma. She is not in any acute distress at this time. Laboratory studies were remarkable for mild leukocytosis of 13.3. Lactic acid was initially found to be 3.2 which appears dehydrated. Urinalysis, repeat lactate is pending at this time. Chest x-ray was also pending at this time. Repeat lactate following IV fluid hydration is within normal limits at 1.5. Patient is a UTI and she was administered IV Rocephin will be discharged home on IV antibiotics. Chest x-ray showed no acute cardiopulmonary process. We did speak with the patient's guardian over the phone at [phone]. They're concerned, as the patient was having issues with tolerating oral intake at her facility and there was a questionable hematemesis as well. She has not had any issues here. She is tolerating oral intake with water and crackers. However we will obtain a CT abdomen and pelvis at this time to evaluate for acute intra-abd ominal process. Patient is otherwise asymptomatic and within normal limits and stable. Patient does have history of dementia and cannot corroborate any story. CT abdomen and pelvis shows no acute abnormality acute findings. On reevaluation, patient remains stable and within normal limits. She'll be discharged home at this time. Attempted to call back patient's guardian, however received no answer. This was done multiple times at [phone]. Patient was sent back to her facility. I will provide the patient with a prescription for Bactrim, prednisone, albuterol inhaler. I instructed the patient to follow up with their PCP in the next 3 days. I explained that the patient should return to the emergency department if they experience any worsening symptoms. Strict return precautions were discussed with the patient. The patient expressed understanding of these instructions. I answered all questions that the patient had. The patient was discharged home in good condition with their prescriptions and follow up information. (Aditya Lerma) - Lab Data Lab Results 10/10/21 10/10/21 10/10/21 Range/Units 03:54 03:54 03:54 WBC 13.3 H (3.8-10.6) k/uL RBC 3.82 (3.80-5.40) m/uL Hgb 13.0 (11.4-16.0) gm/dL Hct 40.2 (34.0-46.0) % MCV 105.0 H (80.0-100.0) fL MCH 33.9 (25.0-35.0) pg MCHC 32.3 (31.0-37.0) g/dL RDW 12.9 (11.5-15.5) % Plt Count 303 (150-450) k/uL MPV 7.9 Neutrophils % 79 % Lymphocytes % 12 % Monocytes % 6 % Eosinophils % 2 % Basophils % 1 % Neutrophils # 10.4 H (1.3-7.7) k/uL Lymphocytes # 1.5 (1.0-4.8) k/uL Monocytes # 0.9 (0-1.0) k/uL Eosinophils # 0.3 (0-0.7) k/uL Basophils # 0.1 (0-0.2) k/uL Macrocytosis Slight PT (9.0-12.0) sec INR (<1.2) APTT (22.0-30.0) sec Sodium 140 (137-145) mmol/L Potassium 4.6 (3.5-5.1) mmol/L Chloride 103 (98-107) mmol/L Carbon Dioxide 26 (22-30) mmol/L Anion Gap 11 mmol/L BUN 17 (7-17) mg/dL Creatinine 0.62 (0.52-1.04) mg/dL Est GFR (CKD-EPI)AfAm >90 (>60 ml/min/1.73 sqM) Est GFR (CKD-EPI)NonAf 89 (>60 ml/min/1.73 sqM) Glucose 117 H (74-99) mg/dL Lactic Ac Sepsis Rflx Plasma Lactic Acid Aren 3.2 H* (0.7-2.0) mmol/L Calcium 9.7 (8.4-10.2) mg/dL Total Bilirubin 0.9 (0.2-1.3) mg/dL AST 32 (14-36) U/L ALT 17 (4-34) U/L Alkaline Phosphatase 94 (38-126) U/L Troponin I (0.000-0.034) ng/mL Total Protein 8.0 (6.3-8.2) g/dL Albumin 4.3 (3.5-5.0) g/dL Urine Color Urine Appearance (Clear) Urine pH (5.0-8.0) Ur Specific [place] (1.001-1.035) Urine Protein (Negative) Urine Glucose (UA) (Negative) Urine Ketones (Negative) Urine Blood (Negative) Urine Nitrite (Negative) Urine Bilirubin (Negative) Urine Urobilinogen (<2.0) mg/dL Ur Leukocyte Esterase (Negative) Urine RBC (0-5) /hpf Urine WBC (0-5) /hpf Ur Squamous Epith Cells (0-4) /hpf Urine Bacteria (None) /hpf Urine Mucus (None) /hpf Blood Type Blood Type Recheck Bld Type Recheck Status Antibody Screen Spec Expiration Date 10/10/21 10/10/21 10/10/21 Range/Units 03:54 03:54 04:48 WBC (3.8-10.6) k/uL RBC (3.80-5.40) m/uL Hgb (11.4-16.0) gm/dL Hct (34.0-46.0) % MCV (80.0-100.0) fL MCH (25.0-35.0) pg MCHC (31.0-37.0) g/dL RDW (11.5-15.5) % Plt Count (150-450) k/uL MPV Neutrophils % % Lymphocytes % % Monocytes % % Eosinophils % % Basophils % % Neutrophils # (1.3-7.7) k/uL Lymphocytes # (1.0-4.8) k/uL Monocytes # (0-1.0) k/uL Eosinophils # (0-0.7) k/uL Basophils # (0-0.2) k/uL Macrocytosis PT (9.0-12.0) sec INR (<1.2) APTT (22.0-30.0) sec Sodium (137-145) mmol/L Potassium (3.5-5.1) mmol/L Chloride (98-107) mmol/L Carbon Dioxide (22-30) mmol/L Anion Gap mmol/L BUN (7-17) mg/dL Creatinine (0.52-1.04) mg/dL Est GFR (CKD-EPI)AfAm (>60 ml/min/1.73 sqM) Est GFR (CKD-EPI)NonAf (>60 ml/min/1.73 sqM) Glucose (74-99) mg/dL Lactic Ac Sepsis Rflx Y Plasma Lactic Acid Aren (0.7-2.0) mmol/L Calcium (8.4-10.2) mg/dL Total Bilirubin (0.2-1.3) mg/dL AST (14-36) U/L ALT (4-34) U/L Alkaline Phosphatase (38-126) U/L Troponin I <0.012 (0.000-0.034) ng/mL Total Protein (6.3-8.2) g/dL Albumin (3.5-5.0) g/dL Urine Color Urine Appearance (Clear) Urine pH (5.0-8.0) Ur Specific [place] (1.001-1.035) Urine Protein (Negative) Urine Glucose (UA) (Negative) Urine Ketones (Negative) Urine Blood (Negative) Urine Nitrite (Negative) Urine Bilirubin (Negative) Urine Urobilinogen (<2.0) mg/dL Ur Leukocyte Esterase (Negative) Urine RBC (0-5) /hpf Urine WBC (0-5) /hpf Ur Squamous Epith Cells (0-4) /hpf Urine Bacteria (None) /hpf Urine Mucus (None) /hpf Blood Type O Negative Blood Type Recheck O Neg Bld Type Recheck Status No Antibody Screen NEGATIVE Spec Expiration Date 10/13/2021235310/10/21 10/10/21 10/10/21 Range/Units 07:34 07:37 07:45 WBC (3.8-10.6) k/uL RBC (3.80-5.40) m/uL Hgb (11.4-16.0) gm/dL Hct (34.0-46.0) % MCV (80.0-100.0) fL MCH (25.0-35.0) pg MCHC (31.0-37.0) g/dL RDW (11.5-15.5) % Plt Count (150-450) k/uL MPV Neutrophils % % Lymphocytes % % Monocytes % % Eosinophils % % Basophils % % Neutrophils # (1.3-7.7) k/uL Lymphocytes # (1.0-4.8) k/uL Monocytes # (0-1.0) k/uL Eosinophils # (0-0.7) k/uL Basophils # (0-0.2) k/uL Macrocytosis PT 10.4 (9.0-12.0) sec INR 0.9 (<1.2) APTT 21.5 L (22.0-30.0) sec Sodium (137-145) mmol/L Potassium (3.5-5.1) mmol/L Chloride (98-107) mmol/L Carbon Dioxide (22-30) mmol/L Anion Gap mmol/L BUN (7-17) mg/dL Creatinine (0.52-1.04) mg/dL Est GFR (CKD-EPI)AfAm (>60 ml/min/1.73 sqM) Est GFR (CKD-EPI)NonAf (>60 ml/min/1.73 sqM) Glucose (74-99) mg/dL Lactic Ac Sepsis Rflx Plasma Lactic Acid Aren 1.5 (0.7-2.0) mmol/L Calcium (8.4-10.2) mg/dL Total Bilirubin (0.2-1.3) mg/dL AST (14-36) U/L ALT (4-34) U/L Alkaline Phosphatase (38-126) U/L Troponin I (0.000-0.034) ng/mL Total Protein (6.3-8.2) g/dL Albumin (3.5-5.0) g/dL Urine Color Yellow Urine Appearance Cloudy H (Clear) Urine pH 6.5 (5.0-8.0) Ur Specific [place] 1.015 (1.001-1.035) Urine Protein Trace H (Negative) Urine Glucose (UA) Negative (Negative) Urine Ketones Negative (Negative) Urine Blood Moderate H (Negative) Urine Nitrite Positive H (Negative) Urine Bilirubin Negative (Negative) Urine Urobilinogen <2.0 (<2.0) mg/dL Ur Leukocyte Esterase Large H (Negative) Urine RBC 15 H (0-5) /hpf Urine WBC 134 H (0-5) /hpf Ur Squamous Epith Cells <1 (0-4) /hpf Urine Bacteria Moderate H (None) /hpf Urine Mucus Rare H (None) /hpf Blood Type Blood Type Recheck Bld Type Recheck Status Antibody Screen Spec Expiration Date Disposition <Billy Melo - Last Filed: 10/10/21 06:56> Is patient prescribed a controlled substance at d/c from ED?: No Time of Disposition: 10:30 <Aditya Lerma - Last Filed: 10/10/21 10:45> Clinical Impression: UTI (urinary tract infection), Vomiting, Dementia, Bronchospasm Disposition: HOME SELF-CARE Condition: Good Prescriptions: Sulfamethox-Tmp 800-160Mg [Bactrim DS 800-160 mg] 1 tab PO Q12HR 7 Days #14 tab predniSONE [Deltasone] 40 mg PO DAILY 5 Days #10 tab Albuterol Inhaler [Ventolin Hfa Inhaler] 1 puff INHALATION RT-QID #8 gm Referrals: Luis Wan MD [Primary Care Provider] - 1-2 days
[2021-10-10 04:25] LABS: Basophils # (A) 0.1 k/uL (0-0.2); Basophils % (A) 1 %; Eosinophils # (A) 0.3 k/uL (0-0.7); Eosinophils % (A) 2 %; HCT 40.2 % (34.0-46.0); Lymphocytes # (A) 1.5 k/uL (1.0-4.8); Lymphocytes % (A) 12 %; MCH 33.9 pg (25.0-35.0); MCHC 32.3 g/dL (31.0-37.0); Macrocytosis Slight; Mean Platelet Volume 7.9; Monocytes # (A) 0.9 k/uL (0-1.0); Monocytes % (A) 6 %; Neutrophils # (A) 10.4 k/uL (1.3-7.7); Neutrophils % (A) 79 %; Platelet Count 303 k/uL (150-450); RBC 3.82 m/uL (3.80-5.40); RDW 12.9 % (11.5-15.5); WBC 13.3 k/uL (3.8-10.6)
[2021-10-10 04:32] LABS: ALT 17 U/L (4-34); AST 32 U/L (14-36); African American GFR (CKD) >90 (>60 ml/min/1.73 sqM); Albumin 4.3 g/dL (3.5-5.0); Alkaline Phosphatase 94 U/L (38-126); Anion Gap 11 mmol/L; Blood Urea Nitrogen 17 mg/dL (7-17); Calcium 9.7 mg/dL (8.4-10.2); Carbon Dioxide 26 mmol/L (22-30); Chloride 103 mmol/L (98-107); Glucose 117 mg/dL (74-99); Non-African American GFR(CKD) 89 (>60 ml/min/1.73 sqM); Potassium 4.6 mmol/L (3.5-5.1); Sodium 140 mmol/L (137-145); Total Bilirubin 0.9 mg/dL (0.2-1.3)
[2021-10-10] MEDS ORDERED: SODIUM CHLORIDE 0.9% 1,000 ML IV ONE (04:46)
[2021-10-10] MEDS ORDERED: SODIUM CHLORIDE 0.9% 1,000 ML IV STA (04:46)
--- NOTE | 2021-10-10 07:29 | XR ---
EXAMINATION TYPE: XR chest 1V DATE OF EXAM: 10/10/2021 COMPARISON: Chest x-ray June 12, 2021 HISTORY: Pain and vomiting. TECHNIQUE: Single frontal view of the chest is obtained. FINDINGS: There is mild chronic parenchymal change without suspicious focal air space opacity, pleur al effusion, or pneumothorax seen. The cardiac silhouette size is upper limits of normal with ectati c thoracic aorta. The osseous structures are somewhat demineralized. IMPRESSION: No acute process. No significant change from prior.
[2021-10-10] MEDS ORDERED: methylPREDNISolone SOD SUCCI 125 MG/2 ML VIAL IV STA (07:59)
[2021-10-10] MEDS ORDERED: IPRATROPIUM-ALBUTEROL 3 ML NEB INHALATION STA (07:59)
[2021-10-10 08:13] LABS: Appearance,Urine Cloudy (Clear); Bacteria,Urine Moderate /hpf; Bilirubin,Urine Negative (Negative); Blood,Urine Moderate (Negative); Color,Urine Yellow; Glucose,Urine (UA) Negative (Negative); Ketones,Urine Negative (Negative); Leukocyte Esterase,Urine Large (Negative); Mucus,Urine Rare /hpf; Nitrite,Urine Positive (Negative); PH, Urine 6.5 (5.0-8.0); Protein,Urine Trace (Negative); RBC,Urine 15 /hpf (0-5); Specific Gravity,Urine 1.015 (1.001-1.035); Squamous Epithelial Cell,Urine <1 /hpf (0-4); Urobilinogen,Urine <2.0 mg/dL (<2.0); WBC,Urine 134 /hpf (0-5)
[2021-10-10] MEDS ORDERED: cefTRIAXone IN SWFI 1,000 MG/10 ML SYRINGE IVP STA (08:19)
[2021-10-10 08:51] LABS: INR 0.9 (<1.2); Prothrombin Time 10.4 sec (9.0-12.0)
[2021-10-10 08:54] LABS: Partial Thromboplastin Time 21.5 sec (22.0-30.0)
--- NOTE | 2021-10-10 09:25 | CT ---
EXAMINATION TYPE: CT abdomen pelvis w con DATE OF EXAM: 10/10/2021 COMPARISON: CT dated 05/06/2015 HISTORY: Vomiting and epigastric pain CT DLP: 2054.9 mGycm Automated exposure control for dose reduction was used. TECHNIQUE: Helical acquisition of images was performed from the lung bases through the pelvis. CONTRAST: Performed without Oral Contrast and with IV Contrast, patient injected with 100 mL of Isovue 300. FINDINGS: Motion artifacts. LUNG BASES: Suspected cardiomegaly. LIVER/GB: No definite hepatic focal lesion. Dependent densities in the gallbladder neck which could r epresent sludge or calculi. No signs of acute cholecystitis. PANCREAS: Slightly atrophic with fatty infiltration, suboptimally assessed due to artifacts. SPLEEN: No significant abnormality is seen. ADRENALS: No significant abnormality is seen. KIDNEYS: Right extrarenal pelvis. No gross renal lesion or hydronephrosis bilaterally. Suspected left parapelvic renal cysts. FREE AIR: No free air is visualized. RETROPERITONEAL ADENOPATHY: None visualized REPRODUCTIVE ORGANS: No gross uterine or adnexal mass yet suboptimally assessed. URINARY BLADDER: Suspected perineal prolapse and cystocele, otherwise unremarkable urinary bladder. PELVIC ADENOPATHY: Scattered subcentimeter bilateral inguinal and to a lesser extent external iliac lymph nodes, nonspecific. OSSEOUS STRUCTURES: Right proximal femoral fixation with lumbar spinal fixation. Degenerative change s of the lower thoracic and lumbar spine. Osteopenia. No gross aggressive bone lesion. BOWEL: Unremarkable nondistended stomach, duodenum and small bowel. No evidence of bowel obstruction . Scattered uncomplicated colonic diverticulosis. No gross colonic mass however a small lesion cannot be excluded. OTHER: Aortic atherosclerotic calcifications. No sizable ascites. IMPRESSION: With the limitation of the artifactual images, no definite acute abnormality or suspicious lesion see n in the abdomen or the pelvis. Incidental findings as described above.
[2021-10-10] MEDS: LORazepam 2 MG/ML INJ IV STA ×2 (10:16→10:58)
[2021-10-10 11:05] VITALS: BP 133/60; RESP 18; TEMP 98.4
[2021-10-10 11:58] VITALS: PULSE 81
== END 2021-10-10 11:57 | disposition home or self-care (01) ==
LOC: EC 03:21
DX: N39.0 Urinary tract infection, site not specified (principal); R11.10 Vomiting, unspecified; F03.90 Unspecified dementia, unspecified severity, without behavioral disturbance, psychotic disturbance, mood disturbance, and anxiety; J98.01 Acute bronchospasm; E78.5 Hyperlipidemia, unspecified; I10 Essential (primary) hypertension; M19.90 Unspecified osteoarthritis, unspecified site; F41.9 Anxiety disorder, unspecified; F32.A Depression, unspecified; Z79.84 Long term (current) use of oral hypoglycemic drugs; Z79.82 Long term (current) use of aspirin; Z88.0 Allergy status to penicillin; Z88.5 Allergy status to narcotic agent
CPT/HCPCS: 99285; 96374; 96375; 96361 ×7; 36415; 94640; 93005; 86900; 86901; 80053; 83605; 84484; 85025; 85610; 85730; 86850; 81001; 71045; 74177; J2930; J0696; Q9967

== ENCOUNTER 2021-10-12 09:51 | Emergency (ER) | payer MEDICARE, OTHER ==
[2021-10-12 10:01] VITALS: TEMP 99.3
--- NOTE | 2021-10-12 11:06 | XR ---
EXAMINATION TYPE: XR chest 2V DATE OF EXAM: 10/12/2021 COMPARISON: Chest x-ray 2 days ago. HISTORY: Difficulty breathing and cough. TECHNIQUE: Frontal and lateral views of the chest are obtained. FINDINGS: There is no suspicious focal air space opacity, pleural effusion, or pneumothorax seen. Mi ld cardiomegaly. The osseous structures are intact. IMPRESSION: Mild cardiomegaly without acute pulmonary process.
[2021-10-12 11:21] LABS: Basophils # (A) 0.1 k/uL (0-0.2); Basophils % (A) 1 %; Eosinophils # (A) 0.3 k/uL (0-0.7); Eosinophils % (A) 2 %; HCT 37.4 % (34.0-46.0); HGB 12.1 gm/dL (11.4-16.0); Lymphocytes # (A) 1.3 k/uL (1.0-4.8); Lymphocytes % (A) 8 %; MCH 34.4 pg (25.0-35.0); MCHC 32.3 g/dL (31.0-37.0); MCV 106.3 fL (80.0-100.0); Macrocytosis Moderate; Mean Platelet Volume 7.8; Monocytes # (A) 0.7 k/uL (0-1.0); Monocytes % (A) 4 %; Neutrophils # (A) 14.4 k/uL (1.3-7.7); Neutrophils % (A) 86 %; Platelet Count 434 k/uL (150-450); RBC 3.52 m/uL (3.80-5.40); RDW 13.1 % (11.5-15.5); WBC 16.8 k/uL (3.8-10.6)
[2021-10-12 11:22] VITALS: BP 139/72
[2021-10-12 11:23] LABS: Appearance,Urine Clear (Clear); Bacteria,Urine Rare /hpf; Bilirubin,Urine Negative (Negative); Blood,Urine Moderate (Negative); Color,Urine Yellow; Glucose,Urine (UA) Negative (Negative); Ketones,Urine Negative (Negative); Leukocyte Esterase,Urine Trace (Negative); Mucus,Urine Occasional /hpf; Nitrite,Urine Negative (Negative); PH, Urine 6.5 (5.0-8.0); Protein,Urine Trace (Negative); RBC,Urine 17 /hpf (0-5); Specific Gravity,Urine 1.024 (1.001-1.035); Squamous Epithelial Cell,Urine 1 /hpf (0-4); Urobilinogen,Urine <2.0 mg/dL (<2.0); WBC,Urine 9 /hpf (0-5)
[2021-10-12 11:37] LABS: Albumin 3.9 g/dL (3.5-5.0); Calcium 9.2 mg/dL (8.4-10.2); Potassium 4.1 mmol/L (3.5-5.1); Total Bilirubin 0.4 mg/dL (0.2-1.3); Total Protein 7.3 g/dL (6.3-8.2)
[2021-10-12 11:50] LABS: INR 0.9 (<1.2); Prothrombin Time 10.2 sec (9.0-12.0)
[2021-10-12 12:17] LABS: Partial Thromboplastin Time 20.2 sec (22.0-30.0)
--- NOTE | 2021-10-12 12:30 | ED ---
General Adult HPI - General Chief complaint: Shortness of Breath Stated complaint: SOB Time Seen by Provider: 10/12/21 10:35 Source: family, EMS, RN notes reviewed, old records reviewed Mode of arrival: EMS Limitations: altered mental status - History of Present Illness Initial comments: Patient is a 76-year-old female who I recently evaluated. She is a history of dementia and is unable to provide any form of history. Was recently discharged with bronchospasm, as well as a UTI being treated with Bactrim presents he received department for evaluation for Noisy breathing. Patient has in the past even foreign objects. They do not believe this is happened recently. On exam she confronted no history. She is under mental status baseline. She does have mildly noisy breathing. I was able to discuss the patient with her guardian, who states that the patient has been a little more picky of an injury lately, and is concerned for possible throat irritation. No other acute complaints at this time. She she is working with speech therapy at her nursing facility. - Related Data Home Medications Medication Instructions Recorded Confirmed Lactulose 10 gm PO BID@899,209906/01/18 10/10/21 Atorvastatin [Lipitor] 20 mg PO HS@209910/04/19 10/10/21 metFORMIN HCL [Glucophage] 500 mg PO BID@899,209910/04/19 10/10/21 Acetaminophen Tab [Tylenol] 500 mg PO TID@0600,1400,2200 04/29/20 10/10/21 Calcium Carb-Vit D 500Mg-5Mcg 1 tab PO BID@899,209904/29/20 10/10/21 [Oscal 500+D 5 Mcg (200 Iu)] Cholecalciferol [Vitamin D3 (25 50 mcg PO DAILY@89907/24/20 10/10/21 Mcg = 1000 Iu)] Folic Acid 0.4 mg PO DAILY@89907/24/20 10/10/21 Sennosides-Docusate Sodium 2 tab PO HS@209903/12/21 10/10/21 [Senokot-S] amLODIPine [Norvasc] 10 mg PO HS@209903/12/21 10/10/21 Aspirin EC [Ecotrin Low Dose] 81 mg PO HS@209906/12/21 10/10/21 Bupropion Powder 50 mg PO BID@0900,2100 10/10/21 10/10/21 Metoprolol Tartrate [Lopressor] 12.5 mg PO BID@0900,2100 10/10/21 10/10/21 Z-Guard 1 applic TOPICAL Q12H 10/10/21 10/10/21 Previous Rx's Medication Instructions Recorded Albuterol Inhaler [Ventolin Hfa 1 puff INHALATION RT-QID #8 gm 10/10/21 Inhaler] Sulfamethox-Tmp 800-160Mg [Bactrim 1 tab PO Q12HR 7 Days #14 tab 10/10/21 DS 800-160 mg] predniSONE [Deltasone] 40 mg PO DAILY 5 Days #10 tab 10/10/21 Azithromycin 250 mg PO DAILY 4 Days #4 tab 10/12/21 Allergies Allergy/AdvReac Type Severity Reaction Status Date / Time aspirin Allergy Mild Nausea Verified 10/12/21 10:00 codeine Allergy Mild Nausea Verified 10/12/21 10:00 Penicillins Allergy Unknown Unknown Verified 10/12/21 10:00 cod Allergy Severe Unknown Uncoded 10/12/21 10:00 Review of Systems ROS Statement: Those systems with pertinent positive or pertinent negative responses have been documented in the HPI. Unable to obtain secondary to patient's baseline mental status. ROS Other: All systems not noted in ROS Statement are negative. Past Medical History Past Medical History: Chest Pain / Angina, Dementia, Hyperlipidemia, Hypertension, Memory Impairment, Osteoarthritis (OA), Sleep Apnea/CPAP/BIPAP Additional Past Medical History / Comment(s): Frontal lobe impairment, confused most of the time, impulsive, NIDDM type II, UTIs, UTI with sepsis, protein calorie malnutrition, iron anemia, hypokalemia, vitamin D deficiency, constipation, diverticular disease, DDD, low back pain, occasional incontinence, ubaldo denied hx of asthma. History of Any Multi-Drug Resistant Organisms: None Reported Past Surgical History: Back Surgery Additional Past Surgical History / Comment(s): Colonoscopy Past Anesthesia/Blood Transfusion Reactions: No Reported Reaction Past Psychological History: Anxiety, Depression Smoking Status: Unknown if ever smoked Past Alcohol Use History: Occasional Past Drug Use History: None Reported - Past Family History Father Family Medical History: Cancer Additional Family Medical History / Comment(s): Ubaldo does not know type of cancer. Mother Additional Family Medical History / Comment(s): HEART DISEASE General Exam - General Exam Comments Initial Comments: General: Appears in no acute distress. HEAD: Normal with no signs of head trauma. EYES: PERRLA, EOMI, conjunctiva normal, no discharge. ENT: Hearing grossly intact, normal oropharynx. No stridor auscultated. Pos terior oropharynx appears unremarkable. RESPIRATORY: Clear breath sounds bilaterally. No wheezes, rales, or rhonchi. No hypoxia. No increased work of breathing. Noisy breath sounds that seem to b e coming from her mouth. C/V: Regular rate and rhythm. S1 and S2 auscultated, no edema, peripheral pulses 2+ and intact throughout ABD: Abd is soft, nontender, nondistended EXT: Normal range of motion, no obvious deformity SKIN: No rashes or lesions observed on exposed skin. NEURO: Alert but not oriented. She is at her baseline. Cannot communicate and only speaks with noises. Limitations: altered mental status Course Vital Signs 10/12/21 10/12/21 10/12/21 09:53 11:22 11:27 Temperature 99.3 F Pulse Rate 70 68 Respiratory 26 H 20 20 Rate Blood Pressure 151/76 139/72 O2 Sat by Pulse 96 96 Oximetry 10/12/21 14:31 Temperature Pulse Rate 73 Respiratory 18 Rate Blood Pressure O2 Sat by Pulse 96 Oximetry Medical Decision Making - Medical Decision Making Based on patient's presentation and physical exam, we will obtain a broad workup to evaluate her noisy breathing/difficulty in breathing. This includes cardi opulmonary an infectious in etiology. We'll likely obtain a CT imaging to evaluate for foreign body as well. She'll be given a 1 L fluid bolus. Patient's, patient's EKG shows no signs of acute ischemia. Laboratory studies are remarkable for signs of a mild dehydration with a slightly elevated lactic acid of 2.3. Troponin is negative. Ddimer is normal. BNP is relatively within normal limits for her age. Urinalysis is unremarkable. Covid influenza swabs are negative. She has a slight leukocytosis but this is likely a combination of dehydration and stress. Chest x-ray shows no acute cardiopulmonary process. At this time, patient was reevaluated. Vital signs remained within normal eller its. We will obtain a chest CT at this time. Chest CT showed no focal consolidation, pleural effusion, pneumothorax. Is unremarkable CT. On reevaluation, patient is stable at this time. No changes in vital signs. No changes status. I believe it is safe to discharge her home. She will be given a Z-Krit to treat possible bronchitis and she is having some mild noisy breathing with cough. I did call the patient's guardian who was in agreement this plan. She'll be discharged back to her facility in good condition. - Lab Data Result diagrams: 10/12/21 11:01 10/12/21 11: Lab Results 10/12/21 10/12/21 10/12/21 Range/Units 11:01 11: 11:01 WBC 16.8 H (3.8-10.6) k/uL RBC 3.52 L (3.80-5.40) m/uL Hgb 12.1 (11.4-16.0) gm/dL Hct 37.4 (34.0-46.0) % MCV 106.3 H (80.0-100.0) fL MCH 34.4 (25.0-35.0) pg MCHC 32.3 (31.0-37.0) g/dL RDW 13.1 (11.5-15.5) % Plt Count 434 (150-450) k/uL MPV 7.8 Neutrophils % 86 % Lymphocytes % 8 % Monocytes % 4 % Eosinophils % 2 % Basophils % 1 % Neutrophils # 14.4 H (1.3-7.7) k/uL Lymphocytes # 1.3 (1.0-4.8) k/uL Monocytes # 0.7 (0-1.0) k/uL Eosinophils # 0.3 (0-0.7) k/uL Basophils # 0.1 (0-0.2) k/uL Macrocytosis Moderate PT 10.2 (9.0-12.0) sec INR 0.9 (<1.2) APTT 20.2 L (22.0-30.0) sec D-Dimer 0.53 (<0.60) mg/L FEU Sodium (137-145) mmol/L Potassium (3.5-5.1) mmol/L Chloride (98-107) mmol/L Carbon Dioxide (22-30) mmol/L Anion Gap mmol/L BUN (7-17) mg/dL Creatinine (0.52-1.04) mg/dL Est GFR (CKD-EPI)AfAm (>60 ml/min/1.73 sqM) Est GFR (CKD-EPI)NonAf (>60 ml/min/1.73 sqM) Glucose (74-99) mg/dL Lactic Ac Sepsis Rflx Plasma Lactic Acid Aren (0.7-2.0) mmol/L Calcium (8.4-10.2) mg/dL Total Bilirubin (0.2-1.3) mg/dL AST (14-36) U/L ALT (4-34) U/L Alkaline Phosphatase (38-126) U/L Troponin I (0.000-0.034) ng/mL NT-Pro-B Natriuret Pep pg/mL Total Protein (6.3-8.2) g/dL Albumin (3.5-5.0) g/dL Urine Color Yellow Urine Appearance Clear (Clear) Urine pH 6.5 (5.0-8.0) Ur Specific Nye 1.024 (1.001-1.035) Urine Protein Trace H (Negative) Urine Glucose (UA) Negative (Negative) Urine Ketones Negative (Negative) Urine Blood Moderate H (Negative) Urine Nitrite Negative (Negative) Urine Bilirubin Negative (Negative) Urine Urobilinogen <2.0 (<2.0) mg/dL Ur Leukocyte Esterase Trace H (Negative) Urine RBC 17 H (0-5) /hpf Urine WBC 9 H (0-5) /hpf Ur Squamous Epith Cells 1 (0-4) /hpf Urine Bacteria Rare H (None) /hpf Urine Mucus Occasional H (None) /hpf Coronavirus (PCR) (Not Detectd) Influenza Type A RNA (Not Detectd) Influenza Type B (PCR) (Not Detectd) 10/12/21 10/12/21 10/12/21 Range/Units 11:01 11:01 11:01 WBC (3.8-10.6) k/uL RBC (3.80-5.40) m/uL Hgb (11.4-16.0) gm/dL Hct (34.0-46.0) % MCV (80.0-100.0) fL MCH (25.0-35.0) pg MCHC (31.0-37.0) g/dL RDW (11.5-15.5) % Plt Count (150-450) k/uL MPV Neutrophils % % Lymphocytes % % Monocytes % % Eosinophils % % Basophils % % Neutrophils # (1.3-7.7) k/uL Lymphocytes # (1.0-4.8) k/uL Monocytes # (0-1.0) k/uL Eosinophils # (0-0.7) k/uL Basophils # (0-0.2) k/uL Macrocytosis PT (9.0-12.0) sec INR (<1.2) APTT (22.0-30.0) sec D-Dimer (<0.60) mg/L FEU Sodium 143 (137-145) mmol/L Potassium 4.1 (3.5-5.1) mmol/L Chloride 107 (98-107) mmol/L Carbon Dioxide 26 (22-30) mmol/L Anion Gap 10 mmol/L BUN 24 H (7-17) mg/dL Creatinine 0.84 (0.52-1.04) mg/dL Est GFR (CKD-EPI)AfAm 79 (>60 ml/min/1.73 sqM) Est GFR (CKD-EPI)NonAf 69 (>60 ml/min/1.73 sqM) Glucose 138 H (74-99) mg/dL Lactic Ac Sepsis Rflx Plasma Lactic Acid Aren 2.3 H* (0.7-2.0) mmol/L Calcium 9.2 (8.4-10.2) mg/dL Total Bilirubin 0.4 (0.2-1.3) mg/dL AST 18 (14-36) U/L ALT 16 (4-34) U/L Alkaline Phosphatase 91 (38-126) U/L Troponin I <0.012 (0.000-0.034) ng/mL NT-Pro-B Natriuret Pep pg/mL Total Protein 7.3 (6.3-8.2) g/dL Albumin 3.9 (3.5-5.0) g/dL Urine Color Urine Appearance (Clear) Urine pH (5.0-8.0) Ur Specific Nye (1.001-1.035) Urine Protein (Negative) Urine Glucose (UA) (Negative) Urine Ketones (Negative) Urine Blood (Negative) Urine Nitrite (Negative) Urine Bilirubin (Negative) Urine Urobilinogen (<2.0) mg/dL Ur Leukocyte Esterase (Negative) Urine RBC (0-5) /hpf Urine WBC (0-5) /hpf Ur Squamous Epith Cells (0-4) /hpf Urine Bacteria (None) /hpf Urine Mucus (None) /hpf Coronavirus (PCR) (Not Detectd) Influenza Type A RNA (Not Detectd) Influenza Type B (PCR) (Not Detectd) 10/12/21 10/12/21 10/12/21 Range/Units 11:01 11:01 11:01 WBC (3.8-10.6) k/uL RBC (3.80-5.40) m/uL Hgb (11.4-16.0) gm/dL Hct (34.0-46.0) % MCV (80.0-100.0) fL MCH (25.0-35.0) pg MCHC (31.0-37.0) g/dL RDW (11.5-15.5) % Plt Count (150-450) k/uL MPV Neutrophils % % Lymphocytes % % Monocytes % % Eosinophils % % Basophils % % Neutrophils # (1.3-7.7) k/uL Lymphocytes # (1.0-4.8) k/uL Monocytes # (0-1.0) k/uL Eosinophils # (0-0.7) k/uL Basophils # (0-0.2) k/uL Macrocytosis PT (9.0-12.0) sec INR (<1.2) APTT (22.0-30.0) sec D-Dimer (<0.60) mg/L FEU Sodium (137-145) mmol/L Potassium (3.5-5.1) mmol/L Chloride (98-107) mmol/L Carbon Dioxide (22-30) mmol/L Anion Gap mmol/L BUN (7-17) mg/dL Creatinine (0.52-1.04) mg/dL Est GFR (CKD-EPI)AfAm (>60 ml/min/1.73 sqM) Est GFR (CKD-EPI)NonAf (>60 ml/min/1.73 sqM) Glucose (74-99) mg/dL Lactic Ac Sepsis Rflx Plasma Lactic Acid Aren (0.7-2.0) mmol/L Calcium (8.4-10.2) mg/dL Total Bilirubin (0.2-1.3) mg/dL AST (14-36) U/L ALT (4-34) U/L Alkaline Phosphatase (38-126) U/L Troponin I (0.000-0.034) ng/mL NT-Pro-B Natriuret Pep 1020 pg/mL Total Protein (6.3-8.2) g/dL Albumin (3.5-5.0) g/dL Urine Color Urine Appearance (Clear) Urine pH (5.0-8.0) Ur Specific Nye (1.001-1.035) Urine Protein (Negative) Urine Glucose (UA) (Negative) Urine Ketones (Negative) Urine Blood (Negative) Urine Nitrite (Negative) Urine Bilirubin (Negative) Urine Urobilinogen (<2.0) mg/dL Ur Leukocyte Esterase (Negative) Urine RBC (0-5) /hpf Urine WBC (0-5) /hpf Ur Squamous Epith Cells (0-4) /hpf Urine Bacteria (None) /hpf Urine Mucus (None) /hpf Coronavirus (PCR) Not Detected (Not Detectd) Influenza Type A RNA Not Detected (Not Detectd) Influenza Type B (PCR) Not Detected (Not Detectd) 10/12/21 Range/Units 11:41 WBC (3.8-10.6) k/uL RBC (3.80-5.40) m/uL Hgb (11.4-16.0) gm/dL Hct (34.0-46.0) % MCV (80.0-100.0) fL MCH (25.0-35.0) pg MCHC (31.0-37.0) g/dL RDW (11.5-15.5) % Plt Count (150-450) k/uL MPV Neutrophils % % Lymphocytes % % Monocytes % % Eosinophils % % Basophils % % Neutrophils # (1.3-7.7) k/uL Lymphocytes # (1.0-4.8) k/uL Monocytes # (0-1.0) k/uL Eosinophils # (0-0.7) k/uL Basophils # (0-0.2) k/uL Macrocytosis PT (9.0-12.0) sec INR (<1.2) APTT (22.0-30.0) sec D-Dimer (<0.60) mg/L FEU Sodium (137-145) mmol/L Potassium (3.5-5.1) mmol/L Chloride (98-107) mmol/L Carbon Dioxide (22-30) mmol/L Anion Gap mmol/L BUN (7-17) mg/dL Creatinine (0.52-1.04) mg/dL Est GFR (CKD-EPI)AfAm (>60 ml/min/1.73 sqM) Est GFR (CKD-EPI)NonAf (>60 ml/min/1.73 sqM) Glucose (74-99) mg/dL Lactic Ac Sepsis Rflx Y Plasma Lactic Acid Aren (0.7-2.0) mmol/L Calcium (8.4-10.2) mg/dL Total Bilirubin (0.2-1.3) mg/dL AST (14-36) U/L ALT (4-34) U/L Alkaline Phosphatase (38-126) U/L Troponin I (0.000-0.034) ng/mL NT-Pro-B Natriuret Pep pg/mL Total Protein (6.3-8.2) g/dL Albumin (3.5-5.0) g/dL Urine Color Urine Appearance (Clear) Urine pH (5.0-8.0) Ur Specific Nye (1.001-1.035) Urine Protein (Negative) Urine Glucose (UA) (Negative) Urine Ketones (Negative) Urine Blood (Negative) Urine Nitrite (Negative) Urine Bilirubin (Negative) Urine Urobilinogen (<2.0) mg/dL Ur Leukocyte Esterase (Negative) Urine RBC (0-5) /hpf Urine WBC (0-5) /hpf Ur Squamous Epith Cells (0-4) /hpf Urine Bacteria (None) /hpf Urine Mucus (None) /hpf Coronavirus (PCR) (Not Detectd) Influenza Type A RNA (Not Detectd) Influenza Type B (PCR) (Not Detectd) - EKG Data -: EKG Interpreted by Me EKG Comments: 12-lead Electrocardiogram Interpretation Note EKG was reviewed and interpreted by myself. 12-lead ECG performed at 10 03 is in terpreted by me as revealing normal sinus rhythm at a rate of 69 beats per minute. [place] is normal. MO interval is 190 ms, QRS duration is 87 ms, QTc is 389 ms.. There were no ST or T wave abnormalities to suggest myocardial ischemia or injury. R wave progression across the precordium was satisfactory. By my interpretation this EKG is non-diagnostic for acute ischemia. Disposition Clinical Impression: Dehydration, Bronchitis, Dementia Disposition: HOME SELF-CARE Condition: Good Prescriptions: Azithromycin 250 mg PO DAILY 4 Days #4 tab Is patient prescribed a controlled substance at d/c from ED?: No Referrals: Luis Wan MD [Primary Care Provider] - 1-2 days Time of Disposition: 14:15
[2021-10-12] MEDS ORDERED: RX INFO: IV CONTRAST WAS GIVEN 1 EACH MISC MISCELLANE PRN (12:31)
[2021-10-12] MEDS ORDERED: SODIUM CHLORIDE 0.9% 1,000 ML IV STA (12:31)
[2021-10-12] MEDS ORDERED: LORazepam 2 MG/ML INJ IV STA (12:42)
--- NOTE | 2021-10-12 13:50 | CT ---
EXAMINATION TYPE: CT chest w con DATE OF EXAM: 10/12/2021 COMPARISON: CT chest 06/12/2021, chest radiograph same day HISTORY: Cough, Dyspnea of unknown etiology CT DLP: 905 mGycm. Automated Exposure Control for Dose Reduction was Utilized. TECHNIQUE: CT scan of the thorax is performed following with IV Contrast, patient injected with 100 mL of Isovue 300. FINDINGS: Cardiac size appears within normal limits. No pericardial effusion. Thoracic aorta is of normal calib er. Main pulmonary artery is of normal caliber without filling defects centrally. No mediastinal or h ilar lymphadenopathy. No axillary lymphadenopathy. Visualized esophagus appears unremarkable. Central airways are normal course and caliber. No focal consolidation, pleural effusion, or pneumotho rax. No suspicious pulmonary nodules. Limited views of the upper abdomen are unremarkable. Moderate multilevel degenerative changes of the thoracic spine. Mild superior endplate height loss of the L1 vertebral body, which is unchanged from 2020, and prominent Schmorl's node of the central L2 vertebral body is unchanged from 2 days ago; however, it is new from 2015. IMPRESSION: 1. No focal consolidation, pleural effusion, or pneumothorax.
[2021-10-12] MEDS ORDERED: AZITHROMYCIN 500 MG TAB PO STA (14:20)
[2021-10-12 14:32] VITALS: PULSE 73; RESP 18
== END 2021-10-12 16:03 | disposition home or self-care (01) ==
LOC: EC 09:51
DX: J20.9 Acute bronchitis, unspecified (principal); E86.0 Dehydration; F03.90 Unspecified dementia, unspecified severity, without behavioral disturbance, psychotic disturbance, mood disturbance, and anxiety; E78.5 Hyperlipidemia, unspecified; I10 Essential (primary) hypertension; M19.90 Unspecified osteoarthritis, unspecified site; F41.9 Anxiety disorder, unspecified; F32.A Depression, unspecified; Z20.822 Contact with and (suspected) exposure to COVID-19; Z79.84 Long term (current) use of oral hypoglycemic drugs; Z79.82 Long term (current) use of aspirin; Z88.0 Allergy status to penicillin; Z88.5 Allergy status to narcotic agent; Z87.440 Personal history of urinary (tract) infections
CPT/HCPCS: 99285; 96374; 96361; 36415; 93005; 85379; 83880; 80053; 83605; 84484; 85025; 85610; 85730; 81001; 87040; 87502; 87635; 71046; 71260; J2060; Q9967